=== PATIENT | female | born 1955 | race Caucasian/White ===

== ENCOUNTER 2017-07-11 07:23 | Day surgery (SDC) | payer BC ==
[~2017-07-11 07:23] MED LIST: LIDOCAINE 2% MDV 20 ML VIAL As Ordered; PROPOFOL 200 MG/20 ML VIAL As Ordered
[2017-07-11] MEDS: NS 1,000 ML IV (08:15)
[2017-07-11] MEDS ORDERED: PROPOFOL 200 MG/20 ML VIAL As Ordered ×2 (08:59)
== END 2017-07-11 09:45 | disposition home or self-care (01) ==
LOC: M OPP 07:23
DX: Z12.11 Encounter for screening for malignant neoplasm of colon (principal)
CPT/HCPCS: G0121

== ENCOUNTER → 2018-07-09 | Outpatient (CLI) | payer BC ==
[~2018-07-09] MED LIST changes: +CALCTAB29 PO; +ESTRCAP PO; +ESTRTAB10 PO; +FISH100049 PO; +GLUC1CAP10 PO; -LIDOCAINE 2% MDV 20 ML VIAL As Ordered; +MULTCAP11 PO; -PROPOFOL 200 MG/20 ML VIAL As Ordered
--- NOTE | 2018-07-09 10:43 | REPMRS ---
Patient History The patient states she had a clinical breast exam in June 2018. Patient is postmenopausal and is nulliparous. No known family history of cancer. 3D TOMOSYNTHESIS WAS PERFORMED. Digital Mammo Screening Bilat: July 09, 2018 - Exam #: [id number] Bilateral CC and MLO view(s) were taken. Technologist: Dione Matos, Technologist Prior study comparison: 2017, bilateral digital mammo screening bilat, performed at [facility]. FINDINGS: The breast tissue is heterogeneously dense. This may lower the sensitivity of mammography. There has been no change in the appearance of the mammogram from the prior studies. There is a moderate amount of residual fibroglandular tissue which is fairly symmetric. There is no interval development of dominant mass, areas of architectural distortion, or clustered microcalcification typical of malignancy. Assessment: BI-RADS/ACR category 1 mammogram. Negative Mammogram. Recommendation Routine screening mammogram in 1 year (for women over age 40). This mammogram was interpreted with the aid of an FDA-approved computer-aided dectection system. Electronically Signed By: Terry Mcleod MD 07/09/18 [id number]
== END ==
LOC: M RAD 09:07
PROVIDERS: ATTEND Internal Medicine
DX: Z12.31 Encounter for screening mammogram for malignant neoplasm of breast (principal); Z78.0 Asymptomatic menopausal state

== ENCOUNTER → 2018-08-13 | Outpatient (REF) | payer BC ==
[2018-08-13 16:33] LABS: BACTERIA, URINE AUTO NEGATIVE (NEGATIVE); RBC, URINE AUTO 4 /HPF (0-3); SQUAMOUS EPITHELIAL CELL UR AU 0 /HPF (0-6); WBC, URINE AUTO 1 /HPF (0-3)
== END ==
LOC: M LAB REF 16:18
PROVIDERS: ATTEND Internal Medicine
DX: R31.9 Hematuria, unspecified (principal)

== ENCOUNTER → 2018-09-03 | Outpatient (REF) | payer BC ==
[2018-09-03 14:31] LABS: APPEARANCE, URINE CLEAR (CLEAR); BACTERIA, URINE AUTO NEGATIVE (NEGATIVE); BILIRUBIN, URINE AUTO NEGATIVE (NEGATIVE); BLOOD, URINE BLOOD NEGATIVE (NEGATIVE); COLOR, URINE YELLOW (YELLOW); GLUCOSE, URINE (UA) AUTO NEGATIVE (NEGATIVE); KETONE, URINE AUTO NEGATIVE (NEGATIVE); LEUKOCYTE ESTERASE, URINE AUTO NEGATIVE (NEGATIVE); NITRITE, URINE AUTO NEGATIVE (NEGATIVE); PROTEIN, URINE AUTO NEGATIVE (NEGATIVE); RBC, URINE AUTO 0 /HPF (0-3); SPECIFIC GRAVITY URINE AUTO 1.012 (1.002-1.035); SQUAMOUS EPITHELIAL CELL UR AU 0 /HPF (0-6); UROBILINOGEN, URINE AUTO 0.2 mg/dL (0.0-2.0); WBC, URINE AUTO 0 /HPF (0-3)
== END ==
LOC: M SMT 13:33
PROVIDERS: ATTEND Nurse Practitioner Family
DX: R31.0 Gross hematuria (principal)

== ENCOUNTER → 2019-03-12 | Outpatient (REF) | payer BC ==
[2019-03-12 13:23] LABS: APPEARANCE, URINE CLEAR (CLEAR); BACTERIA, URINE AUTO NEGATIVE (NEGATIVE); BILIRUBIN, URINE AUTO NEGATIVE (NEGATIVE); BLOOD, URINE BLOOD NEGATIVE (NEGATIVE); COLOR, URINE STRAW (YELLOW); GLUCOSE, URINE (UA) AUTO NEGATIVE (NEGATIVE); KETONE, URINE AUTO NEGATIVE (NEGATIVE); LEUKOCYTE ESTERASE, URINE AUTO NEGATIVE (NEGATIVE); NITRITE, URINE AUTO NEGATIVE (NEGATIVE); PROTEIN, URINE AUTO NEGATIVE (NEGATIVE); RBC, URINE AUTO 0 /HPF (0-3); SPECIFIC GRAVITY URINE AUTO 1.004 (1.002-1.035); SQUAMOUS EPITHELIAL CELL UR AU 0 /HPF (0-6); UROBILINOGEN, URINE AUTO 0.2 mg/dL (0.0-2.0); WBC, URINE AUTO 0 /HPF (0-3)
== END ==
LOC: M SMT 13:00
PROVIDERS: ATTEND Nurse Practitioner Family
DX: R31.0 Gross hematuria (principal)

== ENCOUNTER → 2019-10-06 | Outpatient (CLI) | payer BC ==
--- NOTE | 2019-10-06 14:53 | REP ---
Clinical: Neoplasm. Technique: PA and lateral. Comparison: None. Findings: Diffuse left-sided parenchymal opacities and irregular pleural nodularity is suspicious for acute process including malignancy. Small right pleural effusion is also identified along with old healed right rib fracture. No cardiomegaly is suggested. Impression: Left sided opacities and pleural based lesions suspicious for pathology including neoplasm. Small right pleural effusion. Electronically Signed by Isael Inman MD 10/06/2019 02:44 P
== END ==
LOC: M RAD 14:21
PROVIDERS: ATTEND Internal Medicine
DX: D48.1 Neoplasm of uncertain behavior of connective and other soft tissue (principal); J90 Pleural effusion, not elsewhere classified

== ENCOUNTER → 2019-10-28 | Outpatient (REF) | payer BC ==
[~2019-10-28] MED LIST changes: +CALCD50TA PO; +FISH1000 PO; +MULTCAP PO; +XALK250C PO; +ZOFR8TAB24 PO
== END ==
LOC: M LAB REF 10:25
PROVIDERS: ATTEND Radiology Diagnostic Radiology
DX: N63.32 Unspecified lump in axillary tail of the left breast (principal)

== ENCOUNTER → 2019-10-29 | Outpatient (CLI) | payer BC ==
--- NOTE | 2019-12-03 15:47 | DEXA ---
AP SPINE L1 - L4 1.037 -1.3 0.3 LT FEMUR TOTAL 0.996 -0.1 1.0 LT NECK 0.923 -0.8 0.6 RT FEMUR TOTAL 1.007 0.0 1.1 RT NECK 0.943 -0.7 0.7 TOTAL BODY TOTAL OTHER COMMENTS:. Normal Bone Densitometry of the hips. There is low bone density of the spine, FOLLOW-UP: Recommendation for the next bone density exam: 2 years. YOUSIF
== END ==
LOC: M WHC 09:47
PROVIDERS: ATTEND Internal Medicine
DX: M81.8 Other osteoporosis without current pathological fracture (principal)

== ENCOUNTER → 2019-11-06 | Outpatient (CLI) | payer BC ==
[2020-01-25 15:45] LABS: GLUCOSE, FASTING SEE SEPARATE REPORT
== END ==
LOC: M LAB 09:26
PROVIDERS: ATTEND Physician Assistant
DX: R50.9 Fever, unspecified (principal); R19.7 Diarrhea, unspecified

== ENCOUNTER → 2019-11-06 | Outpatient (CLI) | payer BC | LOC: M LABSMTC 13:00 | PROVIDERS: ATTEND Pediatrics | DX: Z11.59 Encounter for screening for other viral diseases (principal); Z20.828 Contact with and (suspected) exposure to other viral communicable diseases ==

== ENCOUNTER → 2019-12-03 | Outpatient (CLI) | payer BC ==
--- NOTE | 2019-12-29 12:21 | REP ---
TOTAL BODY BONE SCAN REASON FOR EXAM: History of lung carcinoma. FINDINGS: After the intravenous administration of 22 mCi of Technetium-99m MDP, a total body bone scan was obtained. There is increased radionuclide accumulation seen in the thoracic spine particularly the upper thoracic level at the T2-T3 levels and at the T11 level. Increased radionuclide accumulation is also seen in the lumbar spine L2, L3, and L4. Increased radionuclide accumulation is seen with increased activity in multiple ribs, particularly right posterior first and second ribs, and right sixth rib along with left sixth, eighth, and ninth ribs posteriorly and the left fifth rib anteriorly. There is increased activity seen in the sacrum bilaterally and multifocally within the pelvis along the anterior superior iliac spine bilaterally and in the right acetabular region. Focal increased activity is seen in the proximal left femur and somewhat more subtly in the proximal right femur at the same level with a focal area of abnormal activity seen in the proximal right femoral diaphysis. 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 MTDD
== END ==
LOC: M RAD 07:54
PROVIDERS: ATTEND Internal Medicine Hematology & Oncology
DX: C34.90 Malignant neoplasm of unspecified part of unspecified bronchus or lung (principal); C79.51 Secondary malignant neoplasm of bone
CPT/HCPCS: 78306; A9503

== ENCOUNTER → 2019-12-04 | Outpatient (CLI) | payer BC ==
--- NOTE | 2019-12-04 14:33 | REPMRS ---
Patient History The patient states she has not had a clinical breast exam in over a year. No known family history of cancer. Digital Woman Screen Mammo: December 04, 2019 - Exam #: [id number] Bilateral CC and MLO view(s) were taken. Technologist: Enedina Harris, Technologist Prior study comparison: July 09, 2018, bilateral digital mammo screening bilat, performed at [facility]. 2017, bilateral digital mammo screening bilat, performed at [facility]. FINDINGS: The breast tissue is heterogeneously dense. This may lower the sensitivity of mammography. The Volpara volumetric breast density category is: C. There is a 10 mm new mass in the right breast axillary tail regoin. This merits further evaluation. There is a moderate amount of heterogeneously dense fibroglandular tissue which is fairly symmetric. There is no interval development of dominant mass, architectural distortion, or grouped microcalcification typical of malignancy. There has been no change in the appearance of the mammogram from the prior studies. 3-D tomosynthesis shows no additional findings. Assessment: BI-RADS/ACR category 0 mammogram, Incomplete: Need additional imaging evaluation and/or prior mammograms for comparison. Recommendation Ultrasound and special view mammogram of the right breast. This patient's Lifetime Breast Cancer RIsk is estimated at 8.0 %. This mammogram was interpreted with the aid of an FDA-approved computer-aided dectection system. Electronically Signed By: Jasbir Benavides MD 12/04/19 [id number]
--- NOTE | 2019-12-29 12:31 | REP ---
DIGITAL DIAGNOSTIC RIGHT BREAST MAMMOGRAPHY WITH CAD AND FOCUSED RIGHT BREAST SONOGRAPHY HISTORY: Screening mammography from earlier on this date with BI-RADS category 0 because of a nodular neodensity in the axillary tail region on the right. Diagnostic imaging was recommended. Comparison mammography is from July 09, 2018, and April 26, 2016. FINDINGS: Moderate scattered fibroglandular elements are seen. Magnified focal spot compression CC, true medial lateral, and MLO views confirm the presence of a fairly well circumscribed 10 mm spherical nodule in the axillary tail region of the right breast. No other mammographic finding. SONOGRAPHIC FINDINGS: Inferior to the axillary tail region there is a hypoechoic solid appearing lesion measuring 9 x 10 x 8 mm which is felt to correspond to the mammographic opacity. There is some enhanced through transmission. The lesion is superficial just under the skin. Also noted is a benign-appearing lymph node in the axilla with a thin cortical margin surrounding echogenic hilar fat. This measures 4.2 x 1.4 x 0.8 cm. IMPRESSION: BI-RADS category 4 suspicious right breast imaging. Nodular neodensity in the upper outer quadrant on the right breast mammographically corresponds to a solid appearing sonographic lesion. Ultrasound guided needle biopsy and marker clip placement is recommended with post clip placement unilateral right breast mammography. MTDD
== END ==
LOC: M WHC 11:54
PROVIDERS: ATTEND Internal Medicine
DX: N63.31 Unspecified lump in axillary tail of the right breast (principal); R92.2 Inconclusive mammogram
CPT/HCPCS: 76642; 77063; 77065; 77067; G0279

== ENCOUNTER → 2019-12-17 | Outpatient (CLI) | payer BC ==
[2019-12-17 17:19] VITALS: BP 122/64
--- NOTE | 2019-12-29 12:34 | REP ---
ULTRASOUND GUIDED RIGHT BREAST BIOPSY Dictated by SEJAL Hansen with Dr. Mcleod. The procedure was performed by SEJAL Hansen, under the direct supervision of Dr. Mcleod. The risks, benefits, and complications of the procedure were discussed with the patient prior to examination. An informed consent was obtained both written and verbally. Directly prior to the start of the procedure, a formal time-out was completed in the procedure room. The right breast was interrogated with ultrasound. An appropriate site was chosen for needle entry and this area was marked, prepped, and draped in a sterile fashion. Local and infiltrative anesthesia was achieved by using 10 mL of buffered Lidocaine. A skin mahendra was then made and through that skin mahendra, a 13-gauge co-axial needle was advanced to the mass under ultrasound guidance. Six core biopsy specimens were then obtained. The specimens were placed in formalin and will be sent to the lab for further evaluation. A marker clip was placed at the site of the biopsy. The biopsy device an co-axial needle were then removed and hemostasis was achieved and a soft dressing was applied to the entry site. The patient tolerated the procedure well and there were no immediate complications. The patient was given postcare instructions and discharged home. IMPRESSION: Uncomplicated ultrasound-guided right breast biopsy with microclip placement. [facility]
== END ==
LOC: M WHCPRO 14:41
PROVIDERS: ATTEND Internal Medicine
DX: C79.81 Secondary malignant neoplasm of breast (principal)

== ENCOUNTER → 2020-02-10 | Outpatient (CLI) | payer BC ==
[~2020-02-10] MED LIST changes: +GASTROGRAFIN SOLUTION 30ML (Q9963) As Ordered ONE; +ISOVUE-370 76% 100ML VIAL As Ordered ONE
--- NOTE | 2020-02-10 14:53 | REP ---
INDICATION: LUNG CA. COMPARISON: 10/08/2019 TECHNIQUE: Bolus 100 mL Isovue 370 scanning through the chest with coronal and sagittal reconstructions FINDINGS: There is dramatic improvement in the multiple parenchymal and pleural-based left lung mass is seen on the 10/08/2019 examination. There is pleural based soft tissue density remaining along the anterolateral aspect the left lung base involving the inferior segment of the lingula measuring 19 mm transverse by 6 mm thickness. Remainder of the upper lobe of pleural and parenchymal disease is no longer evident. In the lateral basal segment of the left lower lobe anteriorly sign other soft tissue dense area which has decreased in size now measuring about 3.6 by 1.5 cm, previously 4.9 x 4.1 cm at same level. Some linear fibro atelectatic changes in that same segment and also in the posterior basal segment with some nodular thickening. The right lung shows no definite infiltrates or masses. There is no pleural effusion today, the small right effusion on a previous abdomen CT study 11/17/2019 resolved. Heart is not enlarged there is no pericardial thickening or effusion the aorta is without aneurysm or dissection. Main, right and left pulmonary arteries are without filling defects in the mediastinum. There is no pathologic sized mediastinal or hilar adenopathy no axillary or supraclavicular mass. Bone windows show sclerotic focus anteriorly of the L1 vertebral body and at T2 and T3 sclerotic areas throughout those vertebral bodies consistent with bony metastatic disease endplate sclerosis seen at several levels and 1 focus of sclerosis in the T11 and T12 vertebral bodies as smaller hyperdense areas about 11 and 4 mm respectively. The T11 focus is slightly larger from the prior exam in the T12 focus was not seen. The L1 vertebral body is not in the field of view on the previous CT chest and the T2 and T3 findings are new. No compression fractures in the spine and the sternum, manubrium, clavicles, AC joints, scapulae as well as humeral heads and visualized ribs are grossly unremarkable. Please see CT abdomen report this date for discussion of the upper abdominal structures. There is a small hiatal hernia. IMPRESSION: A dramatic improvement in the of parenchymal and pleural based all lung masses on the left compared to the previous study in October. 2 areas persist as described above but both much smaller as discrete masses other curvilinear fibrotic changes noted with some thickening along their course which could also represent parenchymal disease from her lung malignancy. No findings in the left lung and overall a dramatic improvement. No effusion. Sclerotic lesions in multiple vertebral bodies as described <Electronically signed by Moo Sousa > 02/10/20 1657
--- NOTE | 2020-02-10 15:13 | REP ---
INDICATION: LUNG CA. COMPARISON: 11/17/2019 TECHNIQUE: Bolus of 100 mL Isovue 370 scanning through abdomen pelvis with coronal and sagittal reconstructions. Oral Gastrografin mixture per our bowel contrast protocol given. Delayed images through the abdomen. FINDINGS: CT abdomen: A dramatic improvement in the lesions in the right lung base as seen on chest CT the same day. See that report. Small hiatal hernia. There is 9 mm low-density focus in the right lobe of the liver that measured 15 mm on the previous CT. Posteriorly in the right hepatic lobe the ill-defined rim enhancing lesion on the previous study is much less well-defined and I cannot confidently identify it. Subtle left lobe lesion on the previous study is not identified today as well. There are no other liver findings or hepatomegaly. No biliary dilatation. Gallbladder grossly intact. No splenomegaly or focal lesion and no ascites in the upper abdomen. Pancreas was grossly intact. The aorta is without aneurysm. Nodular appearance of the left adrenal gland on previous study is also improved. I cannot measure a discrete nodule. Small bowel loops and colon in the abdominal portion of the scan are grossly intact. No perforation or free air. Bone windows show new prominent sclerotic focus at L2 with scattered sclerotic foci at T12, L1, L3-L4 and L5 with only the T12 and L2 lesions seen on the previous exam andmarginally larger today. About half the volume of L2 vertebral body is replaced by sclerotic metastatic disease. There also appears to be sclerosis and some thickening of the spinous process of L4 as a new metastatic finding. Visualized ribs grossly intact CT pelvis sacrum shows sclerotic focus in the right sacral ala and the right lamina. A sclerotic focus in right iliac bone posteriorly and another in the left with sclerosis in an area which was previously more lytic is also sclerosis in the left anterior superior iliac spine an area that was previously more lytic. The hips, intertrochanteric regions and proximal femoral shaft included unremarkable. There is 1 focus of sclerosis in the inferior pubic ramus on the right side. The uterus shows multiple calcified fibroids and irregular lobulated contour, enlarged but stable. No adnexal mass or pelvic free fluid. The colon is without colitis or diverticulitis. Small bowel loops in the distal ileum are unremarkable. Cecum shows no inflammatory changes and appendix is seen and normal. No ventral or inguinal hernia. IMPRESSION: 1. Progression of bony metastatic disease in the spine, sacrum pelvis and pubic bone as described. 2. Marked improvement in the right base lung and pleural masses, please see CT chest description for that finding. Clearing of the left effusion seen on the previous CT abdomen 11/17/2019. 3. Improvement in the metastatic lesions seen in the liver as described above. 4. Improvement in the nodular appearance of the left adrenal gland. <Electronically signed by Moo Sousa > 02/10/20 [id number]
== END ==
LOC: M RAD 11:25
PROVIDERS: ATTEND Internal Medicine Hematology & Oncology
DX: C34.90 Malignant neoplasm of unspecified part of unspecified bronchus or lung (principal)

== ENCOUNTER → 2020-02-17 | Outpatient (CLI) | payer BC ==
[~2020-02-17] MED LIST changes: -GASTROGRAFIN SOLUTION 30ML (Q9963) As Ordered ONE; -ISOVUE-370 76% 100ML VIAL As Ordered ONE
--- NOTE | 2020-02-17 16:13 | REP ---
INDICATION: TENDERNESS ? BAKERS CYST RT KNEE, HX LUNG CA. COMPARISON: None TECHNIQUE: Multiple ultrasonographic images of the deep venous structures of the right thigh were obtained from the level of the common femoral vein to the popliteal vein in the longitudinal and transverse scan planes along with Doppler interrogation and color flow Doppler imaging. FINDINGS: There is no abnormal echogenic material seen within any of the visualized deep venous structures that would suggest acute thrombosis. Coaptation is unremarkable throughout. Doppler interrogation shows an expected response to respiratory variability and augmentation. The color flow Doppler images show what appears to be a normal vascular pattern throughout. There is a 5.1 x 1.3 x 4.1 cm popliteal fossa cyst. IMPRESSION: There is no ultrasonographic evidence of deep venous thrombosis involving any of the visualized deep venous structures of the right thigh as described above. Popliteal fossa cyst measuring 5.1 x 4.1 x 1.3 cm. Accredited by the [employer] in Vascular Peripheral Ultrasound. <Electronically signed by Moo Sousa > 02/17/20 [id number]
== END ==
LOC: M RAD 15:45
PROVIDERS: ATTEND Internal Medicine Hematology & Oncology
DX: M71.21 Synovial cyst of popliteal space [Baker], right knee (principal); Z85.118 Personal history of other malignant neoplasm of bronchus and lung

== ENCOUNTER → 2020-05-16 | Outpatient (CLI) | payer BC ==
[~2020-05-16] MED LIST changes: +GASTROGRAFIN SOLUTION 30ML (Q9963) As Ordered ONE; +ISOVUE-370 76% 100ML VIAL As Ordered ONE; +MULT-90 PO
--- NOTE | 2020-05-17 07:55 | ECGEPIP ---
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
--- NOTE | 2020-05-17 08:17 | REP ---
INDICATION: F/U LUNG CA COMPARISON: 02/10/2020 TECHNIQUE: Axial contrast enhanced images from the thoracic inlet to the upper abdomen with 100 ml Isovue 370 intravenous contrast material followed by CT of the abdomen and pelvis. Coronal and sagittal reformations obtained. This CT examination was performed using the following dose reduction techniques: Automated exposure control, adjustment of mA and/or kv according to the patient's size, and use of iterative reconstruction technique. FINDINGS: Nodular areas of soft tissue at the left base along with linear fibro atelectatic changes primarily in the left lower lobe are again identified and essentially unchanged. The right hemithorax is clear. No new area of consolidation, nodule or mass lesion identified. No effusion. No pneumothorax. Tracheobronchial tree is patent. No significant adenopathy noted. Further evaluation of the mediastinum demonstrates stable appearance to the thoracic aorta, pulmonary vasculature, and heart/pericardium. No aortic aneurysm or dissection. No cardiomegaly or pericardial effusion. Skeletal structures again demonstrate scattered sclerotic changes in multiple thoracic vertebral bodies which are relatively similar to prior examination. IMPRESSION: 1. Nodular soft tissue and linear fibro atelectatic changes in the left lung base remains stable. 2. No new acute mediastinal or pleuroparenchymal process appreciated. 3. Scattered sclerotic foci within multiple thoracic and upper lumbar vertebral bodies similar to prior examination. <Electronically signed by Isael Inman > 05/17/20 0815
--- NOTE | 2020-05-17 08:25 | REP ---
INDICATION: F/U LUNG CA. COMPARISON: 02/10/2020 TECHNIQUE: Axial contrast-enhanced images from the lung bases to the pubic symphysis using oral and 100 cc Isovue 370 intravenous contrast material. . This CT examination was performed using the following dose reduction techniques: Automated exposure control, adjustment of mA and/or kv according to the patient's size, and the use of iterative reconstruction technique. FINDINGS: Liver, spleen, pancreas, gallbladder, bilateral adrenal glands and kidneys are normal. Previously noted hepatic lesions are not identifiable on current exam. Enteric system demonstrates small hiatal hernia and no evidence for bowel obstruction or acute inflammatory process. Normal terminal ileum and appendix are identified in the right lower quadrant. Pelvis demonstrates markedly enlarged heterogeneous myomatous uterus with dystrophic calcifications in a large degenerating fibroid. Bladder is normal. No ascites. No free air. No obvious adenopathy. No obvious solitary mass lesion. Abdominal aorta and vasculature normal. Skeletal structures demonstrate diffuse stable sclerotic metastatic foci unchanged from prior examination. IMPRESSION: 1. No obvious acute abdominopelvic pathology appreciated. No evidence for malignancy or metastatic disease. Previously noted hepatic lesions are not identifiable on current exam. 2. Enlarged uterus with dystrophic degenerating fibroid. 3. Small hiatal hernia. 4. Stable skeletal metastases. <Electronically signed by Isael Inman > 05/17/20 0868
== END ==
LOC: M RAD 08:03 → M EKG 08:03
PROVIDERS: ATTEND Internal Medicine Hematology & Oncology
DX: C34.00 Malignant neoplasm of unspecified main bronchus (principal)
CPT/HCPCS: 71260; 74177; 93005; Q9963; Q9967

== ENCOUNTER → 2020-08-31 | Outpatient (CLI) | payer MEDICARE, BC ==
[~2020-08-31] MED LIST changes: +COVI100V IM; -GASTROGRAFIN SOLUTION 30ML (Q9963) As Ordered ONE; -ISOVUE-370 76% 100ML VIAL As Ordered ONE
--- NOTE | 2020-08-31 14:07 | REPVR ---
PROCEDURE INFORMATION: Exam: CT Abdomen And Pelvis Without Contrast Exam date and time: 08/31/2020 12:59 PM Age: 65 years old Clinical indication: Condition or disease; Cancer; Other: Lung; Additional info: Lung CA TECHNIQUE: Imaging protocol: Computed tomography of the abdomen and pelvis without contrast. Radiation optimization: All CT scans at this facility use at least one of these dose optimization techniques: automated exposure control; mA and/or kV adjustment per patient size (includes targeted exams where dose is matched to clinical indication); or iterative reconstruction. COMPARISON: CT ABD PELVIS WITH CONTRAST 05/16/2020 9:57 AM FINDINGS: Liver: Normal. No mass. Gallbladder and bile ducts: Normal. No calcified stones. No ductal dilation. Pancreas: Normal. No ductal dilation. Spleen: Normal. No splenomegaly. Adrenal glands: Normal. No mass. Kidneys and ureters: Normal. No hydronephrosis. Stomach and bowel: Unremarkable. No obstruction. No mucosal thickening. Appendix: No evidence of appendicitis. Intraperitoneal space: Unremarkable. No free air. No significant fluid collection. Vasculature: Unremarkable. No abdominal aortic aneurysm. Lymph nodes: Unremarkable. No enlarged lymph nodes. Urinary bladder: Unremarkable as visualized. Reproductive: Fibroid uterus. Bones/joints: Metastatic disease to the lumbar spine appears stable. Metastatic disease is stable in the pelvis. Soft tissues: Unremarkable. Other findings: The chest will be discussed on a separate exam. IMPRESSION: No change. Electronically signed by: Cali Mcclain On 08/31/2020 14:07:00 PM
--- NOTE | 2020-08-31 14:18 | REPVR ---
PROCEDURE INFORMATION: Exam: CT Chest Without Contrast; Diagnostic Exam date and time: 08/31/2020 12:59 PM Age: 65 years old Clinical indication: Condition or disease; Lung condition and disease; Cancer of the lung; Bilateral; Unspecified; Additional info: Lung CA TECHNIQUE: Imaging protocol: Diagnostic computed tomography of the chest without contrast. Radiation optimization: All CT scans at this facility use at least one of these dose optimization techniques: automated exposure control; mA and/or kV adjustment per patient size (includes targeted exams where dose is matched to clinical indication); or iterative reconstruction. COMPARISON: CT Chest with contrast 05/16/2020 9:57 AM FINDINGS: Lungs: There is a stable density noted involving the left lower lobe adjacent to the left pericardial fat pad measuring 11.5 mm image 201/63. The right lung demonstrates minimal stable basilar scarring. Pleural spaces: Unremarkable. No pneumothorax. No pleural effusion. Heart: Unremarkable. Aorta: The ascending aorta is dilated to 38 mm. This is unchanged. Lymph nodes: There is no evidence of abnormal mediastinal hilar adenopathy given limitations of no intravenous contrast. Bones/joints: Stable metastatic disease is noted to the spine. Soft tissues: Unremarkable. Other findings: The abdomen and pelvis will be discussed in another dictation. The mild scarring is seen in the left base as well. IMPRESSION: No change. Limited mediastinal and hilar evaluation due to lack of intravenous contrast. Electronically signed by: Cali Mcclain On 08/31/2020 14:18:04 PM
== END ==
LOC: M RAD 12:44
PROVIDERS: ATTEND Internal Medicine Hematology & Oncology
DX: C34.90 Malignant neoplasm of unspecified part of unspecified bronchus or lung (principal); R91.8 Other nonspecific abnormal finding of lung field

== ENCOUNTER → 2020-12-05 | Outpatient (CLI) | payer MEDICARE, BC ==
[~2020-12-05] MED LIST changes: +TUMS500C PO
--- NOTE | 2020-12-07 06:06 | REPMRS ---
Patient History The patient states she had a clinical breast exam in September 2020. No known family history of cancer. Malignant US guided breast biopsy. of the right breast, December 17, 2019. No breast complaints today Patient signed the MRS sheet 1st covid vaccine 06/09/20-right arm-Moderna 2nd covid vaccine 07/07/20-right arm Priors on PACS Patient Identification Verified Digital Woman Screen Mammo: December 05, 2020 - Exam #: [id number] Bilateral CC and MLO view(s) were taken. Technologist: Dione Matos, Technologist Prior study comparison: December 04, 2019, bilateral digital woman screen mammo performed at [facility]. July 09, 2018, bilateral digital mammo screening bilat, performed at [facility]. 2017, bilateral digital mammo screening bilat, performed at [facility]. FINDINGS: The breast tissue is heterogeneously dense. This may lower the sensitivity of mammography. The Volpara volumetric breast density category is: C. There is a moderate amount of heterogeneously dense fibroglandular tissue which is fairly symmetric. There is no interval development of dominant mass, architectural distortion, or grouped microcalcification typical of malignancy. There has been no change in the appearance of the mammogram from the prior studies. 3-D tomosynthesis shows no additional findings. Assessment: BI-RADS/ACR category 1 mammogram. Negative Mammogram. Recommendation Routine screening mammogram of both breasts in 1 year (for women over age 40). This mammogram was interpreted with the aid of an FDA-approved computer-aided dectection system. Electronically Signed By: Jasbir Benavides MD 12/05/20 2832
== END ==
LOC: M WHC 10:49
PROVIDERS: ATTEND Internal Medicine
DX: Z12.31 Encounter for screening mammogram for malignant neoplasm of breast (principal)

== ENCOUNTER → 2020-12-13 | Outpatient (CLI) | payer MEDICARE, BC ==
[~2020-12-13] MED LIST changes: +GASTROGRAFIN SOLUTION 30ML (Q9963) As Ordered ONE; +ISOVUE-370 76% 100ML VIAL As Ordered ONE
--- NOTE | 2020-12-13 14:05 | REPVR ---
PROCEDURE INFORMATION: Exam: CT Neck With Contrast Exam date and time: 12/13/2020 1:34 PM Age: 65 years old Clinical indication: Condition or disease; Cancer; Other: Lung; Additional info: Lung CA TECHNIQUE: Imaging protocol: Computed tomography images of the neck with contrast. Radiation optimization: All CT scans at this facility use at least one of these dose optimization techniques: automated exposure control; mA and/or kV adjustment per patient size (includes targeted exams where dose is matched to clinical indication); or iterative reconstruction. Contrast material: ISOVUE 370; Contrast volume: 75 ml; Contrast route: INTRAVENOUS (IV); COMPARISON: CT Chest without contrast 08/31/2020 12:57 PM FINDINGS: Brain: Mild atrophic changes in the brain. Orbital cavity: The orbits are intact. Mastoid air cells: The mastoids are well aerated. Paranasal sinuses: No air-fluid levels in the paranasal sinuses. Nasopharynx: Unremarkable. Dental: Artifact from patient's dental hardware limits evaluation of the neck. Oropharynx: Unremarkable. No significant tonsillar enlargement. Hypopharynx: Unremarkable. Larynx: Unremarkable. Normal epiglottis. Retropharyngeal space: Unremarkable. Submandibular/Parotid glands: Normal. Glands are normal in size. Thyroid: 7 mm low-density lesion in the left thyroid lobe not requiring follow-up. Lymph nodes: No confluent lymphadenopathy. Trachea: Visualized trachea is unremarkable. Lungs: The included lung bases are clear. Bones/joints: No acute fracture. Age-appropriate degenerative changes without lytic or blastic disease. Vasculature: No venous thrombus. Soft tissues: Unremarkable. No significant soft tissue swelling. IMPRESSION: 1. No dominant mass or confluent lymphadenopathy. 2. Thyroid lesion not requiring follow-up. 3. Limited exam due to metallic streak artifact. COMMENTS: Consistent with the [employer]'s Incidental Findings Committee white paper (J [employer] Twin Radiol 2015): In patients aged 35 years and older with an incidental thyroid nodule equal to or greater than 1.[address], MRI or extrathyroidal US, further evaluation with dedicated thyroid US is recommended for patients with normal life expectancy and without comorbidities. For smaller nodules without suspicious features, no further evaluation or follow up is recommended. Electronically signed by: Sid Pratt On 12/13/2020 14:05:18 PM
--- NOTE | 2020-12-13 14:32 | REP ---
INDICATION: LUNG CA. COMPARISON: Multiple the latest 08/31/2020 TECHNIQUE: Standard helical technique after the intravenous administration of 100 cc Isovue 370 and oral bowel preparatory contrast administration. FINDINGS: The lung bases are unchanged. There is a nodular density in the cristina basal segment of the left lower lobe status quo. The liver, gallbladder, spleen, pancreas, adrenal glands, and kidneys are essentially unchanged the abdominal aorta and para-aortic regions are within normal limits. The bowel loops and the mesenteries are essentially unchanged there is no mass or adenopathy. There is no evidence of free fluid or free air. Calcific uterine myomatous changes status quo. No significant change in appearance of the osseous metastatic disease. IMPRESSION: No significant change. Findings as described above. <Electronically signed by Doni Carson > 12/13/20 [id number]
--- NOTE | 2020-12-13 14:45 | REP ---
INDICATION: LUNG CA COMPARISON: Multiple the latest 08/31/2020 noncontrast enhanced exam TECHNIQUE: Standard helical technique after the intravenous administration of 100 cc Isovue 370. FINDINGS: There is no significant change in appearance of the mediastinum or pulmonary sol. There is no evidence of a mass or adenopathy. There are no pleural or pericardial effusions. Evaluation of the osseous structures again shows skeletal metastatic disease status quo. Evaluation of the lung berkowitz shows a new pleural base nodule in the inferior lingula which measures 9 mm. There is an unchanged nodular density in the cristina basal segment of the left lower lobe. There is cylindrical bronchiectasis status quo. There is stable biapical pleuroparenchymal scarring. IMPRESSION: 1. There is a new pleural base nodule in the inferior lingula as described above. According to the revised Fleischner society criteria CT-PET is warranted. 2. Chronic lung field changes as described above. 3. Other findings as described above. <Electronically signed by Doni Carson > 12/13/20 [id number]
== END ==
LOC: M RAD 11:34
PROVIDERS: ATTEND Internal Medicine Hematology & Oncology
DX: C34.90 Malignant neoplasm of unspecified part of unspecified bronchus or lung (principal)
CPT/HCPCS: 70491; 71260; 74177; Q9963; Q9967

== ENCOUNTER → 2021-01-02 | Outpatient (CLI) | payer MEDICARE, BC ==
[~2021-01-02] MED LIST changes: -GASTROGRAFIN SOLUTION 30ML (Q9963) As Ordered ONE; -ISOVUE-370 76% 100ML VIAL As Ordered ONE
--- NOTE | 2021-01-02 17:43 | REP ---
INDICATION: RESTAGING LEFT LUNG CANCER C34.82. COMPARISON: Comparison CT study of the chest and abdomen pelvis 13 December 2020. TECHNIQUE: Fifty-four minutes following the intravenous injection of a 8.60 mCi dose of F-18 FDG, three-dimensional PET scintigraphy is acquired from the skull base to the proximal thighs. Triplanar noncontrast CT scanning is acquired through the same anatomic range for attenuation correction, and image registration with scan parameters optimized to minimize radiation exposure to the patient. PET scintigraphy and CT datasets were fused and displayed on a workstation with multiplanar and projection display capability. FINDINGS: Head and neck soft tissues are unremarkable. No axillary or supraclavicular adenopathy is seen. There is mildly hypermetabolic uptake in the recently identified new nodule in the lingular segment of the left upper lobe. Maximum standard uptake value is 2.80. There is discernible but non hypermetabolic uptake in a tiny pleural based nodule in the left lower lobe maximum SUV 1.43. There is some nodular soft tissue density in the left lateral pleural angle. One of these nodular areas is mildly hypermetabolic, 2.97. There is discernible but non hypermetabolic uptake in a tiny pleural based nodular density in the left apex, SUV 1.78. No other abnormal pulmonary parenchymal hypermetabolic uptake is seen. There is a hypermetabolic nodule in the left lobe of the liver consistent with metastasis. Maximum standard uptake value is 14.77. In addition, there is hypermetabolic periportal lymphadenopathy. Maximum standard uptake value in this location is 19.68. No other focal liver lesion is seen. No other abnormal hypermetabolic uptake is seen in the abdomen or pelvis. No abnormal skeletal uptake is seen. Calcifications associated with the uterine leiomyomas are seen in the pelvis. The uterus is not hypermetabolic. IMPRESSION: There is a lesion in the left lobe of the liver and periportal adenopathy in the upper abdomen which are both rather hypermetabolic. There are multiple foci of mildly increased uptake in the left chest, predominantly in a pleural based nodular pattern. Findings are consistent with metastatic disease. <Electronically signed by Jasbir Benavides > 01/02/21 [id number]
== END ==
LOC: M PLARAD 13:18
PROVIDERS: ATTEND Internal Medicine Hematology & Oncology
DX: C34.82 Malignant neoplasm of overlapping sites of left bronchus and lung (principal)
CPT/HCPCS: 78815; A9552

== ENCOUNTER → 2021-03-01 | Outpatient (CLI) | payer MEDICARE, BC ==
[~2021-03-01] MED LIST changes: +GASTROGRAFIN SOLUTION 30ML (Q9963) As Ordered ONE; +ISOVUE-370 76% 100ML VIAL As Ordered ONE
--- NOTE | 2021-03-01 16:19 | REP ---
INDICATION: MALIGNANT NEOPLASM OF OVRLP SITES OF UNSP BRONCHUS. COMPARISON: 12/13/2020 TECHNIQUE: Axial contrast-enhanced images from the lung bases to the pubic symphysis using oral and 100 cc Isovue 370 intravenous contrast material. Delayed images of the abdomen with coronal and sagittal reformations obtained. This CT examination was performed using the following dose reduction techniques: Automated exposure control, adjustment of mA and/or kv according to the patient's size, and the use of iterative reconstruction technique. FINDINGS: Lung bases are clear. Liver again demonstrates 1.6 cm lesion in the left lateral segment which may represent hemangioma versus malignancy/metastatic focus. Spleen, pancreas, gallbladder, bilateral adrenal glands and kidneys are normal. There is soft tissue in the sadia hepatis concerning for adenopathy (series 201; images 21-30). The enteric system including stomach, small, and large bowel appears normal. No evidence for obstruction or acute inflammatory process. Normal terminal ileum and appendix are identified in the right lower quadrant. Pelvis demonstrates normal bladder and enlarged myomatous uterus with degenerating calcified fibroids noted. No ascites. No free air. No intraperitoneal or retroperitoneal adenopathy. Abdominal aorta and vasculature appear normal. Skeletal structures demonstrate scattered sclerotic foci consistent with metastatic lesions. IMPRESSION: 1. 1.6 cm lesion in the left hepatic lobe concerning for metastatic disease given the patient's history. 2. Periportal adenopathy suspected inseparable from the adjacent pancreatic head and duodenum making measurements and further evaluation difficult. 3. Stable metastatic osseous lesions. <Electronically signed by Isael Inman > 03/01/21 [id number]
== END ==
LOC: M RAD 13:54
PROVIDERS: ATTEND Internal Medicine Medical Oncology
DX: C34.80 Malignant neoplasm of overlapping sites of unspecified bronchus and lung (principal); K76.89 Other specified diseases of liver
CPT/HCPCS: 74177; Q9963; Q9967

== ENCOUNTER → 2021-03-17 | Outpatient (CLI) | payer MEDICARE, BC ==
[~2021-03-17] MED LIST changes: -GASTROGRAFIN SOLUTION 30ML (Q9963) As Ordered ONE; -ISOVUE-370 76% 100ML VIAL As Ordered ONE; +PROL60SO SC
--- NOTE | 2021-03-17 12:44 | RADONC.CN ---
Radiation Oncology Hx/Consult Radiation Oncology Consult Date of Service: Mar 17, 2021 Pt Identifier Vicki Hernandez is a 65 year old female never smoker with a history of ROS1+ metastatic NSCLC diagnosed in 2019. She has been on crizotinib since diagnosis. She has had stable disease until PET-CT on 01/02/21 revealed progression in periportal adenopathy as well as a solitary lesion in segment 3 of the liver. She is seen today for consideration of palliative RT to these oligoprogressive lesions. Diagnosis/Treatment History Oncologic History As above Recent data: 03/01/21 CT abdomen pelvis 1. 1.6 cm lesion in the left hepatic lobe concerning for metastatic disease given the patient's history. 2. Periportal adenopathy suspected inseparable from the adjacent pancreatic head and duodenum making measurements and further evaluation difficult. 3. Stable metastatic osseous lesions. Interval History Vicki feels well. She is tolerating crizotinib without any discernible side effects. Recently transitioned to Dr. Perry @ [facility] for care. Recommended she stay on crizotinib. She has no diarrhea, no nausea, no abdominal pain. Appetite and weight are stable. Past Medical History: HPL HTN Past Surgical History: Trigger finger release Family History: No family cancer history Social History: Never smoker 1 drink per week Allergies / Meds Allergies: Coded Allergies: No Known Allergies (Unverified , 07/03/17) Home Meds Reported Medications Crizotinib (Xalkori) 250 Mg Capsule, 1 CAP PO BID for 30 Days, #60 CAP 03/17/21 Denosumab Injection (Prolia) 60 Mg/1 Ml Syringe, 60 MG SC, SYRINGE 03/17/21 Calcium Carbonate (Tums) 200 Mg Tab.chew, 1 TAB PO DAILY for cough and congestion for 7 Days, #56 TAB 09/28/20 Covid-19 Vacc,Mrna(Moderna)/Pf (Moderna Covid19 Vacc(Unapprov)) 100 Mcg/0.5 Ml Vial, 100 MCG IM, VIAL 07/27/20 Multivitamin (Multivitamin) 1 Each Tablet, 1 EACH PO DAILY, TAB 03/30/20 Calcium/Vitamin D (Calcium 500-Vit D3 200 Tablet) 1 Each Tablet, 1 TAB PO BID for 30 Days, #60 TAB 01/01/20 Soy Isofl/Blk Coh/Gr Tea/Yerba ([employer] Caplet) 1 Tab Tab, 1 TAB PO DAILY, TAB 3/28/18 Review of Systems Constitutional: Denies: Fatigue, Weight Loss, Normal appetite HEENT: Denies: Head Aches Pulmonary: Denies: Dyspnea, Cough Cardiovascular: Denies: Chest Pain, Edema Gastrointestinal: Denies: Abdominal Pain, Diarrhea Hematologic: Denies: Enlarged Lymph Nodes Neurological: Denies: Weakness, Numbness Psych: Reports: Mood Normal Vital Signs Ht 66" Wt 159 lbs BMI 25.7 T 99.3 P 63 RR 18 BP 120/75 O2 100% Pain 0 Fatigue 0 General Exam: Alert, Cooperative, No Acute Distress Eye Exam: PERRLA, EOMI ENT EXAM: Atraumatic Neck Exam: Supple Chest Exam: Clear to auscultation, Normal air movement Heart Exam: Rate Normal Abdomen Exam: Soft Extremity Exam: Negative: Edema Skin Exam: Nl turgor and temperature Neuro Exam: Normal Gait, Normal Speech, Cranial Nerves 3-12 NL Psych Exam: Mental status NL Diagnostic and Laboratory Diagnostic Review Radiologic images, relevant labs and pathology reports were personally reviewed and discussed with Ms. Hernandez. Assessment and Plan Impression Ms. Hernandez is a 65 year old female with a history of never smoker with a history of ROS1+ metastatic NSCLC diagnosed in 2019. She has been on crizotinib since diagnosis. She has had stable disease until PET-CT on 01/02/21 revealed progression in periportal adenopathy as well as a solitary lesion in segment 3 of the liver. She is seen today for consideration of palliative RT to these oligoprogressive lesions. Stage Left upper lobe NSCLC [id number] ROS1+ stage IVB Performance Status ECOG 0 Plan We had an extensive discussion with Ms. Hernandez regarding the diagnosis at hand and available therapeutic options. She is tolerating crizotinib well. She has oligoprogressive disease in liver segment 3 a 1.6 cm lesion, and a 4 cm aggregate of periportal LNs. Dr. Perry recommends she stat on this medication as the remainder of disease is quiescent. I recommend that we irradiate the lesions in question, I will give ~ 50 Gy in 10 fractions to each lesion, given this clinical scenario I will use expiration breath hold technique and daily CBCT to ensure accurate localization. I anticipate that the targets will have to be treated di-isocentrically, with DCA planning. We discussed the logistics of receiving radiation therapy in detail including the need for a 1-time planning session. This can occur in the coming week. I reviewed the side effects of treatment namely, fatigue, nausea, and diarrhea. I would obtain a response assessment CT abdomen and pelvis @ 3 months post- treatment. After discussing the risks, benefits and alternatives to radiation therapy, Ms. Hernandez was amenable to pursuing radiotherapy. All questions were answered to t he patient's satisfaction. We instructed the patient that if there were any questions,concerns or changes in clinical status in the interim to contact us. Recommendations RT to the periportal LNs, and segment 3 lesion ~50 Gy in 10 fractions Simulation in the coming week Billing Statement Total time of [52] minutes was spent preparing for the visit [4], obtaining HPI [8], examining the patient [3], reviewing diagnostic tests [10], discussing management options [15], coordinating care [3], and writing this note [9]. JEAN CARLOS NOVOA MD Mar 17, 2021 12:44
== END ==
LOC: M ONCR 09:50
PROVIDERS: ATTEND General Practice
DX: C34.90 Malignant neoplasm of unspecified part of unspecified bronchus or lung (principal); C78.7 Secondary malignant neoplasm of liver and intrahepatic bile duct; Z79.899 Other long term (current) drug therapy

== ENCOUNTER 2021-03-27 13:41 | Outpatient (RCR) | payer MEDICARE, BC ==
[2021-03-27] MEDS ORDERED: ONDA-83 PO (16:08)
== END 2021-04-07 ==
LOC: M ONCR 13:41
PROVIDERS: ATTEND General Practice
DX: C78.7 Secondary malignant neoplasm of liver and intrahepatic bile duct (principal)

== ENCOUNTER → 2021-04-20 | Outpatient (CLI) | payer MEDICARE, BC ==
[~2021-04-20] MED LIST changes: +ONDA-83 PO
[2021-04-20 13:25] LABS: BASO % 0.2 % (0.0-1.0); EOS # 0.1 10^3/uL (0.0-0.5); EOS % 1.6 % (0.0-3.0); HEMOGLOBIN 12.3 g/dl (12.0-15.5); LYMPH % 19.7 % (24.0-44.0); MEAN CORPUSCULAR HEMOGLOBIN 31.5 pg (27.0-33.0); MEAN CORPUSCULAR HGB CONC 32.4 g/dl (32.0-36.5); MEAN CORPUSCULAR VOLUME 97.2 fl (80.0-96.0); MONO # 0.7 10^3/uL (0.0-0.8); MONO % 13.9 % (2.0-8.0); NEUTROPHILS # 3.3 10^3/uL (1.5-8.5); PLATELET COUNT, AUTOMATED 340 10^3/uL (150-450); RED BLOOD COUNT 3.91 10^6/uL (4.00-5.40); WHITE BLOOD COUNT 5.1 10^3/uL (4.0-10.0)
[2021-04-20 13:54] LABS: ALBUMIN 3.4 GM/DL (3.2-5.2); ALT/SGPT 46 U/L (12-78); BILIRUBIN,TOTAL 0.3 MG/DL (0.2-1.0); BLOOD UREA NITROGEN 14 MG/DL (7-18); CALCIUM LEVEL 8.9 MG/DL (8.8-10.2); CARBON DIOXIDE LEVEL 30 MEQ/L (21-32); CHLORIDE LEVEL 104 MEQ/L (98-107); CREATININE FOR GFR 0.85 MG/DL (0.55-1.30); GLOMERULAR FILTRATION RATE > 60.0 (>45); GLUCOSE, FASTING 97 MG/DL (70-100); POTASSIUM SERUM 4.9 MEQ/L (3.5-5.1); SODIUM LEVEL 140 MEQ/L (136-145); TOTAL PROTEIN 6.9 GM/DL (6.4-8.2)
== END ==
LOC: M LAB 12:19
PROVIDERS: ATTEND Nurse Practitioner
DX: C34.80 Malignant neoplasm of overlapping sites of unspecified bronchus and lung (principal)

== ENCOUNTER → 2021-04-25 | Outpatient (CLI) | payer MEDICARE, BC ==
[~2021-04-25] MED LIST changes: +PROHANCE 279.3MG/ML 15ML VIAL As Ordered ONE
== END ==
LOC: M RAD 14:20
PROVIDERS: ATTEND Internal Medicine Hematology & Oncology
DX: R93.0 Abnormal findings on diagnostic imaging of skull and head, not elsewhere classified (principal); C78.00 Secondary malignant neoplasm of unspecified lung
CPT/HCPCS: 70553; A9576

== ENCOUNTER 2021-05-02 10:59 | Outpatient (RCR) | payer MEDICARE, BC ==
[~2021-05-02 10:59] MED LIST changes: -PROHANCE 279.3MG/ML 15ML VIAL As Ordered ONE
== END 2021-05-08 ==
LOC: M ONCR 10:59
PROVIDERS: ATTEND General Practice
DX: C78.7 Secondary malignant neoplasm of liver and intrahepatic bile duct (principal)

== ENCOUNTER → 2021-05-22 | Outpatient (CLI) | payer MEDICARE, BC ==
[~2021-05-22] MED LIST changes: +GASTROGRAFIN SOLUTION 30ML (Q9963) As Ordered ONE; +ISOVUE-370 76% 100ML VIAL As Ordered ONE
== END ==
LOC: M RAD 09:20
PROVIDERS: ATTEND Internal Medicine Hematology & Oncology
DX: C34.80 Malignant neoplasm of overlapping sites of unspecified bronchus and lung (principal); C79.51 Secondary malignant neoplasm of bone; R19.09 Other intra-abdominal and pelvic swelling, mass and lump
CPT/HCPCS: 71260; 74177; Q9963; Q9967

== ENCOUNTER → 2021-07-19 | Outpatient (CLI) | payer MEDICARE, BC ==
[~2021-07-19] MED LIST changes: -GASTROGRAFIN SOLUTION 30ML (Q9963) As Ordered ONE; -ISOVUE-370 76% 100ML VIAL As Ordered ONE
[2021-07-19 14:30] LABS: ALBUMIN 3.7 GM/DL (3.2-5.2); BILIRUBIN,TOTAL 0.4 MG/DL (0.2-1.0); CALCIUM LEVEL 9.2 MG/DL (8.8-10.2); CREATININE FOR GFR 1.03 MG/DL (0.55-1.30); GLOMERULAR FILTRATION RATE 57.3 (>45); POTASSIUM SERUM 3.9 MEQ/L (3.5-5.1); TOTAL PROTEIN 7.1 GM/DL (6.4-8.2)
== END ==
LOC: M ONCR 13:38
PROVIDERS: ATTEND General Practice
DX: C78.7 Secondary malignant neoplasm of liver and intrahepatic bile duct (principal)

== ENCOUNTER → 2021-07-26 | Outpatient (CLI) | payer MEDICARE, BC ==
[~2021-07-26] MED LIST changes: +PROHANCE 279.3MG/ML 5ML VIAL As Ordered ONE
== END ==
LOC: M RAD 14:44
PROVIDERS: ATTEND General Practice
DX: C78.7 Secondary malignant neoplasm of liver and intrahepatic bile duct (principal)
CPT/HCPCS: 74183; A9576

== ENCOUNTER → 2021-08-02 | Outpatient (CLI) | payer MEDICARE, BC ==
[~2021-08-02] MED LIST changes: -PROHANCE 279.3MG/ML 5ML VIAL As Ordered ONE
== END ==
LOC: M ONCR 14:36
PROVIDERS: ATTEND General Practice
DX: C78.4 Secondary malignant neoplasm of small intestine (principal); C34.12 Malignant neoplasm of upper lobe, left bronchus or lung; Z79.899 Other long term (current) drug therapy; Z92.3 Personal history of irradiation

== ENCOUNTER → 2021-08-11 | Outpatient (CLI) | payer MEDICARE, BC ==
[~2021-08-11] MED LIST changes: +ISOVUE-370 76% 100ML VIAL As Ordered ONE
== END ==
LOC: M RAD 09:14
PROVIDERS: ATTEND Internal Medicine Hematology & Oncology
DX: C34.80 Malignant neoplasm of overlapping sites of unspecified bronchus and lung (principal); K76.9 Liver disease, unspecified
CPT/HCPCS: 71260; Q9967

== ENCOUNTER → 2021-11-12 | Outpatient (CLI) | payer MEDICARE, BC ==
[~2021-11-12] MED LIST changes: -ISOVUE-370 76% 100ML VIAL As Ordered ONE
== END ==
LOC: M LABSMTC 09:17
PROVIDERS: ATTEND Internal Medicine Hematology & Oncology
DX: Z11.52 Encounter for screening for COVID-19 (principal); C34.80 Malignant neoplasm of overlapping sites of unspecified bronchus and lung

== ENCOUNTER → 2021-12-06 | Outpatient (CLI) | payer MEDICARE, BC | LOC: M ONCR 09:14 | PROVIDERS: ATTEND General Practice | DX: C34.12 Malignant neoplasm of upper lobe, left bronchus or lung (principal); C78.7 Secondary malignant neoplasm of liver and intrahepatic bile duct; Z79.899 Other long term (current) drug therapy; Z92.21 Personal history of antineoplastic chemotherapy; Z92.3 Personal history of irradiation; Z95.828 Presence of other vascular implants and grafts ==

== ENCOUNTER → 2022-01-09 | Outpatient (CLI) | payer MEDICARE, BC | LOC: M WHC 12:52 | PROVIDERS: ATTEND Internal Medicine | DX: R92.2 Inconclusive mammogram (principal); Z85.3 Personal history of malignant neoplasm of breast; Z92.21 Personal history of antineoplastic chemotherapy ==

== ENCOUNTER → 2022-01-19 | Outpatient (CLI) | payer MEDICARE, BC | LOC: M WHC 11:11 | PROVIDERS: ATTEND Internal Medicine | DX: R92.8 Other abnormal and inconclusive findings on diagnostic imaging of breast (principal) | CPT/HCPCS: 76642; 77065; G0279 ==

== ENCOUNTER → 2022-06-07 | Outpatient (CLI) | payer MEDICARE, BC | LOC: M ONCR 08:47 | PROVIDERS: ATTEND General Practice | DX: C34.12 Malignant neoplasm of upper lobe, left bronchus or lung (principal); C78.7 Secondary malignant neoplasm of liver and intrahepatic bile duct; Z63.4 Disappearance and death of family member; Z79.620 Long term (current) use of immunosuppressive biologic; Z79.899 Other long term (current) drug therapy; Z92.3 Personal history of irradiation ==

== ENCOUNTER → 2022-06-12 | Outpatient (REF) | payer MEDICARE, BC ==
[2022-06-12 18:00] LABS: ALBUMIN 3.4 G/DL (3.2-5.2); BILIRUBIN,TOTAL 0.3 MG/DL (0.3-1.2); CALCIUM LEVEL 8.5 MG/DL (8.3-10.6); CREATININE FOR GFR 1.05 MG/DL (0.55-1.30); GLOMERULAR FILTRATION RATE 55.8 (>45); POTASSIUM SERUM 4.3 MMOL/L (3.5-5.1); TOTAL PROTEIN 6.4 G/DL (5.7-8.2)
== END ==
LOC: M LABWUC 16:27
PROVIDERS: ATTEND General Practice
DX: C78.7 Secondary malignant neoplasm of liver and intrahepatic bile duct (principal)

== ENCOUNTER → 2022-12-14 | Outpatient (CLI) | payer MEDICARE, BC | LOC: M ONCR 10:28 | PROVIDERS: ATTEND General Practice | DX: C78.7 Secondary malignant neoplasm of liver and intrahepatic bile duct (principal); C34.91 Malignant neoplasm of unspecified part of right bronchus or lung; C34.92 Malignant neoplasm of unspecified part of left bronchus or lung; Z71.2 Person consulting for explanation of examination or test findings; Z79.899 Other long term (current) drug therapy; Z92.3 Personal history of irradiation ==

== ENCOUNTER → 2023-01-10 | Outpatient (CLI) | payer MEDICARE, BC | LOC: M WHC 07:26 | PROVIDERS: ATTEND Internal Medicine | DX: Z12.31 Encounter for screening mammogram for malignant neoplasm of breast (principal); M85.89 Other specified disorders of bone density and structure, multiple sites ==

== ENCOUNTER → 2023-01-22 | Outpatient (REF) | payer MEDICARE, BC | LOC: M LAB REF 17:55 | PROVIDERS: ATTEND Otolaryngology | DX: H60.8X2 Other otitis externa, left ear (principal) ==

== ENCOUNTER → 2023-03-15 | Outpatient (CLI) | payer MEDICARE, BC ==
[2023-03-15 13:49] LABS: ALBUMIN 3.3 G/DL (3.2-5.2); BILIRUBIN,TOTAL 0.3 MG/DL (0.3-1.2); CALCIUM LEVEL 8.7 MG/DL (8.3-10.6); CREATININE FOR GFR 1.18 MG/DL (0.55-1.30); GLOMERULAR FILTRATION RATE 48.6 (>45); POTASSIUM SERUM 4.2 MMOL/L (3.5-5.1); TOTAL PROTEIN 6.3 G/DL (5.7-8.2)
== END ==
LOC: M LAB 12:48
PROVIDERS: ATTEND Psychiatry & Neurology Neurology
DX: I63.30 Cerebral infarction due to thrombosis of unspecified cerebral artery (principal)

== ENCOUNTER → 2023-03-19 | Outpatient (CLI) | payer MEDICARE, BC ==
[~2023-03-19] MED LIST changes: +ISOVUE-370 76% 100ML VIAL As Ordered ONE
== END ==
LOC: M RAD 12:46
PROVIDERS: ATTEND Psychiatry & Neurology Neurology
DX: I63.30 Cerebral infarction due to thrombosis of unspecified cerebral artery (principal)
CPT/HCPCS: 70496; 70498; Q9967

== ENCOUNTER 2023-03-24 12:14 | Observation (INO) | payer MEDICARE, BC ==
[~2023-03-24] VITALS: Ht 167.6 cm; Wt 68.9 kg
[~2023-03-24 12:14] MED LIST changes: -ISOVUE-370 76% 100ML VIAL As Ordered ONE
[2023-03-24 12:42] LABS: HEMATOCRIT 36.4 % (36.0-47.0); HEMOGLOBIN 12.1 g/dl (12.0-15.5); MEAN CORPUSCULAR HEMOGLOBIN 36.1 pg (27.0-33.0); MEAN CORPUSCULAR HGB CONC 33.2 g/dl (32.0-36.5); MEAN CORPUSCULAR VOLUME 108.7 fl (80.0-96.0); PLATELET COUNT, AUTOMATED 277 10^3/uL (150-450); RED BLOOD COUNT 3.35 10^6/uL (4.00-5.40)
[2023-03-24] MEDS ORDERED: ENTR200C PO (12:46)
[2023-03-24] MEDS ORDERED: FOLI1TAB11 PO (12:47)
[2023-03-24] MEDS ORDERED: NS 500 ML IV ONE ×2 (13:05→14:25)
[2023-03-24 13:18] LABS: CK-MB VALUE MASS < 1.0 NG/ML (<3.6)
[2023-03-24 13:21] LABS: BLOOD UREA NITROGEN 26 MG/DL (9-23); CALCIUM LEVEL 8.7 MG/DL (8.3-10.6); CARBON DIOXIDE LEVEL 29 MMOL/L (20-31); CHLORIDE LEVEL 102 MMOL/L (98-107); CREATININE FOR GFR 1.26 MG/DL (0.55-1.30); GLOMERULAR FILTRATION RATE 45.1 (>45); GLUCOSE, FASTING 132 MG/DL (74-106); MAGNESIUM LEVEL 1.8 MG/DL (1.8-2.4); POTASSIUM SERUM 4.3 MMOL/L (3.5-5.1); SODIUM LEVEL 138 MMOL/L (136-145)
[2023-03-24 13:23] LABS: CPK CREATINE PHOSPHOKINASE 29 U/L (34-145); FREE T4 1.29 NG/DL (0.89-1.76); MB/CK RELATIVE INDEX 3.44 (< OR =4); RSV AMPLIFICATION NEGATIVE (NEGATIVE); THYROID STIMULATING HORMONE 2.434 uIU/ML (0.55-4.78)
[2023-03-24 13:26] LABS: ATYPICAL LYMPH 5 % (0-5); LYMPHOCYTES 3 % (16-44); NEUTROPHILS 92 % (28-66)
[2023-03-24 13:27] LABS: PLATELET ESTIMATE NORMAL (NORMAL)
[2023-03-24] MEDS ORDERED: NS 1,000 ML IV SCH (15:05)
[2023-03-24] MEDS ORDERED: ONDA-83 PO (17:02)
[2023-03-24] MEDS ORDERED: ASPI-226 PO (17:05)
[2023-03-24] MEDS ORDERED: XGEVINJ SC (17:05)
[2023-03-24] MEDS ORDERED: HOME MED LIST COMPLETE! XX SCH (17:10)
[2023-03-24] MEDS ORDERED: ONDANSETRON 4MG 2ML VIAL IV PRN (18:05)
[2023-03-24 20:41] VITALS: BP 106/72; TEMP 98.6; O2SAT 94
[2023-03-24] MEDS: CALCIUM/VITAMIN D 500 MG TAB PO SCH (21:19)
[2023-03-25 04:15] VITALS: BP 92/58; TEMP 97.2; O2SAT 100
[2023-03-25 04:28] VITALS: BP 108/78
[2023-03-25 05:55] LABS: HEMATOCRIT 31.1 % (36.0-47.0); HEMOGLOBIN 10.2 g/dl (12.0-15.5); MEAN CORPUSCULAR HEMOGLOBIN 35.8 pg (27.0-33.0); MEAN CORPUSCULAR HGB CONC 32.8 g/dl (32.0-36.5); MEAN CORPUSCULAR VOLUME 109.1 fl (80.0-96.0); PLATELET COUNT, AUTOMATED 231 10^3/uL (150-450); RED BLOOD COUNT 2.85 10^6/uL (4.00-5.40); WHITE BLOOD COUNT 2.9 10^3/uL (4.0-10.0)
[2023-03-25 06:09] LABS: ALBUMIN 2.8 G/DL (3.2-5.2); BILIRUBIN,TOTAL 0.7 MG/DL (0.3-1.2); CALCIUM LEVEL 7.8 MG/DL (8.3-10.6); CREATININE FOR GFR 1.05 MG/DL (0.55-1.30); GLOMERULAR FILTRATION RATE 55.7 (>45); POTASSIUM SERUM 4.2 MMOL/L (3.5-5.1); TOTAL PROTEIN 5.3 G/DL (5.7-8.2)
[2023-03-25] MEDS: CALCIUM/VITAMIN D 500 MG TAB PO SCH (08:03)
[2023-03-25] MEDS ORDERED: ASPIRIN 81MG ENTERIC TABLET PO SCH (09:00)
[2023-03-25] MEDS ORDERED: CALCIUM CARBONATE 500 MG CHEW U/D PO SCH (09:00)
[2023-03-25] MEDS ORDERED: FOLIC ACID 1MG TAB PO SCH (09:00)
== END 2023-03-25 12:20 | disposition home or self-care (01) ==
LOC: M ED 12:14 → M ED INP 12:15 → ENRESERV 19:48 → M MSPAV 20:41
PROVIDERS: ADMIT Internal Medicine Nephrology; ATTEND Internal Medicine Nephrology
DX: I95.1 Orthostatic hypotension (principal); E86.0 Dehydration; D72.819 Decreased white blood cell count, unspecified; C34.90 Malignant neoplasm of unspecified part of unspecified bronchus or lung; C79.31 Secondary malignant neoplasm of brain; C78.7 Secondary malignant neoplasm of liver and intrahepatic bile duct; C79.51 Secondary malignant neoplasm of bone; K44.9 Diaphragmatic hernia without obstruction or gangrene; N18.30 Chronic kidney disease, stage 3 unspecified; R31.9 Hematuria, unspecified; D41.4 Neoplasm of uncertain behavior of bladder; Z80.1 Family history of malignant neoplasm of trachea, bronchus and lung; Z82.49 Family history of ischemic heart disease and other diseases of the circulatory system; Z82.0 Family history of epilepsy and other diseases of the nervous system; Z79.899 Other long term (current) drug therapy; Z79.82 Long term (current) use of aspirin
CPT/HCPCS: 36415; 80048; 80053; 82550; 82553; 83605; 83735; 84439; 84443; 84484; 85025; 85027; 87631; 93005; 93041; 94760; 96360; 96361; 99285; G0378

== ENCOUNTER 2023-03-27 11:38 | Inpatient (IN) | payer MEDICARE, BC ==
[~2023-03-27] VITALS: Ht 167.6 cm; Wt 70.1 kg
[~2023-03-27 11:38] MED LIST changes: +ASPI-226 PO; +ENTR200C PO; +FOLI1TAB11 PO; +XGEVINJ SC
[2023-03-27] MEDS ORDERED: NS IV STA (12:56)
[2023-03-27] MEDS ORDERED: PIPERACILLIN/TAZOBACTAM SOD 4.5 GM in D5W MINI-BAG PLUS 50 ML IV ONE (13:00)
[2023-03-27] MEDS ORDERED: ACETAMINOPHEN TAB 650MG DOSE (2X325MG) PO ONE (13:00)
[2023-03-27 13:09] LABS: VENOUS BASE EXCESS -0.9 (-2.0-2.0); VENOUS HCO3 23.5 MMOL/L (23.0-27.0); VENOUS O2 SATURATION 89.4 % (60.0-80.0); VENOUS PARTIAL PRESSURE CO2 37.8 mmHg (38.0-50.0); VENOUS PARTIAL PRESSURE O2 58.5 mmHg (30.0-50.0); VENOUS PH 7.411 UNITS (7.330-7.430); VENOUS STANDARD HCO3 23.6 MMOL/L; VENOUS TOTAL CO2 24.6 MMOL/L (24.0-28.0)
[2023-03-27 13:17] LABS: BASO % 1.4 % (0.0-1.0); HEMATOCRIT 30.9 % (36.0-47.0); HEMOGLOBIN 10.4 g/dl (12.0-15.5); LYMPH # 0.2 10^3/uL (1.5-5.0); LYMPH % 32.4 % (24.0-44.0); MEAN CORPUSCULAR HEMOGLOBIN 35.7 pg (27.0-33.0); MEAN CORPUSCULAR HGB CONC 33.7 g/dl (32.0-36.5); MEAN CORPUSCULAR VOLUME 106.2 fl (80.0-96.0); MONO # 0.2 10^3/uL (0.0-0.8); MONO % 25.7 % (2.0-8.0); NEUTROPHILS % 32.4 % (36.0-66.0); PLATELET COUNT, AUTOMATED 121 10^3/uL (150-450); RED BLOOD COUNT 2.91 10^6/uL (4.00-5.40)
[2023-03-27 13:20] LABS: WHITE BLOOD COUNT 0.7 10^3/uL (4.0-10.0)
[2023-03-27 13:21] LABS: NEUTROPHILS # 0.2 10^3/uL (1.5-8.5)
[2023-03-27 13:39] LABS: AMYLASE 50 U/L (30-118)
[2023-03-27 13:40] LABS: ALBUMIN 2.9 G/DL (3.2-5.2); ALKALINE PHOSPHATASE 36 U/L (46-116); ALT/SGPT 25 U/L (7.0-40); AST/SGOT 32 U/L (<34); BILIRUBIN,DIRECT 0.2 MG/DL (<0.4); BILIRUBIN,TOTAL 0.5 MG/DL (0.3-1.2); BLOOD UREA NITROGEN 21 MG/DL (9-23); CALCIUM LEVEL 6.9 MG/DL (8.3-10.6); CARBON DIOXIDE LEVEL 26 MMOL/L (20-31); CHLORIDE LEVEL 101 MMOL/L (98-107); CK-MB VALUE MASS < 1.0 NG/ML (<3.6); CREATININE FOR GFR 1.13 MG/DL (0.55-1.30); GLOMERULAR FILTRATION RATE 51.1 (>45); GLUCOSE, FASTING 149 MG/DL (74-106); POTASSIUM SERUM 3.9 MMOL/L (3.5-5.1); SODIUM LEVEL 134 MMOL/L (136-145); TOTAL PROTEIN 5.5 G/DL (5.7-8.2)
[2023-03-27 13:51] LABS: CPK CREATINE PHOSPHOKINASE 205 U/L (34-145); MB/CK RELATIVE INDEX 0.48 (< OR =4)
[2023-03-27] MEDS ORDERED: ISOVUE-370 76% 100ML VIAL As Ordered ONE (14:15)
[2023-03-27 16:02] LABS: INR 1.34; PROTHROMBIN TIME 16.1 SECONDS (12.5-14.5)
[2023-03-27 16:03] LABS: PARTIAL THROMBOPLASTIN TIME 29.7 SECONDS (24.8-34.2)
[2023-03-27] MEDS ORDERED: ACETAMINOPHEN TAB 650MG DOSE (2X325MG) PO PRN (17:00)
[2023-03-27] MEDS ORDERED: MOM 30ML SUSPENSION UDC PO PRN (17:00)
[2023-03-27] MEDS ORDERED: MAALOX 30 ML SUSP *UDC PO PRN (17:00)
[2023-03-27] MEDS ORDERED: MED REC IN PROGRESS XX SCH (17:05)
[2023-03-27 17:39] LABS: MAGNESIUM LEVEL 1.6 MG/DL (1.8-2.4)
[2023-03-27 18:13] VITALS: BP 117/58; TEMP 98.1; O2SAT 96
[2023-03-27] MEDS ORDERED: HOME MED LIST COMPLETE! XX SCH (19:00)
[2023-03-27 20:05] VITALS: BP 120/69; TEMP 97.5; O2SAT 96
[2023-03-27] MEDS: NS 1,000 ML IV SCH (20:54)
[2023-03-27] MEDS: ENOXAPARIN 40MG/0.4ML SYRINGE (J1650 PER 10MG) SC SCH (20:54)
[2023-03-27] MEDS: PIPERACILLIN/TAZOBACTAM SOD 4.5 GM in D5W MINI-BAG PLUS 50 ML IV SCH (20:55)
[2023-03-27] MEDS: FILGRASTIM 480 MCG/0.8 ML SYRINGE **SC ADMINISTRATION ONLY SC SCH (22:24)
[2023-03-27 22:44] LABS: AMORPHOUS SEDIMENT SMALL (NEGATIVE); APPEARANCE, URINE CLOUDY (CLEAR); BACTERIA, URINE AUTO 1+ (NEGATIVE); BILIRUBIN, URINE AUTO NEGATIVE (NEGATIVE); BLOOD, URINE BLOOD 2+ (NEGATIVE); COLOR, URINE YELLOW (YELLOW); GLUCOSE, URINE (UA) AUTO NEGATIVE (NEGATIVE); KETONE, URINE AUTO NEGATIVE (NEGATIVE); LEUKOCYTE ESTERASE, URINE AUTO 3+ (NEGATIVE); NITRITE, URINE AUTO NEGATIVE (NEGATIVE); PROTEIN, URINE AUTO NEGATIVE (NEGATIVE); RBC, URINE AUTO 5 /HPF (0-3); SPECIFIC GRAVITY URINE AUTO 1.031 (1.002-1.035); SQUAMOUS EPITHELIAL CELL UR AU 0 /HPF (0-6); UROBILINOGEN, URINE AUTO 0.2 mg/dL (0.0-2.0); WBC, URINE AUTO 9 /HPF (0-3)
[2023-03-28] MEDS: PIPERACILLIN/TAZOBACTAM SOD 4.5 GM in D5W MINI-BAG PLUS 50 ML IV SCH ×4 (02:55→20:47)
[2023-03-28 05:40] VITALS: BP 107/59; TEMP 97.5; O2SAT 97
[2023-03-28 07:00] LABS: HEMATOCRIT 29.6 % (36.0-47.0); HEMOGLOBIN 9.9 g/dl (12.0-15.5); MEAN CORPUSCULAR HEMOGLOBIN 35.9 pg (27.0-33.0); MEAN CORPUSCULAR HGB CONC 33.4 g/dl (32.0-36.5); MEAN CORPUSCULAR VOLUME 107.2 fl (80.0-96.0); RED BLOOD COUNT 2.76 10^6/uL (4.00-5.40); WHITE BLOOD COUNT 1.7 10^3/uL (4.0-10.0)
[2023-03-28 07:09] LABS: PLATELET COUNT, AUTOMATED 84 10^3/uL (150-450)
[2023-03-28 07:46] LABS: CALCIUM LEVEL 5.8 MG/DL (8.3-10.6); GLOMERULAR FILTRATION RATE 58.9 (>45); MAGNESIUM LEVEL 1.8 MG/DL (1.8-2.4); POTASSIUM SERUM 3.1 MMOL/L (3.5-5.1)
[2023-03-28] MEDS ORDERED: MAG SULF 1GM/100ML (MAG RUN) 1 GM in IV 1 EA IV SCH (08:00)
[2023-03-28] MEDS ORDERED: CALCIUM GLUCONATE 1,000 MG in D5W MINI-BAG PLUS 100 ML IV ONE (08:00)
[2023-03-28 08:01] LABS: ATYPICAL LYMPH 1 % (0-5); EOSINOPHILS 2 % (0-3); LYMPHOCYTES 36 % (16-44); METAMYELOCYTES 2 % (0-0); MONOCYTES 10 % (0-5); NEUTROPHILS 45 % (28-66); PLATELET ESTIMATE DECREASED (NORMAL)
[2023-03-28 08:02] LABS: POLYCHROMASIA 1+
[2023-03-28] MEDS: NS 1,000 ML IV SCH ×2 (08:46→14:10)
[2023-03-28] MEDS: CALCITRIOL 0.25 MCG CAP (S0169) PO SCH (08:50)
[2023-03-28 09:04] LABS: TOTAL 25(OH) VITAMIN D 35.2 NG/ML (20.0-100.0)
[2023-03-28] MEDS: KCL 10MEQ/100ML SWI (KRUN) 10 MEQ in IV 1 EA IV SCH ×2 (17:33→18:38)
[2023-03-28] MEDS ORDERED: ONDANSETRON 4MG 2ML VIAL IV PRN (18:55)
[2023-03-28 19:50] VITALS: BP 108/98; TEMP 97.7; O2SAT 98
[2023-03-28] MEDS: FILGRASTIM 480 MCG/0.8 ML SYRINGE **SC ADMINISTRATION ONLY SC SCH (21:22)
[2023-03-28] MEDS: ENOXAPARIN 40MG/0.4ML SYRINGE (J1650 PER 10MG) SC SCH (21:22)
[2023-03-29] MEDS: NS 1,000 ML IV SCH ×3 (02:16→20:27)
[2023-03-29] MEDS: PIPERACILLIN/TAZOBACTAM SOD 4.5 GM in D5W MINI-BAG PLUS 50 ML IV SCH ×4 (02:16→20:27)
[2023-03-29 05:43] VITALS: BP 103/58; TEMP 97.2; O2SAT 96
[2023-03-29 06:18] LABS: HEMATOCRIT 25.7 % (36.0-47.0); HEMOGLOBIN 8.6 g/dl (12.0-15.5); MEAN CORPUSCULAR HEMOGLOBIN 36.1 pg (27.0-33.0); MEAN CORPUSCULAR HGB CONC 33.5 g/dl (32.0-36.5); RED BLOOD COUNT 2.38 10^6/uL (4.00-5.40); WHITE BLOOD COUNT 6.1 10^3/uL (4.0-10.0)
[2023-03-29 06:24] LABS: PLATELET COUNT, AUTOMATED 64 10^3/uL (150-450)
[2023-03-29] MEDS ORDERED: CALCIUM CHLORIDE 10% 1 GM in D5W 100 ML IV ONE (06:40)
[2023-03-29 06:45] LABS: BLOOD UREA NITROGEN 8 MG/DL (9-23); CALCIUM LEVEL 5.6 MG/DL (8.3-10.6); CARBON DIOXIDE LEVEL 23 MMOL/L (20-31); CHLORIDE LEVEL 109 MMOL/L (98-107); CREATININE FOR GFR 0.92 MG/DL (0.55-1.30); GLOMERULAR FILTRATION RATE > 60.0 (>45); GLUCOSE, FASTING 85 MG/DL (74-106); MAGNESIUM LEVEL 1.6 MG/DL (1.8-2.4); POTASSIUM SERUM 2.9 MMOL/L (3.5-5.1); SODIUM LEVEL 142 MMOL/L (136-145)
[2023-03-29 06:46] LABS: ATYPICAL LYMPH 5 % (0-5); EOSINOPHILS 3 % (0-3); LYMPHOCYTES 16 % (16-44); MONOCYTES 13 % (0-5); NEUTROPHILS 60 % (28-66); PLATELET ESTIMATE MARKED DECREASE (NORMAL)
[2023-03-29 06:51] LABS: DOHLE BODIES 1+; POLYCHROMASIA 1+
[2023-03-29 06:52] LABS: ANISOCYTOSIS 1+
[2023-03-29] MEDS: KCL 10MEQ/100ML SWI (KRUN) 10 MEQ in IV 1 EA IV SCH ×4 (07:58→15:55)
[2023-03-29] MEDS: CALCITRIOL 0.25 MCG CAP (S0169) PO SCH (08:02)
[2023-03-29] MEDS: CALCIUM CARBONATE 500 MG CHEW U/D PO SCH ×2 (08:02→20:27)
[2023-03-29] MEDS: POTASSIUM CHLORIDE 10MEQ SR TABLET PO SCH ×2 (08:02→20:27)
[2023-03-29] MEDS: FOLIC ACID 1MG TAB PO SCH (08:03)
[2023-03-29] MEDS ORDERED: CALCIUM GLUCONATE 1,000 MG in D5W MINI-BAG PLUS 100 ML IV ONE ×2 (11:00→16:00)
[2023-03-29] MEDS: CALCIUM GLUCONATE 1,000 MG in D5W MINI-BAG PLUS 100 ML IV SCH ×2 (12:00→12:12)
[2023-03-29 14:03] VITALS: BP 104/58; TEMP 97.9; O2SAT 98
[2023-03-29 18:50] LABS: BLOOD UREA NITROGEN < 5 MG/DL (9-23); CALCIUM LEVEL 6.4 MG/DL (8.3-10.6); CARBON DIOXIDE LEVEL 24 MMOL/L (20-31); CHLORIDE LEVEL 111 MMOL/L (98-107); CREATININE FOR GFR 0.81 MG/DL (0.55-1.30); GLOMERULAR FILTRATION RATE > 60.0 (>45); GLUCOSE, FASTING 117 MG/DL (74-106); SODIUM LEVEL 141 MMOL/L (136-145)
[2023-03-29 21:21] VITALS: BP 120/66; TEMP 97.5; O2SAT 96
[2023-03-30] MEDS: PIPERACILLIN/TAZOBACTAM SOD 4.5 GM in D5W MINI-BAG PLUS 50 ML IV SCH (02:30)
[2023-03-30 05:53] VITALS: BP 115/66; TEMP 98.4; O2SAT 94
[2023-03-30 07:18] LABS: HEMATOCRIT 26.3 % (36.0-47.0); HEMOGLOBIN 8.5 g/dl (12.0-15.5); MEAN CORPUSCULAR HEMOGLOBIN 34.7 pg (27.0-33.0); MEAN CORPUSCULAR HGB CONC 32.3 g/dl (32.0-36.5); MEAN CORPUSCULAR VOLUME 107.3 fl (80.0-96.0); RED BLOOD COUNT 2.45 10^6/uL (4.00-5.40)
[2023-03-30 07:27] LABS: PLATELET COUNT, AUTOMATED 62 10^3/uL (150-450)
[2023-03-30 07:53] LABS: ATYPICAL LYMPH 4 % (0-5); DOHLE BODIES 2+; LYMPHOCYTES 10 % (16-44); MONOCYTES 10 % (0-5); NEUTROPHILS 74 % (28-66)
[2023-03-30 07:54] LABS: PLATELET ESTIMATE DECREASED (NORMAL)
[2023-03-30] MEDS: CALCIUM CARBONATE 500 MG CHEW U/D PO SCH (08:05)
[2023-03-30] MEDS: FOLIC ACID 1MG TAB PO SCH (08:05)
[2023-03-30] MEDS: CALCITRIOL 0.25 MCG CAP (S0169) PO SCH (08:05)
[2023-03-30] MEDS: POTASSIUM CHLORIDE 10MEQ SR TABLET PO SCH (08:05)
[2023-03-30 08:24] LABS: BLOOD UREA NITROGEN < 5 MG/DL (9-23); CALCIUM LEVEL 6.4 MG/DL (8.3-10.6); CARBON DIOXIDE LEVEL 24 MMOL/L (20-31); CHLORIDE LEVEL 113 MMOL/L (98-107); CREATININE FOR GFR 0.76 MG/DL (0.55-1.30); GLOMERULAR FILTRATION RATE > 60.0 (>45); GLUCOSE, FASTING 93 MG/DL (74-106); MAGNESIUM LEVEL 1.9 MG/DL (1.8-2.4); POTASSIUM SERUM 4.1 MMOL/L (3.5-5.1); SODIUM LEVEL 142 MMOL/L (136-145)
[2023-03-30] MEDS ORDERED: CEFD1CAP9 PO (08:29)
[2023-03-30] MEDS ORDERED: FAMOTIDINE 20 MG TAB PO SCH (09:00)
== END 2023-03-30 14:15 | disposition home or self-care (01) | DRG 871 ==
LOC: M ED 11:38 → M ED INP 16:58 → M MS5PR 18:25
PROVIDERS: ADMIT Student in an Organized Health Care Education/Training Program; ATTEND Student in an Organized Health Care Education/Training Program
DX: A41.9 Sepsis, unspecified organism (principal); D61.810 Antineoplastic chemotherapy induced pancytopenia; C79.51 Secondary malignant neoplasm of bone; C79.31 Secondary malignant neoplasm of brain; C78.7 Secondary malignant neoplasm of liver and intrahepatic bile duct; A08.11 Acute gastroenteropathy due to Norwalk agent; C34.90 Malignant neoplasm of unspecified part of unspecified bronchus or lung; E87.6 Hypokalemia; K44.9 Diaphragmatic hernia without obstruction or gangrene; E83.51 Hypocalcemia; N18.30 Chronic kidney disease, stage 3 unspecified; D70.9 Neutropenia, unspecified; D69.6 Thrombocytopenia, unspecified; Z79.69 Long term (current) use of other immunomodulators and immunosuppressants; Z79.82 Long term (current) use of aspirin; Z79.899 Other long term (current) drug therapy; Z95.828 Presence of other vascular implants and grafts

== ENCOUNTER → 2023-06-04 | Outpatient (CLI) | payer MEDICARE, BC ==
[~2023-06-04] MED LIST changes: +CEFD1CAP9 PO; +PROHANCE 279.3MG/ML 15ML VIAL As Ordered ONE
== END ==
LOC: M RAD 14:51
PROVIDERS: ATTEND Internal Medicine Hematology & Oncology
DX: C34.90 Malignant neoplasm of unspecified part of unspecified bronchus or lung (principal); C79.31 Secondary malignant neoplasm of brain; C34.80 Malignant neoplasm of overlapping sites of unspecified bronchus and lung
CPT/HCPCS: 70553; A9576

== ENCOUNTER → 2023-06-14 | Outpatient (CLI) | payer MEDICARE, BC ==
[~2023-06-14] MED LIST changes: -PROHANCE 279.3MG/ML 15ML VIAL As Ordered ONE; +TOBRSUS39 OP
== END ==
LOC: M ONCR 11:14
PROVIDERS: ATTEND General Practice
DX: C78.7 Secondary malignant neoplasm of liver and intrahepatic bile duct (principal); Z85.118 Personal history of other malignant neoplasm of bronchus and lung; Z71.2 Person consulting for explanation of examination or test findings; Z79.82 Long term (current) use of aspirin; Z79.899 Other long term (current) drug therapy; Z92.21 Personal history of antineoplastic chemotherapy; Z92.3 Personal history of irradiation

== ENCOUNTER → 2023-07-25 | Outpatient (CLI) | payer MEDICARE, BC | LOC: M CARPUL 08:12 | PROVIDERS: ATTEND Internal Medicine | DX: R06.00 Dyspnea, unspecified (principal) ==

== ENCOUNTER 2023-12-25 10:53 | Emergency (ER) | payer MEDICARE, BC ==
[~2023-12-25] VITALS: Ht 167.6 cm; Wt 62.1 kg
[2023-12-25] MEDS ORDERED: PROP10TA56 PO (11:05)
[2023-12-25] MEDS ORDERED: MAGN64TASA PO (11:05)
[2023-12-25] MEDS ORDERED: DROX100C PO (11:05)
[2023-12-25] MEDS ORDERED: OMEP-173 PO (11:05)
[2023-12-25 12:09] LABS: BASO % 0.2 % (0.0-1.0); EOS % 0.7 % (0.0-3.0); HEMATOCRIT 33.5 % (36.0-47.0); HEMOGLOBIN 10.8 g/dl (12.0-15.5); LYMPH # 1.1 10^3/uL (1.5-5.0); LYMPH % 18.4 % (24.0-44.0); MEAN CORPUSCULAR HEMOGLOBIN 32.3 pg (27.0-33.0); MEAN CORPUSCULAR HGB CONC 32.2 g/dl (32.0-36.5); MEAN CORPUSCULAR VOLUME 100.3 fl (80.0-96.0); MONO # 0.8 10^3/uL (0.0-0.8); MONO % 13.6 % (2.0-8.0); NEUTROPHILS % 66.6 % (36.0-66.0); PLATELET COUNT, AUTOMATED 357 10^3/uL (150-450); RED BLOOD COUNT 3.34 10^6/uL (4.00-5.40)
[2023-12-25 12:34] LABS: ALBUMIN 2.5 G/DL (3.2-5.2); BILIRUBIN,DIRECT 0.1 MG/DL (<0.4); BILIRUBIN,TOTAL 0.3 MG/DL (0.3-1.2); CALCIUM LEVEL 7.7 MG/DL (8.3-10.6); CREATININE FOR GFR 1.26 MG/DL (0.55-1.30); POTASSIUM SERUM 4.4 MMOL/L (3.5-5.1); TOTAL PROTEIN 5.7 G/DL (5.7-8.2)
[2023-12-25] MEDS: NS 1,000 ML IV ONE (14:45)
[2023-12-25] MEDS: NS 500 ML IV ONE (15:58)
[2023-12-25 17:23] LABS: APPEARANCE, URINE HAZY (CLEAR); BACTERIA, URINE AUTO 1+ (NEGATIVE); BILIRUBIN, URINE AUTO NEGATIVE (NEGATIVE); BLOOD, URINE BLOOD NEGATIVE (NEGATIVE); COLOR, URINE YELLOW (YELLOW); GLUCOSE, URINE (UA) AUTO NEGATIVE (NEGATIVE); KETONE, URINE AUTO 1+ mg/dL (NEGATIVE); LEUKOCYTE ESTERASE, URINE AUTO 1+ (NEGATIVE); MUCUS, URINE SMALL (NEGATIVE); NITRITE, URINE AUTO NEGATIVE (NEGATIVE); PROTEIN, URINE AUTO NEGATIVE (NEGATIVE); RBC, URINE AUTO 1 /HPF (0-3); SPECIFIC GRAVITY URINE AUTO 1.009 (1.002-1.035); SQUAMOUS EPITHELIAL CELL UR AU 0 /HPF (0-6); UROBILINOGEN, URINE AUTO 0.2 mg/dL (0.0-2.0); WBC, URINE AUTO 6 /HPF (0-3)
[2023-12-25 17:51] LABS: CALCIUM LEVEL 6.9 MG/DL (8.3-10.6); CREATININE FOR GFR 1.11 MG/DL (0.55-1.30); POTASSIUM SERUM 4.4 MMOL/L (3.5-5.1)
[2023-12-25 18:15] VITALS: BP 122/63; TEMP 98; O2SAT 98
[2023-12-25] MEDS ORDERED: VANC1CAP6 PO (18:15)
[2023-12-25] MEDS: VANCOMYCIN 125MG CAPSULE PO ONE (18:48)
== END 2023-12-25 19:00 | disposition home or self-care (01) ==
LOC: M ED 10:53
DX: A04.72 Enterocolitis due to Clostridium difficile, not specified as recurrent (principal); G90.A Postural orthostatic tachycardia syndrome [POTS]; I95.9 Hypotension, unspecified; C34.90 Malignant neoplasm of unspecified part of unspecified bronchus or lung; Z86.73 Personal history of transient ischemic attack (TIA), and cerebral infarction without residual deficits; N18.30 Chronic kidney disease, stage 3 unspecified; Z20.822 Contact with and (suspected) exposure to COVID-19; Z79.82 Long term (current) use of aspirin; Z79.899 Other long term (current) drug therapy

== ENCOUNTER 2023-12-27 11:26 | Inpatient (IN) | payer MEDICARE, BC ==
[~2023-12-27] VITALS: Ht 167.6 cm; Wt 58.8 kg
[~2023-12-27 11:26] MED LIST changes: +DROX100C PO; +MAGN64TASA PO; +OMEP-173 PO; +PROP10TA56 PO; +VANC1CAP6 PO
[2023-12-27 12:45] LABS: BASO % 0.3 % (0.0-1.0); EOS # 0.1 10^3/uL (0.0-0.5); EOS % 0.8 % (0.0-3.0); HEMATOCRIT 33.8 % (36.0-47.0); HEMOGLOBIN 10.7 g/dl (12.0-15.5); LYMPH # 1.3 10^3/uL (1.5-5.0); MEAN CORPUSCULAR HEMOGLOBIN 32.2 pg (27.0-33.0); MEAN CORPUSCULAR HGB CONC 31.7 g/dl (32.0-36.5); MEAN CORPUSCULAR VOLUME 101.8 fl (80.0-96.0); MONO % 15.6 % (2.0-8.0); NEUTROPHILS # 4.2 10^3/uL (1.5-8.5); NEUTROPHILS % 63.4 % (36.0-66.0); PLATELET COUNT, AUTOMATED 312 10^3/uL (150-450); RED BLOOD COUNT 3.32 10^6/uL (4.00-5.40); WHITE BLOOD COUNT 6.6 10^3/uL (4.0-10.0)
[2023-12-27 13:05] LABS: ALBUMIN 2.4 G/DL (3.2-5.2); ALKALINE PHOSPHATASE 58 U/L (46-116); ALT/SGPT 14 U/L (7.0-40); AST/SGOT 17 U/L (<34); BILIRUBIN,TOTAL 0.3 MG/DL (0.3-1.2); BLOOD UREA NITROGEN 15 MG/DL (9-23); CALCIUM LEVEL 7.7 MG/DL (8.3-10.6); CARBON DIOXIDE LEVEL 18 MMOL/L (20-31); CHLORIDE LEVEL 108 MMOL/L (98-107); CREATININE FOR GFR 1.64 MG/DL (0.55-1.30); GLOMERULAR FILTRATION RATE 33.2 (>45); GLUCOSE, FASTING 79 MG/DL (74-106); MAGNESIUM LEVEL 1.9 MG/DL (1.8-2.4); POTASSIUM SERUM 4.1 MMOL/L (3.5-5.1); SODIUM LEVEL 137 MMOL/L (136-145); TOTAL PROTEIN 5.5 G/DL (5.7-8.2)
[2023-12-27 13:07] LABS: FREE T4 1.22 NG/DL (0.89-1.76)
[2023-12-27] MEDS: NS 1,000 ML IV ONE (13:07)
[2023-12-27 13:08] LABS: THYROID STIMULATING HORMONE 1.857 uIU/ML (0.55-4.78)
[2023-12-27] MEDS: NS 500 ML IV ONE (14:30)
[2023-12-27] MEDS: NS 1,000 ML IV SCH (15:22)
[2023-12-27] MEDS ORDERED: SYST0.3G OU (15:50)
[2023-12-27] MEDS ORDERED: VANC125C12 PO (15:50)
[2023-12-27] MEDS ORDERED: SYST1SOL4 OU (15:50)
[2023-12-27] MEDS ORDERED: HOME MED LIST COMPLETE! XX SCH (15:50)
[2023-12-27] MEDS ORDERED: ESTR1CAP2 PO (15:50)
[2023-12-27 17:06] LABS: PROCALCITONIN <0.04 ng/ml
[2023-12-27] MEDS ORDERED: ACETAMINOPHEN TAB 650MG DOSE (2X325MG) PO PRN (18:35)
[2023-12-27 20:23] VITALS: BP 119/61; TEMP 98.1; O2SAT 99
[2023-12-27] MEDS ORDERED: HYPROMELLOSE 0.3% 150DROP/10G BTL OU SCH (21:00)
[2023-12-27] MEDS: CALCIUM CARBONATE 500 MG CHEW U/D PO SCH (21:45)
[2023-12-27] MEDS: MAGNESIUM GLUCONATE 500 MG TAB PO SCH (21:46)
[2023-12-27] MEDS: PROPRANOLOL 10 MG TAB PO SCH (21:46)
[2023-12-27] MEDS: FIDAXOMICIN 200 MG TAB (DIFICID) PO SCH (21:47)
[2023-12-28] VITALS (14 sets, daily range): BP systolic 71–116; BP diastolic 46–63; TEMP 96.6–97.9; O2SAT 94–98
[2023-12-28 07:07] LABS: HEMATOCRIT 31.7 % (36.0-47.0); HEMOGLOBIN 9.8 g/dl (12.0-15.5); MEAN CORPUSCULAR HEMOGLOBIN 32.1 pg (27.0-33.0); MEAN CORPUSCULAR HGB CONC 30.9 g/dl (32.0-36.5); MEAN CORPUSCULAR VOLUME 103.9 fl (80.0-96.0); PLATELET COUNT, AUTOMATED 282 10^3/uL (150-450); RED BLOOD COUNT 3.05 10^6/uL (4.00-5.40); WHITE BLOOD COUNT 6.5 10^3/uL (4.0-10.0)
[2023-12-28 07:31] LABS: ALBUMIN 1.9 G/DL (3.2-5.2); ALKALINE PHOSPHATASE 45 U/L (46-116); ALT/SGPT 14 U/L (7.0-40); AST/SGOT 36 U/L (<34); BILIRUBIN,TOTAL < 0.2 MG/DL (0.3-1.2); BLOOD UREA NITROGEN 12 MG/DL (9-23); CALCIUM LEVEL 6.6 MG/DL (8.3-10.6); CARBON DIOXIDE LEVEL 11 MMOL/L (20-31); CHLORIDE LEVEL 113 MMOL/L (98-107); CREATININE FOR GFR 1.33 MG/DL (0.55-1.30); GLOMERULAR FILTRATION RATE 42.2 (>45); GLUCOSE, FASTING 61 MG/DL (74-106); MAGNESIUM LEVEL 1.8 MG/DL (1.8-2.4); POTASSIUM SERUM 5.5 MMOL/L (3.5-5.1); SODIUM LEVEL 140 MMOL/L (136-145); TOTAL PROTEIN 4.7 G/DL (5.7-8.2)
[2023-12-28] MEDS ORDERED: GLUCAGON INJ 1MG VIAL SC PRN (07:40)
[2023-12-28] MEDS ORDERED: DEXTROSE 50% 50ML SYRINGE IV PRN (07:40)
[2023-12-28] MEDS ORDERED: GLUCOSE 4 GM CHEW PO PRN (07:40)
[2023-12-28] MEDS: FOLIC ACID 1MG TAB PO SCH (08:01)
[2023-12-28] MEDS: ASPIRIN 81MG ENTERIC TABLET PO SCH (08:01)
[2023-12-28] MEDS: OMEPRAZOLE 20MG CAP PO SCH (08:01)
[2023-12-28] MEDS: HEPARIN SOD (PORCINE) 5000UNITS/ML 1ML VIAL/SYRINGE SQ SCH (08:01)
[2023-12-28] MEDS: DEXTROSE 50% 50ML SYRINGE IV STA (08:03)
[2023-12-28 08:12] LABS: ATYPICAL LYMPH 3 % (0-5); EOSINOPHILS 1 % (0-3); LYMPHOCYTES 23 % (16-44); MONOCYTES 8 % (0-5); NEUTROPHILS 63 % (28-66); PLATELET ESTIMATE NORMAL (NORMAL)
[2023-12-28 08:14] LABS: CRENATED RBC 1+; PLATELET CLUMPS SMALL AMT
[2023-12-28] MEDS: ALBUTEROL SULFATE 2.5MG/0.5ML INH NEB SOLN NEB STA (08:22)
[2023-12-28] MEDS: SODIUM BICARBONATE 8.4% INJ 50ML SYRINGE IV STA (09:16)
[2023-12-28] MEDS: SODIUM BICARBONATE 100 MEQ in D5W 1,000 ML IV SCH (10:04)
[2023-12-28] MEDS: HYPROMELLOSE 0.3% 150DROP/10G BTL OU SCH ×2 (11:37→20:58)
[2023-12-28] MEDS: FLUBLOK(EGGFREE) TRIVAL(24-25) VACCINE PF 0.5ML SYRINGE 18YRS & OLDER IM.IMMUN ONE (13:26)
[2023-12-28] MEDS: ARTIFICIAL TEARS DROPS 15ML BTL (VISINE DRY RELIEF) OU SCH (13:27)
[2023-12-28 14:42] LABS: CALCIUM LEVEL 6.5 MG/DL (8.3-10.6); CREATININE FOR GFR 1.39 MG/DL (0.55-1.30); GLOMERULAR FILTRATION RATE 40.1 (>45); POTASSIUM SERUM 3.8 MMOL/L (3.5-5.1)
[2023-12-28] MEDS: [UNRECOGNIZED DRUG - OTHER] PO SCH (20:54)
[2023-12-28] MEDS: DROXIDOPA 100 MG PO SCH (20:54)
[2023-12-28] MEDS ORDERED: HYPROMELLOSE 0.3% 150DROP/10G BTL OU SCH (21:00)
[2023-12-29] VITALS (27 sets, daily range): BP systolic 85–129; BP diastolic 54–68; TEMP 97–97.9; O2SAT 92–97
[2023-12-29 06:28] LABS: IONIZED CALCIUM 4.2 MG/DL (4.5-5.3)
[2023-12-29 06:54] LABS: HEMATOCRIT 30.8 % (36.0-47.0); HEMOGLOBIN 9.9 g/dl (12.0-15.5); MEAN CORPUSCULAR HEMOGLOBIN 32.1 pg (27.0-33.0); MEAN CORPUSCULAR HGB CONC 32.1 g/dl (32.0-36.5); PLATELET COUNT, AUTOMATED 281 10^3/uL (150-450); RED BLOOD COUNT 3.08 10^6/uL (4.00-5.40); WHITE BLOOD COUNT 5.6 10^3/uL (4.0-10.0)
[2023-12-29 06:58] LABS: CALCIUM LEVEL 6.7 MG/DL (8.3-10.6); CREATININE FOR GFR 1.16 MG/DL (0.55-1.30); GLOMERULAR FILTRATION RATE 49.5 (>45); MAGNESIUM LEVEL 1.7 MG/DL (1.8-2.4); POTASSIUM SERUM 3.4 MMOL/L (3.5-5.1)
[2023-12-29] MEDS: POTASSIUM CHLORIDE 10MEQ SR TABLET PO ONE (11:49)
[2023-12-29] MEDS: MAG SULF 1GM/100ML (MAG RUN) 1 GM in IV 1 EA IV SCH (11:50)
[2023-12-29] MEDS: LACTOBACILLUS ACIDOPHILUS CAP (BACID) PO SCH (13:02)
[2023-12-29] MEDS: METAMUCIL (PSYLLIUM) PACKET PO SCH (13:02)
[2023-12-29] MEDS: NS 1,000 ML IV ONE (13:06)
[2023-12-30] VITALS (18 sets, daily range): BP systolic 99–120; BP diastolic 60–69; TEMP 96.6–97.7; O2SAT 92–97
[2023-12-30 05:19] LABS: HEMATOCRIT 31.2 % (36.0-47.0); HEMOGLOBIN 10.2 g/dl (12.0-15.5); MEAN CORPUSCULAR HEMOGLOBIN 32.2 pg (27.0-33.0); MEAN CORPUSCULAR HGB CONC 32.7 g/dl (32.0-36.5); MEAN CORPUSCULAR VOLUME 98.4 fl (80.0-96.0); PLATELET COUNT, AUTOMATED 242 10^3/uL (150-450); RED BLOOD COUNT 3.17 10^6/uL (4.00-5.40); WHITE BLOOD COUNT 5.4 10^3/uL (4.0-10.0)
[2023-12-30 05:47] LABS: BLOOD UREA NITROGEN < 5 MG/DL (9-23); CALCIUM LEVEL 6.6 MG/DL (8.3-10.6); CARBON DIOXIDE LEVEL 20 MMOL/L (20-31); CHLORIDE LEVEL 114 MMOL/L (98-107); CREATININE FOR GFR 0.97 MG/DL (0.55-1.30); GLOMERULAR FILTRATION RATE > 60.0 (>45); GLUCOSE, FASTING 98 MG/DL (74-106); MAGNESIUM LEVEL 2.2 MG/DL (1.8-2.4); POTASSIUM SERUM 3.3 MMOL/L (3.5-5.1); SODIUM LEVEL 140 MMOL/L (136-145)
[2023-12-30] MEDS: KCL 10MEQ/100ML SWI (KRUN) 10 MEQ in IV 1 EA IV SCH (06:45)
[2023-12-30 13:38] LABS: BLOOD UREA NITROGEN < 5 MG/DL (9-23); CALCIUM LEVEL 6.8 MG/DL (8.3-10.6); CARBON DIOXIDE LEVEL 22 MMOL/L (20-31); CHLORIDE LEVEL 112 MMOL/L (98-107); CREATININE FOR GFR 0.97 MG/DL (0.55-1.30); GLOMERULAR FILTRATION RATE > 60.0 (>45); GLUCOSE, FASTING 91 MG/DL (74-106); POTASSIUM SERUM 4.2 MMOL/L (3.5-5.1); SODIUM LEVEL 139 MMOL/L (136-145)
[2023-12-31 04:00] VITALS: BP 93/61; TEMP 96.8; O2SAT 98
[2023-12-31 06:22] LABS: HEMOGLOBIN 10.2 g/dl (12.0-15.5); MEAN CORPUSCULAR HEMOGLOBIN 32.6 pg (27.0-33.0); MEAN CORPUSCULAR HGB CONC 32.9 g/dl (32.0-36.5); PLATELET COUNT, AUTOMATED 249 10^3/uL (150-450); RED BLOOD COUNT 3.13 10^6/uL (4.00-5.40); WHITE BLOOD COUNT 6.7 10^3/uL (4.0-10.0)
[2023-12-31 06:48] LABS: BLOOD UREA NITROGEN < 5 MG/DL (9-23); CARBON DIOXIDE LEVEL 20 MMOL/L (20-31); CHLORIDE LEVEL 114 MMOL/L (98-107); CREATININE FOR GFR 0.96 MG/DL (0.55-1.30); GLOMERULAR FILTRATION RATE > 60.0 (>45); GLUCOSE, FASTING 98 MG/DL (74-106); MAGNESIUM LEVEL 2.2 MG/DL (1.8-2.4); POTASSIUM SERUM 3.6 MMOL/L (3.5-5.1); SODIUM LEVEL 143 MMOL/L (136-145)
[2023-12-31 08:00] VITALS: BP 113/66; TEMP 97.9; O2SAT 96
[2023-12-31 09:00] VITALS: O2SAT 97
[2023-12-31 12:00] VITALS: BP 130/67; TEMP 96.8; O2SAT 99
[2023-12-31 16:00] VITALS: BP 108/65; TEMP 97.7; O2SAT 94
[2023-12-31 21:00] VITALS: O2SAT 96
[2024-01-01] VITALS (7 sets, daily range): BP systolic 92–127; BP diastolic 63–70; TEMP 96.3–99; O2SAT 90–97
[2024-01-01 06:14] LABS: BASO # 0.1 10^3/uL (0.0-0.2); BASO % 0.6 % (0.0-1.0); EOS % 0.3 % (0.0-3.0); HEMOGLOBIN 11.2 g/dl (12.0-15.5); LYMPH # 1.5 10^3/uL (1.5-5.0); LYMPH % 18.5 % (24.0-44.0); MEAN CORPUSCULAR HEMOGLOBIN 31.6 pg (27.0-33.0); MEAN CORPUSCULAR VOLUME 98.9 fl (80.0-96.0); NEUTROPHILS # 5.3 10^3/uL (1.5-8.5); NEUTROPHILS % 66.3 % (36.0-66.0); PLATELET COUNT, AUTOMATED 263 10^3/uL (150-450); RED BLOOD COUNT 3.54 10^6/uL (4.00-5.40)
[2024-01-01 06:22] LABS: CALCIUM LEVEL 7.6 MG/DL (8.3-10.6); CREATININE FOR GFR 1.09 MG/DL (0.55-1.30); GLOMERULAR FILTRATION RATE 53.1 (>45); MAGNESIUM LEVEL 2.2 MG/DL (1.8-2.4)
[2024-01-01] MEDS: SODIUM BICARBONATE 325 MG TAB PO SCH (09:16)
[2024-01-01] MEDS: SODIUM BICARBONATE 150 MEQ in D5W 1,000 ML IV SCH (12:03)
[2024-01-01] MEDS: methylPREDNISolone 125MG 2ML VIAL IV ONE (12:03)
[2024-01-02] VITALS (7 sets, daily range): BP systolic 95–125; BP diastolic 62–70; TEMP 97–97.7; O2SAT 96–98
[2024-01-02 05:57] LABS: BASO % 0.2 % (0.0-1.0); HEMATOCRIT 29.5 % (36.0-47.0); HEMOGLOBIN 9.8 g/dl (12.0-15.5); LYMPH # 1.5 10^3/uL (1.5-5.0); LYMPH % 17.2 % (24.0-44.0); MEAN CORPUSCULAR HEMOGLOBIN 31.6 pg (27.0-33.0); MEAN CORPUSCULAR HGB CONC 33.2 g/dl (32.0-36.5); MEAN CORPUSCULAR VOLUME 95.2 fl (80.0-96.0); MONO # 0.9 10^3/uL (0.0-0.8); NEUTROPHILS % 69.6 % (36.0-66.0); PLATELET COUNT, AUTOMATED 242 10^3/uL (150-450); WHITE BLOOD COUNT 8.6 10^3/uL (4.0-10.0)
[2024-01-02 06:32] LABS: BLOOD UREA NITROGEN 6 MG/DL (9-23); CALCIUM LEVEL 7.1 MG/DL (8.3-10.6); CARBON DIOXIDE LEVEL 28 MMOL/L (20-31); CHLORIDE LEVEL 109 MMOL/L (98-107); CREATININE FOR GFR 0.97 MG/DL (0.55-1.30); GLOMERULAR FILTRATION RATE > 60.0 (>45); GLUCOSE, FASTING 210 MG/DL (74-106); POTASSIUM SERUM 2.9 MMOL/L (3.5-5.1); SODIUM LEVEL 140 MMOL/L (136-145)
[2024-01-02] MEDS: PINK BISMUTH SUSP 524MG/30ML ORAL SYRINGE PO SCH (06:43)
[2024-01-02] MEDS: LOPERAMIDE 2 MG CAPLET PO SCH (06:43)
[2024-01-02] MEDS: POTASSIUM CHLORIDE 10MEQ SR TABLET PO ONE ×2 (09:04→11:44)
[2024-01-02] MEDS: POTASSIUM CHLORIDE INJ 40 MEQ in LR 1,000 ML IV SCH (11:07)
[2024-01-03] VITALS (12 sets, daily range): BP systolic 90–111; BP diastolic 56–71; TEMP 96.8–98.4; O2SAT 91–100
[2024-01-03 06:44] LABS: HEMOGLOBIN 10.4 g/dl (12.0-15.5); MEAN CORPUSCULAR HEMOGLOBIN 32.2 pg (27.0-33.0); MEAN CORPUSCULAR HGB CONC 33.5 g/dl (32.0-36.5); PLATELET COUNT, AUTOMATED 240 10^3/uL (150-450); RED BLOOD COUNT 3.23 10^6/uL (4.00-5.40); WHITE BLOOD COUNT 8.1 10^3/uL (4.0-10.0)
[2024-01-03 07:06] LABS: CALCIUM LEVEL 7.2 MG/DL (8.3-10.6); CREATININE FOR GFR 1.01 MG/DL (0.55-1.30); POTASSIUM SERUM 3.6 MMOL/L (3.5-5.1)
[2024-01-03] MEDS: POLYETHYLENE GLYCOL (MIRALAX) 238GM BOTTLE PO STA (12:59)
[2024-01-03] MEDS ORDERED: propofoL 200 MG/20 ML VIAL As Ordered ONE (17:34)
[2024-01-03] MEDS ORDERED: GLYCOPYRROLATE INJ 0.2 MG/ML 2 ML VIAL As Ordered ONE (17:48)
[2024-01-03] MEDS ORDERED: PHENYLephrine 500MCG 5ML (100MCG/ML) SYRINGE As Ordered ONE (17:49)
[2024-01-03] MEDS ORDERED: ePHEDrine SULFATE 25 MG/5 ML(5MG/ML) SYRINGE As Ordered ONE (17:49)
[2024-01-04 03:58] VITALS: BP 119/71; TEMP 98.6; O2SAT 97
[2024-01-04 06:04] LABS: HEMATOCRIT 34.3 % (36.0-47.0); HEMOGLOBIN 11.2 g/dl (12.0-15.5); MEAN CORPUSCULAR HEMOGLOBIN 32.6 pg (27.0-33.0); MEAN CORPUSCULAR HGB CONC 32.7 g/dl (32.0-36.5); MEAN CORPUSCULAR VOLUME 99.7 fl (80.0-96.0); PLATELET COUNT, AUTOMATED 235 10^3/uL (150-450); RED BLOOD COUNT 3.44 10^6/uL (4.00-5.40); WHITE BLOOD COUNT 7.6 10^3/uL (4.0-10.0)
[2024-01-04 06:32] LABS: CALCIUM LEVEL 7.8 MG/DL (8.3-10.6); CREATININE FOR GFR 0.99 MG/DL (0.55-1.30); GLOMERULAR FILTRATION RATE 59.4 (>45); POTASSIUM SERUM 3.5 MMOL/L (3.5-5.1)
[2024-01-04 08:00] VITALS: BP 119/80; TEMP 97.5; O2SAT 96
[2024-01-04 11:00] VITALS: BP_SYST 67; BP_SYST 89; BP_SYST 94; BP_DIAS 44; BP_DIAS 60; BP_DIAS 61
[2024-01-04] MEDS ORDERED: LR 1,000 ML IV SCH (11:15)
[2024-01-04] MEDS: POTASSIUM CHLORIDE 10MEQ SR TABLET PO ONE (11:37)
[2024-01-04] MEDS: LR 1,000 ML IV ONE (11:52)
[2024-01-04 12:00] VITALS: BP 108/60; TEMP 97.3; O2SAT 94
[2024-01-04] MEDS: predniSONE 20 MG TAB PO SCH (14:12)
[2024-01-04 16:00] VITALS: BP 109/62; TEMP 97.5; O2SAT 97
[2024-01-04 21:46] VITALS: BP 107/62; TEMP 97.9; O2SAT 96
[2024-01-05] VITALS (7 sets, daily range): BP systolic 103–118; BP diastolic 62–74; TEMP 96.8–98.1; O2SAT 97–100
[2024-01-05 06:00] LABS: HEMATOCRIT 31.9 % (36.0-47.0); HEMOGLOBIN 10.4 g/dl (12.0-15.5); MEAN CORPUSCULAR HGB CONC 32.6 g/dl (32.0-36.5); MEAN CORPUSCULAR VOLUME 98.2 fl (80.0-96.0); PLATELET COUNT, AUTOMATED 244 10^3/uL (150-450); RED BLOOD COUNT 3.25 10^6/uL (4.00-5.40); WHITE BLOOD COUNT 7.5 10^3/uL (4.0-10.0)
[2024-01-05 06:14] LABS: BLOOD UREA NITROGEN 8 MG/DL (9-23); CARBON DIOXIDE LEVEL 22 MMOL/L (20-31); CHLORIDE LEVEL 114 MMOL/L (98-107); CREATININE FOR GFR 0.94 MG/DL (0.55-1.30); GLOMERULAR FILTRATION RATE > 60.0 (>45); GLUCOSE, FASTING 163 MG/DL (74-106); POTASSIUM SERUM 4.1 MMOL/L (3.5-5.1); SODIUM LEVEL 141 MMOL/L (136-145)
[2024-01-06] VITALS: BP 101/63; TEMP 97.7; O2SAT 95
[2024-01-06 04:30] VITALS: BP 102/63; TEMP 98.4; O2SAT 99
[2024-01-06 05:30] LABS: HEMATOCRIT 31.4 % (36.0-47.0); HEMOGLOBIN 10.3 g/dl (12.0-15.5); MEAN CORPUSCULAR HGB CONC 32.8 g/dl (32.0-36.5); MEAN CORPUSCULAR VOLUME 97.5 fl (80.0-96.0); PLATELET COUNT, AUTOMATED 253 10^3/uL (150-450); RED BLOOD COUNT 3.22 10^6/uL (4.00-5.40); WHITE BLOOD COUNT 12.9 10^3/uL (4.0-10.0)
[2024-01-06 05:54] LABS: BLOOD UREA NITROGEN 9 MG/DL (9-23); CALCIUM LEVEL 6.6 MG/DL (8.3-10.6); CARBON DIOXIDE LEVEL 22 MMOL/L (20-31); CHLORIDE LEVEL 113 MMOL/L (98-107); CREATININE FOR GFR 0.94 MG/DL (0.55-1.30); GLOMERULAR FILTRATION RATE > 60.0 (>45); GLUCOSE, FASTING 125 MG/DL (74-106); POTASSIUM SERUM 3.8 MMOL/L (3.5-5.1); SODIUM LEVEL 141 MMOL/L (136-145)
[2024-01-06 08:00] VITALS: BP 104/63; TEMP 97.9; O2SAT 95
[2024-01-06 08:29] VITALS: BP 104/63
[2024-01-06] MEDS ORDERED: RISATAB3 PO (09:47)
[2024-01-06] MEDS ORDERED: LOPE2CA PO (09:47)
[2024-01-06] MEDS ORDERED: META1POW PO (09:47)
[2024-01-06] MEDS ORDERED: PRED20TA PO (09:47)
[2024-01-06 09:55] LABS: PROCALCITONIN 0.05 ng/ml
[2024-01-06] MEDS ORDERED: PINK BISMUTH SUSP 524MG/30ML ORAL SYRINGE PO PRN (12:00)
== END 2024-01-06 11:36 | disposition home or self-care (01) | DRG 394 ==
LOC: M ED 11:26 → M ED INP 11:27 → M MSPAV 20:24 → OBSVTOIN 12-30 11:01 → M MSPAV 12-31 10:57
PROVIDERS: ADMIT Student in an Organized Health Care Education/Training Program; ATTEND General Practice
PROC: 0DBB8ZX Excision of Ileum, Via Natural or Artificial Opening Endoscopic, Diagnostic (ICD-10-PCS; principal; 2024-01-03 17:00)
DX: K52.1 Toxic gastroenteritis and colitis (principal); N17.9 Acute kidney failure, unspecified; E87.20 Acidosis, unspecified; C78.7 Secondary malignant neoplasm of liver and intrahepatic bile duct; C79.31 Secondary malignant neoplasm of brain; C79.51 Secondary malignant neoplasm of bone; C34.90 Malignant neoplasm of unspecified part of unspecified bronchus or lung; I10 Essential (primary) hypertension; E78.5 Hyperlipidemia, unspecified; G90.A Postural orthostatic tachycardia syndrome [POTS]; E87.6 Hypokalemia; E86.0 Dehydration; D63.8 Anemia in other chronic diseases classified elsewhere; E16.2 Hypoglycemia, unspecified; T45.1X5A Adverse effect of antineoplastic and immunosuppressive drugs, initial encounter; H04.123 Dry eye syndrome of bilateral lacrimal glands; I95.1 Orthostatic hypotension; K64.8 Other hemorrhoids; K57.30 Diverticulosis of large intestine without perforation or abscess without bleeding; Z66 Do not resuscitate; Z79.82 Long term (current) use of aspirin; Z79.52 Long term (current) use of systemic steroids; Z79.899 Other long term (current) drug therapy

== ENCOUNTER 2024-01-31 13:34 | Observation (INO) | payer MEDICARE, BC ==
[~2024-01-31] VITALS: Ht 167.6 cm; Wt 60.0 kg
[~2024-01-31 13:34] MED LIST changes: +ESTR1CAP2 PO; +LOPE2CA PO; +META1POW PO; +PRED20TA PO; +RISATAB3 PO; +SYST0.3G OU; +SYST1SOL4 OU; +VANC125C12 PO
[2024-01-31 15:16] LABS: BASO % 0.4 % (0.0-1.0); EOS % 0.5 % (0.0-3.0); HEMATOCRIT 30.5 % (36.0-47.0); HEMOGLOBIN 9.8 g/dl (12.0-15.5); LYMPH # 1.7 10^3/uL (1.5-5.0); LYMPH % 20.2 % (24.0-44.0); MEAN CORPUSCULAR HEMOGLOBIN 30.2 pg (27.0-33.0); MEAN CORPUSCULAR HGB CONC 32.1 g/dl (32.0-36.5); MEAN CORPUSCULAR VOLUME 93.8 fl (80.0-96.0); MONO # 1.2 10^3/uL (0.0-0.8); MONO % 13.5 % (2.0-8.0); NEUTROPHILS # 5.4 10^3/uL (1.5-8.5); NEUTROPHILS % 63.2 % (36.0-66.0); PLATELET COUNT, AUTOMATED 377 10^3/uL (150-450); RED BLOOD COUNT 3.25 10^6/uL (4.00-5.40); WHITE BLOOD COUNT 8.6 10^3/uL (4.0-10.0)
[2024-01-31 15:39] LABS: ALBUMIN 1.9 G/DL (3.2-5.2); ALKALINE PHOSPHATASE 61 U/L (35-104); ALT/SGPT 25 U/L (7.0-40); AST/SGOT 38 U/L (<34); BILIRUBIN,DIRECT 0.2 MG/DL (<0.4); BILIRUBIN,TOTAL 0.4 MG/DL (0.3-1.2); BLOOD UREA NITROGEN 13 MG/DL (9-23); CALCIUM LEVEL 7.1 MG/DL (8.3-10.6); CARBON DIOXIDE LEVEL 26 MMOL/L (20-31); CHLORIDE LEVEL 106 MMOL/L (98-107); CK-MB VALUE MASS < 1.0 NG/ML (<3.6); CPK CREATINE PHOSPHOKINASE 41 U/L (34-145); CREATININE FOR GFR 1.01 MG/DL (0.55-1.30); GLUCOSE, FASTING 110 MG/DL (74-106); MAGNESIUM LEVEL 1.8 MG/DL (1.8-2.4); MB/CK RELATIVE INDEX 2.43 (< OR =4); POTASSIUM SERUM 4.9 MMOL/L (3.5-5.1); SODIUM LEVEL 136 MMOL/L (136-145)
[2024-01-31] MEDS ORDERED: ISOVUE-370 76% 100ML VIAL As Ordered ONE (15:56)
[2024-01-31] MEDS: NS 1,000 ML IV ONE (17:30)
[2024-01-31 18:27] LABS: CK-MB VALUE MASS < 1.0 NG/ML (<3.6); CPK CREATINE PHOSPHOKINASE 31 U/L (34-145); MB/CK RELATIVE INDEX 3.22 (< OR =4)
[2024-01-31 20:19] LABS: APPEARANCE, URINE CLEAR (CLEAR); BACTERIA, URINE AUTO NEGATIVE (NEGATIVE); BILIRUBIN, URINE AUTO NEGATIVE (NEGATIVE); BLOOD, URINE BLOOD NEGATIVE (NEGATIVE); COLOR, URINE YELLOW (YELLOW); GLUCOSE, URINE (UA) AUTO NEGATIVE (NEGATIVE); KETONE, URINE AUTO TRACE mg/dL (NEGATIVE); LEUKOCYTE ESTERASE, URINE AUTO NEGATIVE (NEGATIVE); NITRITE, URINE AUTO NEGATIVE (NEGATIVE); PROTEIN, URINE AUTO NEGATIVE (NEGATIVE); RBC, URINE AUTO 0 /HPF (0-3); SPECIFIC GRAVITY URINE AUTO 1.026 (1.002-1.035); SQUAMOUS EPITHELIAL CELL UR AU 0 /HPF (0-6); UROBILINOGEN, URINE AUTO 0.2 mg/dL (0.0-2.0); WBC, URINE AUTO 2 /HPF (0-3)
[2024-01-31] MEDS ORDERED: ACETAMINOPHEN 325 MG TAB PO PRN (21:10)
[2024-01-31] MEDS ORDERED: MAALOX 30 ML SUSP *UDC PO PRN (21:10)
[2024-01-31] MEDS ORDERED: MOM 30ML SUSPENSION UDC PO PRN (21:10)
[2024-01-31] MEDS: CEFEPIME HCL 1 GM in DEXTROSE 5% (D5W) ADV/MINI-BAG 50 ML IV SCH (22:28)
[2024-01-31] MEDS: VANCOMYCIN 125MG CAPSULE PO SCH (22:28)
[2024-01-31] MEDS ORDERED: RISATAB3 PO (22:39)
[2024-01-31] MEDS ORDERED: META28.32 PO (22:39)
[2024-01-31] MEDS ORDERED: DROX200C2 PO (22:39)
[2024-01-31] MEDS ORDERED: HOME MED LIST COMPLETE! XX SCH (22:50)
[2024-02-01 07:00] LABS: BLOOD UREA NITROGEN 11 MG/DL (9-23); CALCIUM LEVEL 6.8 MG/DL (8.3-10.6); CARBON DIOXIDE LEVEL 25 MMOL/L (20-31); CHLORIDE LEVEL 108 MMOL/L (98-107); CREATININE FOR GFR 0.84 MG/DL (0.55-1.30); GLOMERULAR FILTRATION RATE > 60.0 (>45); GLUCOSE, FASTING 95 MG/DL (74-106); MAGNESIUM LEVEL 1.7 MG/DL (1.8-2.4); POTASSIUM SERUM 4.6 MMOL/L (3.5-5.1); SODIUM LEVEL 138 MMOL/L (136-145)
[2024-02-01 07:38] VITALS: BP 114/61; TEMP 99.2; O2SAT 92
[2024-02-01 07:43] VITALS: O2SAT 92
[2024-02-01] MEDS: ASPIRIN 81MG ENTERIC TABLET PO SCH (08:47)
[2024-02-01] MEDS: FOLIC ACID 1MG TAB PO SCH (08:47)
[2024-02-01] MEDS: DOXYCYCLINE HYCLATE 100MG TABLET PO SCH (08:47)
[2024-02-01] MEDS: LACTOBACILLUS ACIDOPHILUS CAP (BACID) PO SCH (08:47)
[2024-02-01] MEDS: CALCIUM CARBONATE 500 MG CHEW U/D PO SCH (08:47)
[2024-02-01] MEDS: ENOXAPARIN 40MG/0.4ML SYRINGE (J1650 PER 10MG) SC SCH (08:48)
[2024-02-01] MEDS: CEFEPIME HCL 2 GM in DEXTROSE 5% (D5W) ADV/MINI-BAG 50 ML IV SCH (09:53)
[2024-02-01] MEDS: OMEPRAZOLE 20MG CAP PO SCH (09:53)
[2024-02-01] MEDS: guaiFENesin ER TABLET 600 MG TAB PO SCH (09:53)
[2024-02-01] MEDS: METAMUCIL (PSYLLIUM) PACKET PO SCH (09:54)
[2024-02-01] MEDS: CALCIUM/VITAMIN D 500 MG TAB PO SCH (10:18)
[2024-02-01 12:00] VITALS: BP 125/77; TEMP 97.9; O2SAT 93
[2024-02-01] MEDS: SODIUM CHLORIDE 0.9% INJ 10 ML SYR IV PRN (12:37)
[2024-02-01] MEDS: SODIUM CHLORIDE HYPERTONIC 3% 4ML NEB SOL INH SCH (14:32)
[2024-02-01 20:00] VITALS: BP 124/76; TEMP 97.9; O2SAT 94
[2024-02-01] MEDS: MAGNESIUM GLUCONATE 500 MG TAB PO SCH (21:04)
[2024-02-01] MEDS: HYPROMELLOSE 0.3% 150DROP/10G BTL OU SCH (21:19)
[2024-02-01 22:48] VITALS: O2SAT 95
[2024-02-02] VITALS (10 sets, daily range): BP systolic 96–120; BP diastolic 64–79; TEMP 97.5–100.1; O2SAT 9–92
[2024-02-02 07:57] LABS: BASO % 0.3 % (0.0-1.0); EOS # 0.1 10^3/uL (0.0-0.5); HEMATOCRIT 28.2 % (36.0-47.0); HEMOGLOBIN 9.1 g/dl (12.0-15.5); LYMPH # 1.1 10^3/uL (1.5-5.0); LYMPH % 16.5 % (24.0-44.0); MEAN CORPUSCULAR HEMOGLOBIN 30.7 pg (27.0-33.0); MEAN CORPUSCULAR HGB CONC 32.3 g/dl (32.0-36.5); MEAN CORPUSCULAR VOLUME 95.3 fl (80.0-96.0); MONO % 14.8 % (2.0-8.0); NEUTROPHILS # 4.1 10^3/uL (1.5-8.5); NEUTROPHILS % 62.1 % (36.0-66.0); PLATELET COUNT, AUTOMATED 344 10^3/uL (150-450); RED BLOOD COUNT 2.96 10^6/uL (4.00-5.40); WHITE BLOOD COUNT 6.5 10^3/uL (4.0-10.0)
[2024-02-02 08:26] LABS: BLOOD UREA NITROGEN 10 MG/DL (9-23); CALCIUM LEVEL 7.1 MG/DL (8.3-10.6); CARBON DIOXIDE LEVEL 25 MMOL/L (20-31); CHLORIDE LEVEL 110 MMOL/L (98-107); CREATININE FOR GFR 0.84 MG/DL (0.55-1.30); GLOMERULAR FILTRATION RATE > 60.0 (>45); GLUCOSE, FASTING 97 MG/DL (74-106); MAGNESIUM LEVEL 1.7 MG/DL (1.8-2.4); POTASSIUM SERUM 4.2 MMOL/L (3.5-5.1); SODIUM LEVEL 139 MMOL/L (136-145)
[2024-02-02] MEDS ORDERED: DROXIDOPA 200 MG PO SCH (21:00)
[2024-02-03] MEDS: ALBUTEROL SULFATE 2.5MG/0.5ML INH NEB SOLN NEB PRN (01:54)
[2024-02-03 04:10] VITALS: BP 123/70; TEMP 97.5; O2SAT 94
[2024-02-03 05:13] LABS: HEMOGLOBIN 9.6 g/dl (12.0-15.5); MEAN CORPUSCULAR HEMOGLOBIN 30.6 pg (27.0-33.0); MEAN CORPUSCULAR VOLUME 95.5 fl (80.0-96.0); PLATELET COUNT, AUTOMATED 361 10^3/uL (150-450); RED BLOOD COUNT 3.14 10^6/uL (4.00-5.40); WHITE BLOOD COUNT 8.2 10^3/uL (4.0-10.0)
[2024-02-03] MEDS: HEPARIN SOD (PORCINE) 5000UNITS/ML 1ML VIAL/SYRINGE SQ SCH (05:21)
[2024-02-03 09:24] VITALS: O2SAT 98
[2024-02-03] MEDS: SODIUM CHLORIDE 0.9% INJ 10 ML SYR IV SCH (09:27)
[2024-02-03 09:28] VITALS: O2SAT 95
[2024-02-03 09:36] VITALS: O2SAT 83; O2SAT 92
[2024-02-03 12:22] LABS: BASO % 0.4 % (0.0-1.0); EOS # 0.1 10^3/uL (0.0-0.5); EOS % 1.4 % (0.0-3.0); HEMATOCRIT 29.7 % (36.0-47.0); HEMOGLOBIN 9.5 g/dl (12.0-15.5); LYMPH # 1.2 10^3/uL (1.5-5.0); LYMPH % 16.9 % (24.0-44.0); MEAN CORPUSCULAR HEMOGLOBIN 30.7 pg (27.0-33.0); MEAN CORPUSCULAR VOLUME 96.1 fl (80.0-96.0); MONO # 0.9 10^3/uL (0.0-0.8); MONO % 11.7 % (2.0-8.0); NEUTROPHILS # 4.8 10^3/uL (1.5-8.5); NEUTROPHILS % 65.4 % (36.0-66.0); PLATELET COUNT, AUTOMATED 382 10^3/uL (150-450); RED BLOOD COUNT 3.09 10^6/uL (4.00-5.40); WHITE BLOOD COUNT 7.3 10^3/uL (4.0-10.0)
[2024-02-03 12:57] LABS: BLOOD UREA NITROGEN 11 MG/DL (9-23); CALCIUM LEVEL 7.4 MG/DL (8.3-10.6); CARBON DIOXIDE LEVEL 24 MMOL/L (20-31); CHLORIDE LEVEL 111 MMOL/L (98-107); CREATININE FOR GFR 0.81 MG/DL (0.55-1.30); GLOMERULAR FILTRATION RATE > 60.0 (>45); GLUCOSE, FASTING 113 MG/DL (74-106); POTASSIUM SERUM 4.7 MMOL/L (3.5-5.1); SODIUM LEVEL 139 MMOL/L (136-145)
[2024-02-03 17:36] VITALS: O2SAT 94
[2024-02-03] MEDS: methylPREDNISolone 125MG 2ML VIAL IV ONE (18:38)
[2024-02-03] MEDS: SODIUM CHLORIDE 0.9% INJ 10 ML SYR IV PRN (18:42)
[2024-02-03 20:00] VITALS: BP 113/70; TEMP 97.5; O2SAT 90
[2024-02-04 03:20] VITALS: BP 114/76; TEMP 97; O2SAT 93
[2024-02-04] MEDS: LevoFLOXacin 750 MG TABLET PO SCH (06:20)
[2024-02-04 08:09] VITALS: O2SAT 93
[2024-02-04 08:35] VITALS: BP 115/61; TEMP 98.1; O2SAT 93
[2024-02-04] MEDS: predniSONE 20 MG TAB PO SCH (08:52)
[2024-02-04] MEDS ORDERED: PRED20TA PO (10:52)
[2024-02-04] MEDS ORDERED: LEVO1TAB40 PO (10:52)
[2024-02-04] MEDS ORDERED: PROB250C PO (10:52)
[2024-02-04 19:11] LABS: URINE STREP PNEUMONIAE ANTIGEN NOT DETECTED (NOT DETECT)
[2024-02-05 20:13] LABS: MYCOPLASMA PNEUMONIAE IGG 1.25 (<=0.90)
== END 2024-02-04 13:46 | disposition home or self-care (01) ==
LOC: M ED 13:34 → M ED INP 13:35 → M MSPAV 02-01 10:41
PROVIDERS: ADMIT Student in an Organized Health Care Education/Training Program; ATTEND Internal Medicine
DX: J18.9 Pneumonia, unspecified organism (principal); J96.01 Acute respiratory failure with hypoxia; R42 Dizziness and giddiness; K59.00 Constipation, unspecified; J02.9 Acute pharyngitis, unspecified; J98.11 Atelectasis; A04.72 Enterocolitis due to Clostridium difficile, not specified as recurrent; K21.9 Gastro-esophageal reflux disease without esophagitis; G90.A Postural orthostatic tachycardia syndrome [POTS]; I10 Essential (primary) hypertension; E78.5 Hyperlipidemia, unspecified; D64.9 Anemia, unspecified; K52.1 Toxic gastroenteritis and colitis; T45.1X5A Adverse effect of antineoplastic and immunosuppressive drugs, initial encounter; C34.90 Malignant neoplasm of unspecified part of unspecified bronchus or lung; C78.7 Secondary malignant neoplasm of liver and intrahepatic bile duct; C79.31 Secondary malignant neoplasm of brain; C79.70 Secondary malignant neoplasm of unspecified adrenal gland; C79.51 Secondary malignant neoplasm of bone; C79.89 Secondary malignant neoplasm of other specified sites; Z82.49 Family history of ischemic heart disease and other diseases of the circulatory system; Z82.0 Family history of epilepsy and other diseases of the nervous system; Z82.3 Family history of stroke; Z79.899 Other long term (current) drug therapy
CPT/HCPCS: 36415; 70450; 71275; 74177; 80048; 80076; 81001; 82550; 82553; 83735; 84145; 84484; 85025; 85027; 86140; 86738; 87040; 87449; 87486; 87581; 87633; 87641; 87798; 87899; 93005; 94640; 96365; 96366; 96372; 96375; 96376; 97161; 97530; 99285; G0378; J0692; J1642; J1650; J2919; J7512; Q9967

== ENCOUNTER 2024-02-24 10:45 | Emergency (ER) | payer MEDICARE, BC ==
[~2024-02-24] VITALS: Ht 167.6 cm; Wt 60.4 kg
[~2024-02-24 10:45] MED LIST changes: +DROX200C2 PO; +LEVO1TAB40 PO; +META28.32 PO; +PROB250C PO; +SODIUM CHLORIDE 0.9% INJ 10 ML SYR IV SCH
[2024-02-24 11:54] VITALS: TEMP 98.9
[2024-02-24] MEDS: NS 500 ML IV ONE (12:05)
[2024-02-24 13:07] LABS: BLOOD UREA NITROGEN 10 MG/DL (9-23); CALCIUM LEVEL 7.6 MG/DL (8.3-10.6); CARBON DIOXIDE LEVEL 24 MMOL/L (20-31); CHLORIDE LEVEL 109 MMOL/L (98-107); CREATININE FOR GFR 0.94 MG/DL (0.55-1.30); GLOMERULAR FILTRATION RATE > 60.0 (>45); GLUCOSE, FASTING 80 MG/DL (74-106); MAGNESIUM LEVEL 1.9 MG/DL (1.8-2.4); SODIUM LEVEL 139 MMOL/L (136-145)
[2024-02-24] MEDS ORDERED: HEPARIN SOD (PORCINE) 5000UNITS/ML 1ML VIAL/SYRINGE IV ONE (15:00)
[2024-02-24 15:02] VITALS: BP 112/70; O2SAT 99
[2024-02-24] MEDS: SODIUM CHLORIDE 0.9% INJ 10 ML SYR IV PRN (15:32)
== END 2024-02-24 15:37 | disposition home or self-care (01) ==
LOC: M ED 10:45
DX: R19.7 Diarrhea, unspecified (principal); I10 Essential (primary) hypertension; E78.5 Hyperlipidemia, unspecified; C78.7 Secondary malignant neoplasm of liver and intrahepatic bile duct; C79.51 Secondary malignant neoplasm of bone; C79.31 Secondary malignant neoplasm of brain; C79.71 Secondary malignant neoplasm of right adrenal gland; C76.3 Malignant neoplasm of pelvis; Z92.21 Personal history of antineoplastic chemotherapy; Z92.25 Personal history of immunosuppression therapy; Z79.82 Long term (current) use of aspirin; Z79.899 Other long term (current) drug therapy
CPT/HCPCS: 80048; 82330; 83735; 96374; 99283; J1642

== ENCOUNTER 2024-02-26 16:27 | Emergency (ER) | payer MEDICARE, BC ==
[~2024-02-26] VITALS: Ht 167.6 cm; Wt 58.6 kg
[~2024-02-26 16:27] MED LIST changes: -SODIUM CHLORIDE 0.9% INJ 10 ML SYR IV SCH
[2024-02-26 18:21] LABS: BASO % 0.5 % (0.0-1.0); EOS # 0.1 10^3/uL (0.0-0.5); EOS % 0.9 % (0.0-3.0); HEMOGLOBIN 12.2 g/dl (12.0-15.5); LYMPH # 1.5 10^3/uL (1.5-5.0); LYMPH % 16.8 % (24.0-44.0); MEAN CORPUSCULAR HGB CONC 32.1 g/dl (32.0-36.5); MEAN CORPUSCULAR VOLUME 96.4 fl (80.0-96.0); NEUTROPHILS % 69.3 % (36.0-66.0); PLATELET COUNT, AUTOMATED 331 10^3/uL (150-450); RED BLOOD COUNT 3.94 10^6/uL (4.00-5.40); WHITE BLOOD COUNT 8.6 10^3/uL (4.0-10.0)
[2024-02-26 18:47] LABS: ALBUMIN 2.4 G/DL (3.2-5.2); ALKALINE PHOSPHATASE 88 U/L (35-104); ALT/SGPT 40 U/L (7.0-40); AST/SGOT 26 U/L (<34); BILIRUBIN,TOTAL 0.5 MG/DL (0.3-1.2); BLOOD UREA NITROGEN 9 MG/DL (9-23); CALCIUM LEVEL 8.2 MG/DL (8.3-10.6); CARBON DIOXIDE LEVEL 22 MMOL/L (20-31); CHLORIDE LEVEL 108 MMOL/L (98-107); CREATININE FOR GFR 0.89 MG/DL (0.55-1.30); GLOMERULAR FILTRATION RATE > 60.0 (>45); GLUCOSE, FASTING 95 MG/DL (74-106); POTASSIUM SERUM 4.2 MMOL/L (3.5-5.1); SODIUM LEVEL 138 MMOL/L (136-145); TOTAL PROTEIN 5.5 G/DL (5.7-8.2)
[2024-02-26 20:45] LABS: LIPASE 16 U/L (12-53)
[2024-02-26] MEDS ORDERED: SODIUM CHLORIDE 0.9% INJ 10 ML SYR IV PRN (22:20)
[2024-02-26] MEDS: METOCLOPRAMIDE INJ 10MG/2ML VIAL IV ONE (22:49)
[2024-02-26] MEDS: NS 1,000 ML IV ONE (22:49)
[2024-02-27 01:15] VITALS: TEMP 97.1; O2SAT 99
[2024-02-27 01:28] VITALS: BP 107/68
[2024-02-27] MEDS ORDERED: SODIUM CHLORIDE 0.9% INJ 10 ML SYR IV SCH (09:00)
== END 2024-02-27 01:46 | disposition home or self-care (01) ==
LOC: M ED 16:27
DX: R19.7 Diarrhea, unspecified (principal); E86.0 Dehydration; I10 Essential (primary) hypertension; E78.5 Hyperlipidemia, unspecified; Z85.118 Personal history of other malignant neoplasm of bronchus and lung; C79.31 Secondary malignant neoplasm of brain; G90.A Postural orthostatic tachycardia syndrome [POTS]; Z79.82 Long term (current) use of aspirin; Z79.899 Other long term (current) drug therapy
CPT/HCPCS: 80053; 81001; 83690; 85025; 87486; 87581; 87633; 87798; 93005; 96374; 96375; 99284; J1642; J2765

== ENCOUNTER 2024-03-01 14:20 | Emergency (ER) | payer MEDICARE, BC ==
[~2024-03-01] VITALS: Ht 167.6 cm; Wt 56.8 kg
[2024-03-01] MEDS ORDERED: PROP10TA56 (14:37)
[2024-03-01] MEDS ORDERED: FLUD0.1T (14:37)
[2024-03-01] MEDS ORDERED: SODIUM CHLORIDE 0.9% INJ 10 ML SYR IV PRN (15:05)
[2024-03-01 15:55] LABS: BASO % 0.4 % (0.0-1.0); EOS % 0.3 % (0.0-3.0); HEMATOCRIT 33.8 % (36.0-47.0); LYMPH # 1.7 10^3/uL (1.5-5.0); LYMPH % 16.9 % (24.0-44.0); MEAN CORPUSCULAR HEMOGLOBIN 30.9 pg (27.0-33.0); MEAN CORPUSCULAR HGB CONC 32.5 g/dl (32.0-36.5); MEAN CORPUSCULAR VOLUME 94.9 fl (80.0-96.0); MONO # 0.9 10^3/uL (0.0-0.8); MONO % 8.7 % (2.0-8.0); NEUTROPHILS # 7.1 10^3/uL (1.5-8.5); NEUTROPHILS % 71.7 % (36.0-66.0); PLATELET COUNT, AUTOMATED 298 10^3/uL (150-450); RED BLOOD COUNT 3.56 10^6/uL (4.00-5.40); WHITE BLOOD COUNT 9.9 10^3/uL (4.0-10.0)
[2024-03-01 16:22] LABS: ALBUMIN 1.9 G/DL (3.2-5.2); ALKALINE PHOSPHATASE 85 U/L (35-104); ALT/SGPT 44 U/L (7.0-40); AST/SGOT 46 U/L (<34); BILIRUBIN,DIRECT 0.2 MG/DL (<0.4); BILIRUBIN,TOTAL 0.5 MG/DL (0.3-1.2); BLOOD UREA NITROGEN 14 MG/DL (9-23); CALCIUM LEVEL 7.2 MG/DL (8.3-10.6); CARBON DIOXIDE LEVEL 22 MMOL/L (20-31); CHLORIDE LEVEL 104 MMOL/L (98-107); CREATININE FOR GFR 0.91 MG/DL (0.55-1.30); GLOMERULAR FILTRATION RATE > 60.0 (>45); GLUCOSE, FASTING 88 MG/DL (74-106); SODIUM LEVEL 135 MMOL/L (136-145); TOTAL PROTEIN 4.6 G/DL (5.7-8.2)
[2024-03-01] MEDS ORDERED: PROHANCE 279.3MG/ML 15ML VIAL As Ordered ONE (16:56)
[2024-03-01 19:00] VITALS: BP 114/66; TEMP 97.7; O2SAT 100
== END 2024-03-01 19:20 | disposition home or self-care (01) ==
LOC: M ED 14:20
DX: C34.90 Malignant neoplasm of unspecified part of unspecified bronchus or lung (principal); M35.9 Systemic involvement of connective tissue, unspecified; G63 Polyneuropathy in diseases classified elsewhere; E88.09 Other disorders of plasma-protein metabolism, not elsewhere classified; R26.0 Ataxic gait; G90.9 Disorder of the autonomic nervous system, unspecified; R13.10 Dysphagia, unspecified; D68.4 Acquired coagulation factor deficiency; G90.A Postural orthostatic tachycardia syndrome [POTS]; Z87.891 Personal history of nicotine dependence; C78.7 Secondary malignant neoplasm of liver and intrahepatic bile duct; C79.31 Secondary malignant neoplasm of brain; Z79.82 Long term (current) use of aspirin; Z79.899 Other long term (current) drug therapy
CPT/HCPCS: 70553; 80048; 80076; 85025; 96374; 99284; A9576; J1642

== ENCOUNTER 2024-03-09 10:39 | Inpatient (IN) | payer MEDICARE, BC ==
[~2024-03-09] VITALS: Ht 167.6 cm; Wt 50.5 kg
[~2024-03-09 10:39] MED LIST changes: +FLUD0.1T PO
[2024-03-09 13:28] LABS: BASO % 0.4 % (0.0-1.0); EOS % 0.1 % (0.0-3.0); HEMATOCRIT 41.3 % (36.0-47.0); HEMOGLOBIN 12.8 g/dl (12.0-15.5); LYMPH # 1.8 10^3/uL (1.5-5.0); LYMPH % 16.5 % (24.0-44.0); MEAN CORPUSCULAR HEMOGLOBIN 30.5 pg (27.0-33.0); MEAN CORPUSCULAR VOLUME 98.6 fl (80.0-96.0); MONO # 0.8 10^3/uL (0.0-0.8); MONO % 7.3 % (2.0-8.0); NEUTROPHILS # 7.9 10^3/uL (1.5-8.5); NEUTROPHILS % 74.5 % (36.0-66.0); PLATELET COUNT, AUTOMATED 258 10^3/uL (150-450); RED BLOOD COUNT 4.19 10^6/uL (4.00-5.40); WHITE BLOOD COUNT 10.6 10^3/uL (4.0-10.0)
[2024-03-09] MEDS ORDERED: E-Z-PAQUE 96% w/w SUSP 176GM BTL As Ordered ONE (13:38)
[2024-03-09] MEDS ORDERED: E-Z-GAS II EFFERVESCENT PACKET (SODIUM BICARB./CITRIC ACID/SIMETHICONE) As Ordered ONE (13:39)
[2024-03-09] MEDS ORDERED: E-Z-HD 98% w/w 340GM SUSP BTL As Ordered ONE (13:39)
[2024-03-09 14:03] LABS: PREALBUMIN 8.1 MG/DL (10.0-40.0)
[2024-03-09 14:04] LABS: BLOOD UREA NITROGEN 19 MG/DL (9-23); CALCIUM LEVEL 7.8 MG/DL (8.3-10.6); CARBON DIOXIDE LEVEL 27 MMOL/L (20-31); CHLORIDE LEVEL 102 MMOL/L (98-107); CREATININE FOR GFR 0.85 MG/DL (0.55-1.30); GLOMERULAR FILTRATION RATE > 60.0 (>45); GLUCOSE, FASTING 65 MG/DL (74-106); MAGNESIUM LEVEL 1.8 MG/DL (1.8-2.4); POTASSIUM SERUM 4.7 MMOL/L (3.5-5.1); SODIUM LEVEL 136 MMOL/L (136-145)
[2024-03-09 14:08] LABS: FREE T4 1.24 NG/DL (0.89-1.76); THYROID STIMULATING HORMONE 1.452 uIU/ML (0.55-4.78)
[2024-03-09 14:32] LABS: ALBUMIN 1.9 G/DL (3.2-5.2); ALKALINE PHOSPHATASE 109 U/L (35-104); ALT/SGPT 90 U/L (7.0-40); AST/SGOT 98 U/L (<34); BILIRUBIN,DIRECT 0.2 MG/DL (<0.4); BILIRUBIN,TOTAL 0.4 MG/DL (0.3-1.2); TOTAL PROTEIN 4.8 G/DL (5.7-8.2)
[2024-03-09] MEDS ORDERED: HOME MED LIST COMPLETE! XX SCH (16:25)
[2024-03-09] MEDS ORDERED: ISOVUE-370 76% 100ML VIAL As Ordered ONE (16:37)
[2024-03-09] MEDS ORDERED: GLUCAGON INJ 1MG VIAL SC PRN (17:30)
[2024-03-09] MEDS ORDERED: DEXTROSE 50% 50ML SYRINGE IV PRN (17:30)
[2024-03-09] MEDS ORDERED: GLUCOSE 4 GM CHEW PO PRN (17:30)
[2024-03-09] MEDS ORDERED: ACETAMINOPHEN 325 MG TAB PO PRN (17:35)
[2024-03-09] MEDS: THIAMINE 100 MG TAB PO ONE (18:59)
[2024-03-09] MEDS: D5W/0.9% SODIUM CHLORIDE 1,000 ML IV SCH (19:01)
[2024-03-09 20:10] VITALS: BP 121/57; TEMP 97; O2SAT 98
[2024-03-09 20:11] VITALS: BP 121/57; TEMP 98.2; O2SAT 95
[2024-03-09] MEDS: CALCIUM CARBONATE 500 MG CHEW U/D PO SCH (20:54)
[2024-03-09] MEDS: MAGNESIUM GLUCONATE 500 MG TAB PO SCH (20:54)
[2024-03-09] MEDS: LACTOBACILLUS ACIDOPHILUS CAP (BACID) PO SCH (20:54)
[2024-03-09] MEDS: METAMUCIL (PSYLLIUM) PACKET PO SCH (20:54)
[2024-03-09] MEDS: HYPROMELLOSE 0.3% 150DROP/10G BTL OU SCH (21:00)
[2024-03-09] MEDS: PROPRANOLOL 10 MG TAB PO SCH (21:00)
[2024-03-09] MEDS ORDERED: DROXIDOPA 200 MG PO SCH (21:00)
[2024-03-09 23:02] VITALS: BP 121/57; TEMP 98.2; O2SAT 95
[2024-03-10] VITALS (9 sets, daily range): BP systolic 101–115; BP diastolic 56–97; TEMP 96.6–98.1; O2SAT 95–97
[2024-03-10 06:38] LABS: HEMATOCRIT 33.4 % (36.0-47.0); HEMOGLOBIN 10.9 g/dl (12.0-15.5); MEAN CORPUSCULAR HEMOGLOBIN 31.1 pg (27.0-33.0); MEAN CORPUSCULAR HGB CONC 32.6 g/dl (32.0-36.5); MEAN CORPUSCULAR VOLUME 95.4 fl (80.0-96.0); PLATELET COUNT, AUTOMATED 245 10^3/uL (150-450); WHITE BLOOD COUNT 8.3 10^3/uL (4.0-10.0)
[2024-03-10 06:54] LABS: BLOOD UREA NITROGEN 16 MG/DL (9-23); CALCIUM LEVEL 7.4 MG/DL (8.3-10.6); CARBON DIOXIDE LEVEL 30 MMOL/L (20-31); CHLORIDE LEVEL 104 MMOL/L (98-107); CREATININE FOR GFR 0.78 MG/DL (0.55-1.30); GLOMERULAR FILTRATION RATE > 60.0 (>45); GLUCOSE, FASTING 109 MG/DL (74-106); MAGNESIUM LEVEL 1.7 MG/DL (1.8-2.4); SODIUM LEVEL 139 MMOL/L (136-145)
[2024-03-10] MEDS: FOLIC ACID 1MG TAB PO SCH (09:00)
[2024-03-10] MEDS: FLUDROCORTISONE ACETATE 0.1 MG TAB PO SCH (09:00)
[2024-03-10] MEDS: OMEPRAZOLE 20MG CAP PO SCH (09:00)
[2024-03-10] MEDS ORDERED: fentaNYL 100 MCG/2 ML INJECTION IV PRN (16:55)
[2024-03-10] MEDS ORDERED: oxyCODONE 5MG TAB PO PRN (16:55)
[2024-03-10] MEDS ORDERED: ONDANSETRON 4MG 2ML VIAL IV PRN (16:55)
[2024-03-10] MEDS ORDERED: HYDROMORPHONE HCL 0.5 MG/ 0.5 ML SYRINGE IV PRN (16:55)
[2024-03-11 04:00] VITALS: BP 101/62; TEMP 97.8; O2SAT 95
[2024-03-11 06:11] LABS: HEMATOCRIT 33.2 % (36.0-47.0); HEMOGLOBIN 10.9 g/dl (12.0-15.5); MEAN CORPUSCULAR HEMOGLOBIN 31.1 pg (27.0-33.0); MEAN CORPUSCULAR HGB CONC 32.8 g/dl (32.0-36.5); MEAN CORPUSCULAR VOLUME 94.9 fl (80.0-96.0); PLATELET COUNT, AUTOMATED 252 10^3/uL (150-450); WHITE BLOOD COUNT 7.5 10^3/uL (4.0-10.0)
[2024-03-11 06:39] LABS: BLOOD UREA NITROGEN 12 MG/DL (9-23); CALCIUM LEVEL 7.5 MG/DL (8.3-10.6); CARBON DIOXIDE LEVEL 30 MMOL/L (20-31); CHLORIDE LEVEL 104 MMOL/L (98-107); GLOMERULAR FILTRATION RATE > 60.0 (>45); GLUCOSE, FASTING 89 MG/DL (74-106); MAGNESIUM LEVEL 1.9 MG/DL (1.8-2.4); POTASSIUM SERUM 3.8 MMOL/L (3.5-5.1); SODIUM LEVEL 138 MMOL/L (136-145)
[2024-03-11 08:00] VITALS: BP 106/62; TEMP 97.9; O2SAT 96
[2024-03-11] MEDS: OMEPRAZOLE 20MG CAP PO SCH ×2 (08:35→21:25)
[2024-03-11] MEDS: ASPIRIN 81MG ENTERIC TABLET PO SCH (08:35)
[2024-03-11 12:00] VITALS: BP 122/68; TEMP 97.9; O2SAT 96
[2024-03-11] MEDS ORDERED: VARIBAR PUDDING 40% w/v 230ML TUBE As Ordered ONE (12:15)
[2024-03-11] MEDS ORDERED: VARIBAR NECTAR 40% w/v 240ML SUSP BTL As Ordered ONE (12:15)
[2024-03-11] MEDS ORDERED: BARIUM SULFATE 700 MG TABLET (E-Z-DISK) As Ordered ONE (12:16)
[2024-03-11 21:21] VITALS: BP 106/60; TEMP 97.2; O2SAT 97
[2024-03-11 22:10] VITALS: BP 106/60; TEMP 97.2; O2SAT 97
[2024-03-12 04:58] VITALS: BP 94/53; TEMP 97.9
[2024-03-12 07:24] LABS: HEMATOCRIT 32.3 % (36.0-47.0); HEMOGLOBIN 10.5 g/dl (12.0-15.5); MEAN CORPUSCULAR HEMOGLOBIN 30.7 pg (27.0-33.0); MEAN CORPUSCULAR HGB CONC 32.5 g/dl (32.0-36.5); MEAN CORPUSCULAR VOLUME 94.4 fl (80.0-96.0); PLATELET COUNT, AUTOMATED 226 10^3/uL (150-450); RED BLOOD COUNT 3.42 10^6/uL (4.00-5.40)
[2024-03-12 07:50] LABS: BLOOD UREA NITROGEN 10 MG/DL (9-23); CALCIUM LEVEL 7.3 MG/DL (8.3-10.6); CARBON DIOXIDE LEVEL 30 MMOL/L (20-31); CHLORIDE LEVEL 105 MMOL/L (98-107); CREATININE FOR GFR 0.88 MG/DL (0.55-1.30); GLOMERULAR FILTRATION RATE > 60.0 (>45); GLUCOSE, FASTING 94 MG/DL (74-106); MAGNESIUM LEVEL 1.7 MG/DL (1.8-2.4); POTASSIUM SERUM 3.8 MMOL/L (3.5-5.1); SODIUM LEVEL 138 MMOL/L (136-145)
[2024-03-12] MEDS: MAGNESIUM GLUCONATE 500 MG TAB PO SCH (08:19)
[2024-03-12 08:20] VITALS: BP 105/69
[2024-03-12] MEDS ORDERED: FAMO20TA PO (08:20)
[2024-03-12] MEDS ORDERED: OMEP40CA4 PO (08:20)
== END 2024-03-12 11:20 | disposition home or self-care (01) | DRG 391 ==
LOC: M ED 10:39 → M ED INP 17:27 → M MS5PR 20:08
PROVIDERS: ADMIT Student in an Organized Health Care Education/Training Program; ATTEND Internal Medicine Nephrology
PROC: 0DB18ZX Excision of Upper Esophagus, Via Natural or Artificial Opening Endoscopic, Diagnostic (ICD-10-PCS; principal; 2024-03-10 16:15)
DX: K21.9 Gastro-esophageal reflux disease without esophagitis (principal); E43 Unspecified severe protein-calorie malnutrition; C79.31 Secondary malignant neoplasm of brain; C79.70 Secondary malignant neoplasm of unspecified adrenal gland; C78.7 Secondary malignant neoplasm of liver and intrahepatic bile duct; C79.51 Secondary malignant neoplasm of bone; C34.90 Malignant neoplasm of unspecified part of unspecified bronchus or lung; Z68.1 Body mass index [BMI] 19.9 or less, adult; G90.A Postural orthostatic tachycardia syndrome [POTS]; I10 Essential (primary) hypertension; E83.42 Hypomagnesemia; E78.5 Hyperlipidemia, unspecified; R13.11 Dysphagia, oral phase; E16.2 Hypoglycemia, unspecified; Z66 Do not resuscitate; R13.12 Dysphagia, oropharyngeal phase; K44.9 Diaphragmatic hernia without obstruction or gangrene; D63.8 Anemia in other chronic diseases classified elsewhere; Z79.82 Long term (current) use of aspirin; Z79.899 Other long term (current) drug therapy

== ENCOUNTER 2024-03-29 16:06 | Observation (INO) | payer MEDICARE, BC ==
[~2024-03-29] VITALS: Ht 167.6 cm; Wt 57.6 kg
[~2024-03-29 16:06] MED LIST changes: +FAMO20TA PO; +OMEP40CA4 PO
[2024-03-29] MEDS: NS 500 ML IV ONE ×2 (16:55→17:40)
[2024-03-29 17:14] LABS: EOS % 0.1 % (0.0-3.0); HEMATOCRIT 35.7 % (36.0-47.0); HEMOGLOBIN 11.7 g/dl (12.0-15.5); LYMPH # 1.6 10^3/uL (1.5-5.0); LYMPH % 23.4 % (24.0-44.0); MEAN CORPUSCULAR HEMOGLOBIN 30.9 pg (27.0-33.0); MEAN CORPUSCULAR HGB CONC 32.8 g/dl (32.0-36.5); MEAN CORPUSCULAR VOLUME 94.2 fl (80.0-96.0); MONO # 0.7 10^3/uL (0.0-0.8); MONO % 10.5 % (2.0-8.0); NEUTROPHILS # 4.5 10^3/uL (1.5-8.5); NEUTROPHILS % 65.4 % (36.0-66.0); PLATELET COUNT, AUTOMATED 272 10^3/uL (150-450); RED BLOOD COUNT 3.79 10^6/uL (4.00-5.40); WHITE BLOOD COUNT 6.8 10^3/uL (4.0-10.0)
[2024-03-29] MEDS: NS (Normal Saline) 0.9% 1,000 ML IV SCH (19:00)
[2024-03-29] MEDS ORDERED: FAMO20TA PO (20:22)
[2024-03-29] MEDS ORDERED: IBUP200C33 PO (20:22)
[2024-03-29] MEDS ORDERED: MAGN200T PO (20:22)
[2024-03-29] MEDS ORDERED: MIDO10TA3 PO (20:22)
[2024-03-29] MEDS ORDERED: OMEP40CA5 PO (20:22)
[2024-03-29] MEDS ORDERED: HOME MED LIST COMPLETE! XX SCH (20:25)
[2024-03-29] MEDS ORDERED: GLUCAGON INJ 1MG VIAL SC PRN (21:10)
[2024-03-29] MEDS ORDERED: MOM 30ML SUSPENSION UDC PO PRN (21:10)
[2024-03-29] MEDS ORDERED: GLUCOSE 4 GM CHEW PO PRN (21:10)
[2024-03-29] MEDS ORDERED: DEXTROSE 50% 50ML SYRINGE IV PRN (21:10)
[2024-03-29 22:02] LABS: THYROID STIMULATING HORMONE 1.142 uIU/ML (0.55-4.78)
[2024-03-29 22:03] LABS: INR 1.13; PARTIAL THROMBOPLASTIN TIME 27.7 SECONDS (24.8-34.2); PROTHROMBIN TIME 14.9 SECONDS (12.5-14.5)
[2024-03-29 22:20] LABS: ALBUMIN 1.5 G/DL (3.2-5.2); BILIRUBIN,DIRECT 0.2 MG/DL (<0.4); BILIRUBIN,TOTAL 0.4 MG/DL (0.3-1.2); CALCIUM LEVEL 7.1 MG/DL (8.3-10.6); GLOMERULAR FILTRATION RATE 58.7 (>45); MAGNESIUM LEVEL 1.7 MG/DL (1.8-2.4); POTASSIUM SERUM 4.8 MMOL/L (3.5-5.1); THYROXINE (T4) 5.1 UG/DL (4.5-10.9); TOTAL PROTEIN 3.9 G/DL (5.7-8.2)
[2024-03-29 22:34] LABS: T UPTAKE 59.7 % (22.5-37.0)
[2024-03-29 23:30] VITALS: BP 122/59; TEMP 97.3; O2SAT 95
[2024-03-29] MEDS: MAGNESIUM OXIDE 400MG TAB (MAG-OX) PO SCH (23:42)
[2024-03-29] MEDS: FAMOTIDINE 20 MG TAB PO SCH (23:42)
[2024-03-30] VITALS (7 sets, daily range): BP systolic 80–115; BP diastolic 50–62; TEMP 97.4–99.1; O2SAT 95–99
[2024-03-30 06:27] LABS: HEMATOCRIT 33.7 % (36.0-47.0); HEMOGLOBIN 10.6 g/dl (12.0-15.5); MEAN CORPUSCULAR HEMOGLOBIN 29.9 pg (27.0-33.0); MEAN CORPUSCULAR HGB CONC 31.5 g/dl (32.0-36.5); MEAN CORPUSCULAR VOLUME 95.2 fl (80.0-96.0); PLATELET COUNT, AUTOMATED 195 10^3/uL (150-450); RED BLOOD COUNT 3.54 10^6/uL (4.00-5.40); WHITE BLOOD COUNT 5.2 10^3/uL (4.0-10.0)
[2024-03-30 06:45] LABS: ALBUMIN 1.3 G/DL (3.2-5.2); ALKALINE PHOSPHATASE 147 U/L (35-104); ALT/SGPT 105 U/L (7.0-40); AST/SGOT 81 U/L (<34); BILIRUBIN,TOTAL 0.3 MG/DL (0.3-1.2); BLOOD UREA NITROGEN 12 MG/DL (9-23); CALCIUM LEVEL 6.8 MG/DL (8.3-10.6); CARBON DIOXIDE LEVEL 28 MMOL/L (20-31); CHLORIDE LEVEL 108 MMOL/L (98-107); CREATININE FOR GFR 0.94 MG/DL (0.55-1.30); GLOMERULAR FILTRATION RATE > 60.0 (>45); GLUCOSE, FASTING 74 MG/DL (74-106); MAGNESIUM LEVEL 1.7 MG/DL (1.8-2.4); POTASSIUM SERUM 4.6 MMOL/L (3.5-5.1); SODIUM LEVEL 141 MMOL/L (136-145); TOTAL PROTEIN 3.7 G/DL (5.7-8.2)
[2024-03-30] MEDS: CALCIUM/VITAMIN D 500 MG TAB PO SCH (08:27)
[2024-03-30] MEDS: FLUDROCORTISONE ACETATE 0.1 MG TAB PO SCH (08:28)
[2024-03-30] MEDS: CALCIUM CARBONATE 500 MG CHEW U/D PO SCH (08:28)
[2024-03-30] MEDS: DOCUSATE SODIUM 100MG CAPSULE PO SCH (08:28)
[2024-03-30] MEDS: OMEPRAZOLE 20MG CAP PO SCH (08:28)
[2024-03-30] MEDS: MIDODRINE 5 MG TAB PO SCH (08:28)
[2024-03-30] MEDS: MULTIVITAMINS/MINERALS THERAP 1 TAB PO SCH (08:29)
[2024-03-30] MEDS: ASPIRIN 81MG ENTERIC TABLET PO SCH (08:29)
[2024-03-30] MEDS ORDERED: SYSTANE OU SCH (09:00)
[2024-03-30 09:23] LABS: CORTISOL AM 19.4 UG/DL (4.3-22.4)
[2024-03-31] VITALS (18 sets, daily range): BP systolic 80–109; BP diastolic 47–63; TEMP 97.7–99.1; O2SAT 95–99
[2024-03-31 09:23] LABS: CALCIUM LEVEL 7.2 MG/DL (8.3-10.6); GLOMERULAR FILTRATION RATE 58.7 (>45); MAGNESIUM LEVEL 1.8 MG/DL (1.8-2.4)
[2024-03-31 10:27] LABS: HEMATOCRIT 35.9 % (36.0-47.0); MEAN CORPUSCULAR HEMOGLOBIN 30.7 pg (27.0-33.0); MEAN CORPUSCULAR HGB CONC 33.4 g/dl (32.0-36.5); MEAN CORPUSCULAR VOLUME 91.8 fl (80.0-96.0); RED BLOOD COUNT 3.91 10^6/uL (4.00-5.40); WHITE BLOOD COUNT 3.2 10^3/uL (4.0-10.0)
[2024-03-31 10:30] LABS: PLATELET COUNT, AUTOMATED 4 10^3/uL (150-450)
[2024-03-31 12:09] LABS: BASO % 0.2 % (0.0-1.0); EOS % 0.5 % (0.0-3.0); HEMATOCRIT 33.6 % (36.0-47.0); HEMOGLOBIN 10.9 g/dl (12.0-15.5); LYMPH # 1.5 10^3/uL (1.5-5.0); MEAN CORPUSCULAR HEMOGLOBIN 30.8 pg (27.0-33.0); MEAN CORPUSCULAR HGB CONC 32.4 g/dl (32.0-36.5); MEAN CORPUSCULAR VOLUME 94.9 fl (80.0-96.0); MONO # 0.8 10^3/uL (0.0-0.8); NEUTROPHILS # 4.2 10^3/uL (1.5-8.5); NEUTROPHILS % 63.8 % (36.0-66.0); RED BLOOD COUNT 3.54 10^6/uL (4.00-5.40); WHITE BLOOD COUNT 6.6 10^3/uL (4.0-10.0)
[2024-03-31 12:13] LABS: PLATELET COUNT, AUTOMATED 254 10^3/uL (150-450)
[2024-03-31 15:49] LABS: HEPATITIS B SURFACE ANTIGEN NEGATIVE (NEGATIVE)
[2024-03-31] MEDS: NS (Normal Saline) 0.9% 500 ML IV SCH (15:51)
[2024-03-31 16:01] LABS: HIV SCREEN CENTAUR SOURCE NEGATIVE (NEGATIVE)
[2024-03-31 16:10] LABS: HEP C VIRUS AB INDEX SOURCE PT < 0.0 INDEX (0.0-0.8)
[2024-03-31] MEDS: DROXIDOPA 200 MG PO SCH (20:31)
[2024-04-01] VITALS (8 sets, daily range): BP systolic 82–131; BP diastolic 56–77; TEMP 97.5–98.8; O2SAT 95–100
[2024-04-01 05:57] LABS: HEMATOCRIT 29.5 % (36.0-47.0); HEMOGLOBIN 9.7 g/dl (12.0-15.5); MEAN CORPUSCULAR HEMOGLOBIN 30.8 pg (27.0-33.0); MEAN CORPUSCULAR HGB CONC 32.9 g/dl (32.0-36.5); MEAN CORPUSCULAR VOLUME 93.7 fl (80.0-96.0); PLATELET COUNT, AUTOMATED 218 10^3/uL (150-450); RED BLOOD COUNT 3.15 10^6/uL (4.00-5.40); WHITE BLOOD COUNT 5.5 10^3/uL (4.0-10.0)
[2024-04-01 06:21] LABS: BLOOD UREA NITROGEN 12 MG/DL (9-23); CALCIUM LEVEL 7.1 MG/DL (8.3-10.6); CARBON DIOXIDE LEVEL 28 MMOL/L (20-31); CHLORIDE LEVEL 108 MMOL/L (98-107); CREATININE FOR GFR 0.96 MG/DL (0.55-1.30); GLOMERULAR FILTRATION RATE > 60.0 (>45); GLUCOSE, FASTING 99 MG/DL (74-106); POTASSIUM SERUM 4.1 MMOL/L (3.5-5.1); SODIUM LEVEL 140 MMOL/L (136-145)
[2024-04-01] MEDS ORDERED: ENTER DRUG NAME HERE (PATIENT'S OWN MED) PO SCH (16:00)
[2024-04-01] MEDS: DROXIDOPA 200 MG PO SCH (20:34)
[2024-04-02 04:00] VITALS: BP 118/69; TEMP 97.2; O2SAT 99
[2024-04-02 05:59] LABS: HEMATOCRIT 32.9 % (36.0-47.0); HEMOGLOBIN 10.8 g/dl (12.0-15.5); MEAN CORPUSCULAR HEMOGLOBIN 30.7 pg (27.0-33.0); MEAN CORPUSCULAR HGB CONC 32.8 g/dl (32.0-36.5); MEAN CORPUSCULAR VOLUME 93.5 fl (80.0-96.0); PLATELET COUNT, AUTOMATED 227 10^3/uL (150-450); RED BLOOD COUNT 3.52 10^6/uL (4.00-5.40); WHITE BLOOD COUNT 5.8 10^3/uL (4.0-10.0)
[2024-04-02 06:28] LABS: BLOOD UREA NITROGEN 12 MG/DL (9-23); CALCIUM LEVEL 7.2 MG/DL (8.3-10.6); CARBON DIOXIDE LEVEL 31 MMOL/L (20-31); CHLORIDE LEVEL 106 MMOL/L (98-107); CREATININE FOR GFR 0.98 MG/DL (0.55-1.30); GLOMERULAR FILTRATION RATE > 60.0 (>45); GLUCOSE, FASTING 90 MG/DL (74-106); POTASSIUM SERUM 4.4 MMOL/L (3.5-5.1); SODIUM LEVEL 140 MMOL/L (136-145)
[2024-04-02 08:09] VITALS: BP_SYST 117; BP_SYST 118; BP_SYST 90; BP_SYST 99; BP_DIAS 65; BP_DIAS 66; BP_DIAS 75; BP_DIAS 76
[2024-04-02 11:22] VITALS: BP 125/80
[2024-04-02 12:10] VITALS: BP 114/70; TEMP 97.6; O2SAT 97
[2024-04-02] MEDS: DROXIDOPA 200 MG PO SCH (12:17)
[2024-04-02] MEDS: MAALOX 30 ML SUSP *UDC PO PRN (16:03)
[2024-04-02] MEDS: ACETAMINOPHEN 325 MG TAB PO PRN (16:04)
[2024-04-02 21:36] VITALS: BP 130/78; TEMP 97.7; O2SAT 97
[2024-04-03 03:40] VITALS: BP 103/69; TEMP 98.1; O2SAT 94
[2024-04-03 06:00] LABS: HEMATOCRIT 32.3 % (36.0-47.0); HEMOGLOBIN 10.6 g/dl (12.0-15.5); MEAN CORPUSCULAR HEMOGLOBIN 30.7 pg (27.0-33.0); MEAN CORPUSCULAR HGB CONC 32.8 g/dl (32.0-36.5); MEAN CORPUSCULAR VOLUME 93.6 fl (80.0-96.0); PLATELET COUNT, AUTOMATED 216 10^3/uL (150-450); RED BLOOD COUNT 3.45 10^6/uL (4.00-5.40); WHITE BLOOD COUNT 5.4 10^3/uL (4.0-10.0)
[2024-04-03 06:23] LABS: CALCIUM LEVEL 6.9 MG/DL (8.3-10.6); CREATININE FOR GFR 0.99 MG/DL (0.55-1.30); GLOMERULAR FILTRATION RATE 59.4 (>45); POTASSIUM SERUM 4.4 MMOL/L (3.5-5.1)
[2024-04-03 11:15] VITALS: BP_SYST 105; BP_SYST 112; BP_SYST 92; BP_DIAS 49; BP_DIAS 72; BP_DIAS 80
[2024-04-03 12:03] VITALS: BP 116/73; TEMP 97.9; O2SAT 98
[2024-04-03 19:56] VITALS: BP 140/89; TEMP 97.7; O2SAT 97
[2024-04-04 04:00] VITALS: BP 119/74; TEMP 97.2; O2SAT 96
[2024-04-04 05:49] LABS: HEMATOCRIT 32.4 % (36.0-47.0); HEMOGLOBIN 10.8 g/dl (12.0-15.5); MEAN CORPUSCULAR HEMOGLOBIN 30.7 pg (27.0-33.0); MEAN CORPUSCULAR HGB CONC 33.3 g/dl (32.0-36.5); PLATELET COUNT, AUTOMATED 220 10^3/uL (150-450); RED BLOOD COUNT 3.52 10^6/uL (4.00-5.40); WHITE BLOOD COUNT 5.7 10^3/uL (4.0-10.0)
[2024-04-04 06:12] LABS: BLOOD UREA NITROGEN 11 MG/DL (9-23); CALCIUM LEVEL 7.1 MG/DL (8.3-10.6); CARBON DIOXIDE LEVEL 27 MMOL/L (20-31); CHLORIDE LEVEL 106 MMOL/L (98-107); CREATININE FOR GFR 0.89 MG/DL (0.55-1.30); GLOMERULAR FILTRATION RATE > 60.0 (>45); GLUCOSE, FASTING 94 MG/DL (74-106); POTASSIUM SERUM 4.2 MMOL/L (3.5-5.1); SODIUM LEVEL 140 MMOL/L (136-145)
[2024-04-04] MEDS ORDERED: ONDANSETRON 4MG 2ML VIAL IV PRN (08:05)
[2024-04-04 08:45] VITALS: BP_SYST 100; BP_SYST 118; BP_SYST 75; BP_DIAS 51; BP_DIAS 59; BP_DIAS 72
[2024-04-04] MEDS: PANTOPRAZOLE 20 MG TAB PO SCH (09:22)
[2024-04-04 12:01] VITALS: BP 119/74; TEMP 97.7; O2SAT 97
[2024-04-04 20:23] VITALS: BP 116/73; TEMP 97.5; O2SAT 96
[2024-04-04] MEDS: PROPRANOLOL 10 MG TAB PO SCH (22:57)
[2024-04-05 04:00] VITALS: BP 118/74; TEMP 97.6; O2SAT 96
[2024-04-05 05:13] LABS: HEMOGLOBIN 10.6 g/dl (12.0-15.5); MEAN CORPUSCULAR HEMOGLOBIN 30.5 pg (27.0-33.0); MEAN CORPUSCULAR HGB CONC 33.1 g/dl (32.0-36.5); MEAN CORPUSCULAR VOLUME 92.2 fl (80.0-96.0); PLATELET COUNT, AUTOMATED 242 10^3/uL (150-450); RED BLOOD COUNT 3.47 10^6/uL (4.00-5.40); WHITE BLOOD COUNT 6.3 10^3/uL (4.0-10.0)
[2024-04-05 05:55] LABS: BLOOD UREA NITROGEN 11 MG/DL (9-23); CALCIUM LEVEL 7.3 MG/DL (8.3-10.6); CARBON DIOXIDE LEVEL 30 MMOL/L (20-31); CHLORIDE LEVEL 103 MMOL/L (98-107); CREATININE FOR GFR 0.87 MG/DL (0.55-1.30); GLOMERULAR FILTRATION RATE > 60.0 (>45); GLUCOSE, FASTING 95 MG/DL (74-106); POTASSIUM SERUM 4.1 MMOL/L (3.5-5.1); SODIUM LEVEL 138 MMOL/L (136-145)
[2024-04-05] MEDS: PROPRANOLOL 20 MG TAB PO SCH (08:34)
[2024-04-05 10:25] VITALS: BP_SYST 107; BP_SYST 74; BP_SYST 95; BP_DIAS 55; BP_DIAS 63; BP_DIAS 66
[2024-04-05 12:00] VITALS: BP 113/72; TEMP 97.9; O2SAT 97
[2024-04-05 16:39] VITALS: BP 114/72; TEMP 97.2; O2SAT 95
[2024-04-05 19:52] VITALS: BP 116/75; TEMP 97.7; O2SAT 96
[2024-04-06 03:30] VITALS: BP 102/68; TEMP 97.3; O2SAT 95
[2024-04-06 06:02] LABS: HEMATOCRIT 33.5 % (36.0-47.0); MEAN CORPUSCULAR HEMOGLOBIN 30.4 pg (27.0-33.0); MEAN CORPUSCULAR HGB CONC 32.8 g/dl (32.0-36.5); MEAN CORPUSCULAR VOLUME 92.5 fl (80.0-96.0); PLATELET COUNT, AUTOMATED 246 10^3/uL (150-450); RED BLOOD COUNT 3.62 10^6/uL (4.00-5.40)
[2024-04-06 06:27] LABS: BLOOD UREA NITROGEN 10 MG/DL (9-23); CALCIUM LEVEL 7.3 MG/DL (8.3-10.6); CARBON DIOXIDE LEVEL 29 MMOL/L (20-31); CHLORIDE LEVEL 105 MMOL/L (98-107); CREATININE FOR GFR 0.82 MG/DL (0.55-1.30); GLOMERULAR FILTRATION RATE > 60.0 (>45); GLUCOSE, FASTING 96 MG/DL (74-106); POTASSIUM SERUM 4.1 MMOL/L (3.5-5.1); SODIUM LEVEL 139 MMOL/L (136-145)
[2024-04-06 10:38] VITALS: BP_SYST 122; BP_SYST 129; BP_SYST 88; BP_DIAS 62; BP_DIAS 77; BP_DIAS 78
[2024-04-06 12:00] VITALS: BP 117/70; TEMP 97.8; O2SAT 96
[2024-04-06 12:20] VITALS: BP 136/86
[2024-04-06 16:49] VITALS: BP 137/83
[2024-04-06 20:00] VITALS: BP 137/82; TEMP 97.7; O2SAT 94
[2024-04-06] MEDS ORDERED: SODIUM CHLORIDE 0.9% INJ 10 ML SYR IV PRN (23:00)
[2024-04-07 04:00] VITALS: BP 111/67; TEMP 97.9; O2SAT 95
[2024-04-07 06:07] LABS: HEMATOCRIT 33.4 % (36.0-47.0); MEAN CORPUSCULAR HEMOGLOBIN 30.7 pg (27.0-33.0); MEAN CORPUSCULAR HGB CONC 32.9 g/dl (32.0-36.5); MEAN CORPUSCULAR VOLUME 93.3 fl (80.0-96.0); PLATELET COUNT, AUTOMATED 227 10^3/uL (150-450); RED BLOOD COUNT 3.58 10^6/uL (4.00-5.40); WHITE BLOOD COUNT 5.7 10^3/uL (4.0-10.0)
[2024-04-07 06:31] LABS: BLOOD UREA NITROGEN 10 MG/DL (9-23); CALCIUM LEVEL 7.1 MG/DL (8.3-10.6); CARBON DIOXIDE LEVEL 28 MMOL/L (20-31); CHLORIDE LEVEL 105 MMOL/L (98-107); CREATININE FOR GFR 0.88 MG/DL (0.55-1.30); GLOMERULAR FILTRATION RATE > 60.0 (>45); GLUCOSE, FASTING 85 MG/DL (74-106); SODIUM LEVEL 138 MMOL/L (136-145)
[2024-04-07 07:46] VITALS: BP_SYST 100; BP_SYST 114; BP_SYST 83; BP_DIAS 54; BP_DIAS 61; BP_DIAS 67
[2024-04-07 08:21] VITALS: BP 108/81
[2024-04-07] MEDS: SODIUM CHLORIDE 0.9% INJ 10 ML SYR IV SCH (08:22)
[2024-04-07 12:00] VITALS: BP 104/62; TEMP 97.7; O2SAT 97
[2024-04-07] MEDS ORDERED: [UNRECOGNIZED DRUG - CODE] PO (12:03)
[2024-04-07] MEDS ORDERED: PROP20TA PO (12:03)
[2024-04-07] MEDS ORDERED: OMEP40CA4 PO (12:03)
[2024-04-07] MEDS ORDERED: DROX200C2 PO (22:32)
== END 2024-04-07 14:52 | disposition home or self-care (01) ==
LOC: M ED 16:06 → M ED INP 21:10 → INTOOBSV 21:10 → M PCU 23:30 → M MSPAV 04-01 14:49
PROVIDERS: ADMIT Family Medicine; ATTEND Internal Medicine Nephrology
DX: I95.1 Orthostatic hypotension (principal); R64 Cachexia; C34.90 Malignant neoplasm of unspecified part of unspecified bronchus or lung; C79.31 Secondary malignant neoplasm of brain; C79.70 Secondary malignant neoplasm of unspecified adrenal gland; C78.7 Secondary malignant neoplasm of liver and intrahepatic bile duct; C79.89 Secondary malignant neoplasm of other specified sites; C79.51 Secondary malignant neoplasm of bone; Z92.21 Personal history of antineoplastic chemotherapy; Z92.25 Personal history of immunosuppression therapy; E43 Unspecified severe protein-calorie malnutrition; D64.9 Anemia, unspecified; G90.A Postural orthostatic tachycardia syndrome [POTS]; E87.8 Other disorders of electrolyte and fluid balance, not elsewhere classified; K21.9 Gastro-esophageal reflux disease without esophagitis; K44.9 Diaphragmatic hernia without obstruction or gangrene; I12.9 Hypertensive chronic kidney disease with stage 1 through stage 4 chronic kidney disease, or unspecified chronic kidney disease; E78.5 Hyperlipidemia, unspecified; E83.51 Hypocalcemia; K52.1 Toxic gastroenteritis and colitis; R00.1 Bradycardia, unspecified; N18.30 Chronic kidney disease, stage 3 unspecified; Z79.899 Other long term (current) drug therapy; Z79.82 Long term (current) use of aspirin; Z66 Do not resuscitate; Z11.59 Encounter for screening for other viral diseases
CPT/HCPCS: 36415; 70450; 71045; 80047; 80048; 80053; 80076; 82533; 82550; 82553; 83036; 83690; 83735; 84436; 84439; 84443; 84479; 84484; 85025; 85027; 85049; 85055; 85610; 85730; 86803; 87340; 87389; 93005; 93041; 93306; 94760; 96360; 96361; 97116; 97161; 97530; 97542; 99285; G0378; J1642

== ENCOUNTER 2024-04-07 17:42 | Emergency (ER) | payer MEDICARE, BC ==
[~2024-04-07] VITALS: Ht 167.6 cm; Wt 54.1 kg
[~2024-04-07 17:42] MED LIST changes: +IBUP200C33 PO; +MAGN200T PO; +MIDO10TA3 PO; +OMEP40CA5 PO; +PROP20TA PO; +[UNRECOGNIZED DRUG - CODE] PO
[2024-04-07 21:16] LABS: BASO % 0.1 % (0.0-1.0); HEMATOCRIT 38.5 % (36.0-47.0); HEMOGLOBIN 12.6 g/dl (12.0-15.5); LYMPH # 1.5 10^3/uL (1.5-5.0); LYMPH % 18.2 % (24.0-44.0); MEAN CORPUSCULAR HEMOGLOBIN 30.6 pg (27.0-33.0); MEAN CORPUSCULAR HGB CONC 32.7 g/dl (32.0-36.5); MEAN CORPUSCULAR VOLUME 93.4 fl (80.0-96.0); MONO # 0.7 10^3/uL (0.0-0.8); MONO % 8.1 % (2.0-8.0); NEUTROPHILS % 72.7 % (36.0-66.0); PLATELET COUNT, AUTOMATED 308 10^3/uL (150-450); RED BLOOD COUNT 4.12 10^6/uL (4.00-5.40); WHITE BLOOD COUNT 8.2 10^3/uL (4.0-10.0)
[2024-04-07 21:42] LABS: MB/CK RELATIVE INDEX 2.85 (< OR =4)
[2024-04-07 21:43] LABS: ALBUMIN 1.7 G/DL (3.2-5.2); BILIRUBIN,DIRECT 0.3 MG/DL (<0.4); BILIRUBIN,TOTAL 0.6 MG/DL (0.3-1.2); CALCIUM LEVEL 7.5 MG/DL (8.3-10.6); CREATININE FOR GFR 1.02 MG/DL (0.55-1.30); GLOMERULAR FILTRATION RATE 57.4 (>45); MAGNESIUM LEVEL 1.9 MG/DL (1.8-2.4); POTASSIUM SERUM 4.4 MMOL/L (3.5-5.1); TOTAL PROTEIN 4.6 G/DL (5.7-8.2)
[2024-04-07 21:45] LABS: FREE T4 1.22 NG/DL (0.89-1.76); THYROID STIMULATING HORMONE 1.868 uIU/ML (0.55-4.78)
[2024-04-07] MEDS: NS 500 ML IV ONE (22:15)
[2024-04-07] MEDS ORDERED: DROX200C2 PO (22:32)
[2024-04-07] MEDS ORDERED: HOME MED LIST COMPLETE! XX SCH (22:40)
[2024-04-08] MEDS: CALCIUM CARBONATE 500 MG CHEW U/D PO SCH (08:00)
[2024-04-08] MEDS: MIDODRINE 5 MG TAB PO SCH (08:00)
[2024-04-08] MEDS: ASPIRIN 81MG ENTERIC TABLET PO SCH (08:01)
[2024-04-08] MEDS: OMEPRAZOLE 20MG CAP PO SCH (08:01)
[2024-04-08] MEDS: MULTIVITAMINS/MINERALS THERAP 1 TAB PO SCH (08:01)
[2024-04-08] MEDS: CALCIUM/VITAMIN D 500 MG TAB PO SCH (08:55)
[2024-04-08] MEDS: FLUDROCORTISONE ACETATE 0.1 MG TAB PO SCH (08:55)
[2024-04-08 08:56] VITALS: BP 109/63
[2024-04-08] MEDS: PROPRANOLOL 20 MG TAB PO SCH (08:56)
[2024-04-08] MEDS ORDERED: SYSTANE OU SCH (09:00)
[2024-04-08] MEDS: DROXIDOPA 200 MG PO SCH (09:36)
[2024-04-08] MEDS: HYPROMELLOSE 0.3% 150DROP/10G BTL OU SCH (20:58)
[2024-04-08] MEDS: FAMOTIDINE 20 MG TAB PO SCH (20:59)
[2024-04-08] MEDS: MAGNESIUM OXIDE 400MG TAB (MAG-OX) PO SCH (20:59)
[2024-04-09 15:57] VITALS: BP 147/70; TEMP 96.7; O2SAT 99
== END 2024-04-09 16:01 | disposition home or self-care (01) ==
LOC: M ED 17:42
DX: I95.1 Orthostatic hypotension (principal); R53.1 Weakness; R74.01 Elevation of levels of liver transaminase levels; K21.9 Gastro-esophageal reflux disease without esophagitis; G90.A Postural orthostatic tachycardia syndrome [POTS]; D64.9 Anemia, unspecified; I10 Essential (primary) hypertension; E46 Unspecified protein-calorie malnutrition; C34.90 Malignant neoplasm of unspecified part of unspecified bronchus or lung; C79.31 Secondary malignant neoplasm of brain; C79.70 Secondary malignant neoplasm of unspecified adrenal gland; C78.7 Secondary malignant neoplasm of liver and intrahepatic bile duct; C79.51 Secondary malignant neoplasm of bone; Z92.3 Personal history of irradiation; Z92.21 Personal history of antineoplastic chemotherapy; Z79.82 Long term (current) use of aspirin; Z79.899 Other long term (current) drug therapy

== ENCOUNTER 2024-06-13 13:40 | Inpatient (IN) | payer MEDICARE, BC ==
[~2024-06-13] VITALS: Ht 167.6 cm; Wt 64.7 kg
[~2024-06-13 13:40] MED LIST changes: +DENO60SY2 SC; -PROL60SO SC
[2024-06-13 14:40] LABS: HEMATOCRIT 34.1 % (36.0-47.0); MEAN CORPUSCULAR HEMOGLOBIN 31.7 pg (27.0-33.0); MEAN CORPUSCULAR HGB CONC 32.3 g/dl (32.0-36.5); MEAN CORPUSCULAR VOLUME 98.3 fl (80.0-96.0); PLATELET COUNT, AUTOMATED 431 10^3/uL (150-450); RED BLOOD COUNT 3.47 10^6/uL (4.00-5.40); WHITE BLOOD COUNT 9.5 10^3/uL (4.0-10.0)
[2024-06-13 15:18] LABS: ALBUMIN 1.5 G/DL (3.2-5.2); ALKALINE PHOSPHATASE 200 U/L (35-104); ALT/SGPT 56 U/L (7.0-40); AST/SGOT 85 U/L (<34); BILIRUBIN,DIRECT 0.1 MG/DL (<0.4); BILIRUBIN,TOTAL 0.2 MG/DL (0.3-1.2); BLOOD UREA NITROGEN 14 MG/DL (9-23); CALCIUM LEVEL 7.5 MG/DL (8.3-10.6); CARBON DIOXIDE LEVEL 31 MMOL/L (20-31); CHLORIDE LEVEL 100 MMOL/L (98-107); CREATININE FOR GFR 0.91 MG/DL (0.55-1.30); GLOMERULAR FILTRATION RATE > 60.0 (>45); GLUCOSE, FASTING 126 MG/DL (74-106); MAGNESIUM LEVEL 1.8 MG/DL (1.8-2.4); POTASSIUM SERUM 3.9 MMOL/L (3.5-5.1); SODIUM LEVEL 136 MMOL/L (136-145); TOTAL PROTEIN 4.8 G/DL (5.7-8.2)
[2024-06-13] MEDS: SODIUM CHLORIDE 0.9% INJ 10 ML SYR IV SCH (15:34)
[2024-06-13] MEDS ORDERED: ISOVUE-370 76% 100ML VIAL As Ordered ONE (15:36)
[2024-06-13 15:54] LABS: VENOUS BASE EXCESS 1.9 (-2.0-2.0); VENOUS O2 SATURATION 80.8 % (60.0-80.0); VENOUS PARTIAL PRESSURE CO2 50.5 mmHg (38.0-50.0); VENOUS PARTIAL PRESSURE O2 48.1 mmHg (30.0-50.0); VENOUS PH 7.362 UNITS (7.330-7.430); VENOUS STANDARD HCO3 25.9 MMOL/L; VENOUS TOTAL CO2 29.6 MMOL/L (24.0-28.0)
[2024-06-13] MEDS: DROXIDOPA 300 MG PO SCH (16:00)
[2024-06-13] MEDS ORDERED: [UNRECOGNIZED DRUG - CODE] PO (16:13)
[2024-06-13] MEDS ORDERED: MELA3TAB30 PO (16:17)
[2024-06-13] MEDS ORDERED: CHEL100T4 PO (16:17)
[2024-06-13] MEDS ORDERED: OMEP40CA5 PO (16:17)
[2024-06-13] MEDS ORDERED: PROBCAP14 PO (16:17)
[2024-06-13] MEDS ORDERED: HOME MED LIST COMPLETE! XX SCH (16:20)
[2024-06-13] MEDS ORDERED: PRED20TA PO (16:20)
[2024-06-13] MEDS ORDERED: DOXY100C3 PO (16:20)
[2024-06-13 16:26] LABS: ABG HCO3 25.4 MMOL/L (22.0-26.0); ABG PARTIAL PRESSURE CO2 39.7 mmHg (35.0-45.0); ABG PARTIAL PRESSURE O2 90.2 mmHg (75.0-100.0); ABG STANDARD HCO3 25.3 MMOL/L. (22.0-26.0); ABG TOTAL CO2 26.6 MMOL/L (23.0-31.0); ABG pH (ARTERIAL) 7.424 UNITS (7.350-7.450)
[2024-06-13] MEDS: GASTROGRAFIN SOLUTION 30ML PO SCH (16:28)
[2024-06-13] MEDS ORDERED: KETOROLAC 30 MG/ML 1ML VIAL IV ONE (17:50)
[2024-06-13] MEDS ORDERED: ALBUTEROL SULFATE 2.5MG/0.5ML INH NEB SOLN INH SCH (20:00)
[2024-06-13] MEDS: IPRATROPIUM 0.5MG/ALBUTEROL 2.5MG INH SOL UD 3ML (DUONEB) INH SCH (20:00)
[2024-06-13] MEDS ORDERED: HYPROMELLOSE 0.3% 150DROP/10G BTL OU PRN (20:00)
[2024-06-13] MEDS: HEPARIN SOD (PORCINE) 5000UNITS/ML 1ML VIAL/SYRINGE SC SCH (21:02)
[2024-06-13] MEDS: ALBUTEROL SULFATE 2.5MG/0.5ML INH NEB SOLN INH PRN (21:29)
[2024-06-13] MEDS: DOXYCYCLINE HYCLATE 100MG TABLET PO SCH (21:36)
[2024-06-13] MEDS: PANTOPRAZOLE 40MG VIAL IV SCH (21:36)
[2024-06-13] MEDS: CALCIUM/VITAMIN D 500 MG TAB PO SCH (21:36)
[2024-06-13] MEDS: PROPRANOLOL 10 MG TAB PO SCH (21:36)
[2024-06-13] MEDS: methylPREDNISolone 125MG 2ML VIAL IV ONE (21:36)
[2024-06-13] MEDS: LACTULOSE 20GM/30ML SYRUP UDC PO SCH (21:37)
[2024-06-13] MEDS: guaiFENesin ER TABLET 600 MG TAB PO SCH (21:37)
[2024-06-13] MEDS: cefTRIAXone SOD 1 GM in DEXTROSE 5% (D5W) ADV/MINI-BAG 50 ML IV SCH (21:38)
[2024-06-13 23:00] VITALS: BP 152/75; TEMP 97.3; O2SAT 94
[2024-06-14] VITALS (12 sets, daily range): BP systolic 124–145; BP diastolic 69–82; TEMP 96.6–97.4; O2SAT 95–100
[2024-06-14 05:23] LABS: HEMATOCRIT 36.4 % (36.0-47.0); HEMOGLOBIN 11.7 g/dl (12.0-15.5); MEAN CORPUSCULAR HEMOGLOBIN 31.5 pg (27.0-33.0); MEAN CORPUSCULAR HGB CONC 32.1 g/dl (32.0-36.5); MEAN CORPUSCULAR VOLUME 97.8 fl (80.0-96.0); PLATELET COUNT, AUTOMATED 402 10^3/uL (150-450); RED BLOOD COUNT 3.72 10^6/uL (4.00-5.40); WHITE BLOOD COUNT 8.4 10^3/uL (4.0-10.0)
[2024-06-14] MEDS: methylPREDNISolone 125MG 2ML VIAL IV SCH (05:37)
[2024-06-14 05:46] LABS: ALBUMIN 1.4 G/DL (3.2-5.2); ALKALINE PHOSPHATASE 230 U/L (35-104); ALT/SGPT 70 U/L (7.0-40); AST/SGOT 123 U/L (<34); BILIRUBIN,TOTAL 0.2 MG/DL (0.3-1.2); BLOOD UREA NITROGEN 13 MG/DL (9-23); CALCIUM LEVEL 7.7 MG/DL (8.3-10.6); CARBON DIOXIDE LEVEL 31 MMOL/L (20-31); CHLORIDE LEVEL 99 MMOL/L (98-107); CREATININE FOR GFR 0.96 MG/DL (0.55-1.30); GLOMERULAR FILTRATION RATE > 60.0 (>45); GLUCOSE, FASTING 112 MG/DL (74-106); POTASSIUM SERUM 4.2 MMOL/L (3.5-5.1); SODIUM LEVEL 136 MMOL/L (136-145); TOTAL PROTEIN 4.7 G/DL (5.7-8.2)
[2024-06-14] MEDS ORDERED: VANCOMYCIN 125MG CAPSULE PO SCH (09:00)
[2024-06-14] MEDS ORDERED: UNRESOLVED PATIENT OWN MED ORDER XX SCH (09:00)
[2024-06-14] MEDS: SPIRONOLACTONE 50 MG TAB PO SCH (09:18)
[2024-06-14] MEDS: LACTOBACILLUS ACIDOPHILUS CAP (BACID) PO SCH (09:18)
[2024-06-14] MEDS: ASPIRIN 81MG ENTERIC TABLET PO SCH (09:18)
[2024-06-14] MEDS: MULTIVITAMINS/MINERALS THERAP 1 TAB PO SCH (09:19)
[2024-06-14] MEDS: OMEPRAZOLE 20MG CAP PO SCH (09:19)
[2024-06-14] MEDS: MIDODRINE 5 MG TAB PO SCH (09:20)
[2024-06-14] MEDS: FUROSEMIDE 40MG/4ML VIAL IV SCH ×2 (09:21→16:56)
[2024-06-14] MEDS: CALCIUM CARBONATE 500 MG CHEW U/D PO PRN (10:16)
[2024-06-14] MEDS: FLUDROCORTISONE ACETATE 0.1 MG TAB PO SCH (10:32)
[2024-06-14 11:57] LABS: INR 0.92; PROTHROMBIN TIME 12.7 SECONDS (12.5-14.5)
[2024-06-14] MEDS: LIDOCAINE 5% (LIDODERM) PATCH TD SCH (12:51)
[2024-06-14] MEDS: ONDANSETRON 4MG ORAL DISINTEGRATING TAB PO ONE (21:27)
[2024-06-14] MEDS: RAMELTEON 8 MG TAB (ROZEREM) PO SCH (21:28)
[2024-06-14] MEDS: FAMOTIDINE 20 MG TAB PO SCH (21:29)
[2024-06-14] MEDS: ENOXAPARIN 40MG/0.4ML SYRINGE (J1650 PER 10MG) SC SCH (21:30)
[2024-06-15] VITALS (12 sets, daily range): BP systolic 110–153; BP diastolic 59–80; TEMP 97.2–98.3; O2SAT 97–100
[2024-06-15 07:17] LABS: INR 0.9; PROTHROMBIN TIME 12.4 SECONDS (12.5-14.5)
[2024-06-15 07:36] LABS: HEMATOCRIT 33.2 % (36.0-47.0); MEAN CORPUSCULAR HEMOGLOBIN 32.4 pg (27.0-33.0); MEAN CORPUSCULAR HGB CONC 33.1 g/dl (32.0-36.5); MEAN CORPUSCULAR VOLUME 97.6 fl (80.0-96.0); PLATELET COUNT, AUTOMATED 416 10^3/uL (150-450); WHITE BLOOD COUNT 12.2 10^3/uL (4.0-10.0)
[2024-06-15 07:40] LABS: ALBUMIN 1.6 G/DL (3.2-5.2); BILIRUBIN,DIRECT 0.1 MG/DL (<0.4); BILIRUBIN,TOTAL 0.2 MG/DL (0.3-1.2); CALCIUM LEVEL 7.7 MG/DL (8.3-10.6); CREATININE FOR GFR 1.05 MG/DL (0.55-1.30); GLOMERULAR FILTRATION RATE 55.5 (>45); TOTAL PROTEIN 4.9 G/DL (5.7-8.2)
[2024-06-15 09:08] LABS: ERYTHROCYTE SEDIMENTATION RATE 13 mm/hr (0-30)
[2024-06-15 09:16] LABS: C REACTIVE PROTEIN QUANTITATIV 7.88 MG/DL (<1.0)
[2024-06-15 09:28] LABS: PROCALCITONIN 0.1 ng/ml
[2024-06-15 11:25] LABS: APPEARANCE, BODY FLUID CLEAR (CLEAR); ASCITES FL COLOR YELLOW (COLORLESS); SOURCE, BODY FLUID ASCITES
[2024-06-15 11:40] LABS: SOURCE, BODY FLUID ALBUMIN ASCITES
[2024-06-15 11:45] LABS: SOURCE, BODY FLUID GLUCOSE ASCITES
[2024-06-15 11:46] LABS: SOURCE, BODY FLUID TOT PROTEIN ASCITES; TOTAL PROTEIN, BODY FLUID 2.3 G/DL (NOT ESTABLISHED)
[2024-06-15] MEDS: SODIUM CHLORIDE 0.9% INJ 10 ML SYR IV PRN (17:10)
[2024-06-16] VITALS (15 sets, daily range): BP systolic 102–148; BP diastolic 54–70; TEMP 97–99; O2SAT 86–99
[2024-06-16 08:18] LABS: MEAN CORPUSCULAR HEMOGLOBIN 31.3 pg (27.0-33.0); MEAN CORPUSCULAR HGB CONC 33.1 g/dl (32.0-36.5); MEAN CORPUSCULAR VOLUME 94.7 fl (80.0-96.0); PLATELET COUNT, AUTOMATED 313 10^3/uL (150-450); RED BLOOD COUNT 2.81 10^6/uL (4.00-5.40); WHITE BLOOD COUNT 7.8 10^3/uL (4.0-10.0)
[2024-06-16 08:31] LABS: HEMATOCRIT 26.6 % (36.0-47.0); HEMOGLOBIN 8.8 g/dl (12.0-15.5)
[2024-06-16 08:32] LABS: INR 1.08; PROTHROMBIN TIME 14.3 SECONDS (12.5-14.5)
[2024-06-16 08:45] LABS: ALBUMIN 2.2 G/DL (3.2-5.2); ALKALINE PHOSPHATASE 196 U/L (35-104); ALT/SGPT 44 U/L (7.0-40); AST/SGOT 60 U/L (<34); BILIRUBIN,DIRECT 0.2 MG/DL (<0.4); BILIRUBIN,TOTAL 0.3 MG/DL (0.3-1.2); BLOOD UREA NITROGEN 13 MG/DL (9-23); CALCIUM LEVEL 7.5 MG/DL (8.3-10.6); CARBON DIOXIDE LEVEL 38 MMOL/L (20-31); CHLORIDE LEVEL 97 MMOL/L (98-107); CREATININE FOR GFR 0.92 MG/DL (0.55-1.30); GLOMERULAR FILTRATION RATE > 60.0 (>45); GLUCOSE, FASTING 95 MG/DL (74-106); POTASSIUM SERUM 2.8 MMOL/L (3.5-5.1); SODIUM LEVEL 141 MMOL/L (136-145); TOTAL PROTEIN 4.4 G/DL (5.7-8.2)
[2024-06-16] MEDS: POTASSIUM CHLORIDE 10MEQ SR TABLET PO ONE ×3 (10:23→21:09)
[2024-06-16 10:31] LABS: MAGNESIUM LEVEL 1.5 MG/DL (1.8-2.4)
[2024-06-16 13:33] LABS: BLOOD UREA NITROGEN 12 MG/DL (9-23); CALCIUM LEVEL 7.8 MG/DL (8.3-10.6); CARBON DIOXIDE LEVEL 36 MMOL/L (20-31); CHLORIDE LEVEL 95 MMOL/L (98-107); CREATININE FOR GFR 0.88 MG/DL (0.55-1.30); GLOMERULAR FILTRATION RATE > 60.0 (>45); GLUCOSE, FASTING 119 MG/DL (74-106); POTASSIUM SERUM 3.5 MMOL/L (3.5-5.1); SODIUM LEVEL 139 MMOL/L (136-145)
[2024-06-16] MEDS ORDERED: POTASSIUM CHLORIDE 10MEQ SR TABLET PO SCH (22:00)
[2024-06-17] VITALS (7 sets, daily range): BP systolic 113–146; BP diastolic 73–84; TEMP 97–97.8; O2SAT 83–100
[2024-06-17 08:40] LABS: HEMOGLOBIN 10.1 g/dl (12.0-15.5); MEAN CORPUSCULAR HEMOGLOBIN 31.4 pg (27.0-33.0); MEAN CORPUSCULAR HGB CONC 32.6 g/dl (32.0-36.5); MEAN CORPUSCULAR VOLUME 96.3 fl (80.0-96.0); PLATELET COUNT, AUTOMATED 370 10^3/uL (150-450); RED BLOOD COUNT 3.22 10^6/uL (4.00-5.40); WHITE BLOOD COUNT 8.1 10^3/uL (4.0-10.0)
[2024-06-17 09:10] LABS: IRON (FE) 20 UG/DL (50-170); PERCENT SATURATION 14.2 % (13.2-45.0); TOTAL IRON BINDING CAPACITY 141 UG/DL (250-425)
[2024-06-17 09:11] LABS: ALKALINE PHOSPHATASE 227 U/L (35-104); ALT/SGPT 50 U/L (7.0-40); AST/SGOT 61 U/L (<34); BILIRUBIN,DIRECT 0.2 MG/DL (<0.4); BILIRUBIN,TOTAL 0.3 MG/DL (0.3-1.2); BLOOD UREA NITROGEN 12 MG/DL (9-23); CALCIUM LEVEL 7.4 MG/DL (8.3-10.6); CARBON DIOXIDE LEVEL 38 MMOL/L (20-31); CHLORIDE LEVEL 99 MMOL/L (98-107); CREATININE FOR GFR 0.82 MG/DL (0.55-1.30); GLOMERULAR FILTRATION RATE > 60.0 (>45); GLUCOSE, FASTING 98 MG/DL (74-106); POTASSIUM SERUM 4.2 MMOL/L (3.5-5.1); SODIUM LEVEL 139 MMOL/L (136-145); TOTAL PROTEIN 4.6 G/DL (5.7-8.2)
[2024-06-17 09:12] LABS: FOLATE 14.61 NG/ML (>5.4)
[2024-06-17 09:15] LABS: VITAMIN B12 LEVEL 508 PG/ML (211-911)
[2024-06-17] MEDS: FUROSEMIDE 40MG/4ML VIAL IV ONE (13:41)
[2024-06-17 14:38] LABS: INR 1.07; PROTHROMBIN TIME 14.2 SECONDS (12.5-14.5)
[2024-06-17 15:06] LABS: HEPATITIS B SURFACE ANTIGEN NEGATIVE (NEGATIVE)
[2024-06-17 15:27] LABS: HEPATITIS C VIRUS ABY INDEX 0.02 INDEX (<0.8)
[2024-06-17 15:28] LABS: HEPATITIS B CORE ANTIBODY IGM NEGATIVE (NEGATIVE)
[2024-06-18 04:00] VITALS: BP 132/81; TEMP 97; O2SAT 99
[2024-06-18 06:07] LABS: HEMATOCRIT 28.7 % (36.0-47.0); HEMOGLOBIN 9.2 g/dl (12.0-15.5); MEAN CORPUSCULAR HEMOGLOBIN 31.1 pg (27.0-33.0); MEAN CORPUSCULAR HGB CONC 32.1 g/dl (32.0-36.5); PLATELET COUNT, AUTOMATED 357 10^3/uL (150-450); RED BLOOD COUNT 2.96 10^6/uL (4.00-5.40); WHITE BLOOD COUNT 7.3 10^3/uL (4.0-10.0)
[2024-06-18 06:21] LABS: INR 1.02; PROTHROMBIN TIME 13.7 SECONDS (12.5-14.5)
[2024-06-18 07:07] LABS: ALBUMIN 1.7 G/DL (3.2-5.2); ALKALINE PHOSPHATASE 248 U/L (35-104); ALT/SGPT 56 U/L (7.0-40); AST/SGOT 70 U/L (<34); BILIRUBIN,DIRECT 0.1 MG/DL (<0.4); BILIRUBIN,TOTAL 0.3 MG/DL (0.3-1.2); BLOOD UREA NITROGEN 11 MG/DL (9-23); CALCIUM LEVEL 7.2 MG/DL (8.3-10.6); CARBON DIOXIDE LEVEL 38 MMOL/L (20-31); CHLORIDE LEVEL 99 MMOL/L (98-107); CREATININE FOR GFR 0.77 MG/DL (0.55-1.30); GLOMERULAR FILTRATION RATE > 60.0 (>45); GLUCOSE, FASTING 102 MG/DL (74-106); SODIUM LEVEL 140 MMOL/L (136-145); TOTAL PROTEIN 4.4 G/DL (5.7-8.2)
[2024-06-18 08:00] VITALS: O2SAT 99
[2024-06-18 08:15] VITALS: O2SAT 99
[2024-06-18] MEDS: FUROSEMIDE 100MG/10ML VIAL IV ONE (11:28)
[2024-06-18 12:00] VITALS: BP 112/82; TEMP 97.7; O2SAT 93
[2024-06-18] MEDS: FERRIC CARBOXYMALTOSE INJ 750 MG, VIAL MATE ADAPTER 1 EACH in NS 100 ML IV ONE (12:40)
[2024-06-18 20:00] VITALS: BP 116/78; TEMP 97.7; O2SAT 90
[2024-06-18 21:00] VITALS: O2SAT 92
[2024-06-19 04:00] VITALS: BP 136/76; TEMP 97.7; O2SAT 92
[2024-06-19 06:38] LABS: HEMATOCRIT 34.2 % (36.0-47.0); HEMOGLOBIN 11.1 g/dl (12.0-15.5); MEAN CORPUSCULAR HEMOGLOBIN 31.7 pg (27.0-33.0); MEAN CORPUSCULAR HGB CONC 32.5 g/dl (32.0-36.5); MEAN CORPUSCULAR VOLUME 97.7 fl (80.0-96.0); PLATELET COUNT, AUTOMATED 377 10^3/uL (150-450); WHITE BLOOD COUNT 8.5 10^3/uL (4.0-10.0)
[2024-06-19 06:50] LABS: INR 0.93; PROTHROMBIN TIME 12.7 SECONDS (12.5-14.5)
[2024-06-19 07:18] LABS: ALBUMIN 2.1 G/DL (3.2-5.2); ALKALINE PHOSPHATASE 320 U/L (35-104); ALT/SGPT 72 U/L (7.0-40); AST/SGOT 89 U/L (<34); BILIRUBIN,DIRECT 0.1 MG/DL (<0.4); BILIRUBIN,TOTAL 0.2 MG/DL (0.3-1.2); BLOOD UREA NITROGEN 13 MG/DL (9-23); CALCIUM LEVEL 7.7 MG/DL (8.3-10.6); CARBON DIOXIDE LEVEL 36 MMOL/L (20-31); CHLORIDE LEVEL 98 MMOL/L (98-107); CREATININE FOR GFR 0.87 MG/DL (0.55-1.30); GLOMERULAR FILTRATION RATE > 60.0 (>45); GLUCOSE, FASTING 116 MG/DL (74-106); POTASSIUM SERUM 4.1 MMOL/L (3.5-5.1); SODIUM LEVEL 140 MMOL/L (136-145); TOTAL PROTEIN 5.2 G/DL (5.7-8.2)
[2024-06-19 08:37] VITALS: BP 129/91
[2024-06-19] MEDS: FUROSEMIDE 40 MG TAB PO SCH (08:42)
[2024-06-19] MEDS ORDERED: LASI40TA9 PO (09:35)
[2024-06-19 10:51] VITALS: O2SAT 94
== END 2024-06-19 14:43 | disposition home health service (06) | DRG 871 ==
LOC: M ED 13:40 → EDBD 13:40 → M ED INP 19:58 → M PCU 22:58 → M MSPAV 06-16 23:24
PROVIDERS: ADMIT Student in an Organized Health Care Education/Training Program; ATTEND Internal Medicine
PROC: 0W9G3ZZ Drainage of Peritoneal Cavity, Percutaneous Approach (ICD-10-PCS; 2024-06-15)
PROC: 30233J1 Transfusion of Nonautologous Serum Albumin into Peripheral Vein, Percutaneous Approach (ICD-10-PCS; principal; 2024-06-15 15:00)
DX: A41.9 Sepsis, unspecified organism (principal); J18.9 Pneumonia, unspecified organism; J96.01 Acute respiratory failure with hypoxia; C34.90 Malignant neoplasm of unspecified part of unspecified bronchus or lung; C79.31 Secondary malignant neoplasm of brain; C79.70 Secondary malignant neoplasm of unspecified adrenal gland; C78.7 Secondary malignant neoplasm of liver and intrahepatic bile duct; C79.51 Secondary malignant neoplasm of bone; R18.8 Other ascites; J98.11 Atelectasis; K76.6 Portal hypertension; E46 Unspecified protein-calorie malnutrition; E87.3 Alkalosis; J91.0 Malignant pleural effusion; I12.9 Hypertensive chronic kidney disease with stage 1 through stage 4 chronic kidney disease, or unspecified chronic kidney disease; N18.30 Chronic kidney disease, stage 3 unspecified; E78.5 Hyperlipidemia, unspecified; K44.9 Diaphragmatic hernia without obstruction or gangrene; K21.9 Gastro-esophageal reflux disease without esophagitis; D63.8 Anemia in other chronic diseases classified elsewhere; G90.A Postural orthostatic tachycardia syndrome [POTS]; K74.60 Unspecified cirrhosis of liver; E83.51 Hypocalcemia; I95.1 Orthostatic hypotension; D50.9 Iron deficiency anemia, unspecified; J20.5 Acute bronchitis due to respiratory syncytial virus; G47.00 Insomnia, unspecified; E87.6 Hypokalemia; Z92.21 Personal history of antineoplastic chemotherapy; Z66 Do not resuscitate; Z79.82 Long term (current) use of aspirin; Z79.2 Long term (current) use of antibiotics; Z79.52 Long term (current) use of systemic steroids; Z79.899 Other long term (current) drug therapy

== ENCOUNTER → 2024-11-09 | Outpatient (CLI) | payer MEDICARE, BC ==
[~2024-11-09] MED LIST changes: +CHEL100T4 PO; +DOXY100C3 PO; +FURO20TA2 PO; +GABA-1171 PO; +LASI40TA9 PO; +MAGN250T9 PO; +MELA3TAB30 PO; +PROBCAP14 PO; +SPIR50TA4 PO; +[UNRECOGNIZED DRUG - CODE] PO
[2024-11-09 11:36] LABS: BASO # 0.0 10^3/uL (0.0-0.2); BASO % 0.3 % (0.0-1.0); EOS # 0.1 10^3/uL (0.0-0.5); EOS % 1.0 % (0.0-3.0); LYMPH # 2.3 10^3/uL (1.5-5.0); LYMPH % 37.3 % (24.0-44.0); MONO # 0.7 10^3/uL (0.0-0.8); MONO % 10.4 % (2.0-8.0); NEUTROPHILS # 3.2 10^3/uL (1.5-8.5); NEUTROPHILS % 50.7 % (36.0-66.0); PLATELET COUNT, AUTOMATED 368 10^3/uL (150-450)
[2024-11-09 12:15] LABS: ALT/SGPT 33.0 U/L (7.0-40); AST/SGOT 39.0 U/L (<34); CALCIUM LEVEL 9.2 MG/DL (8.3-10.6); CARBON DIOXIDE LEVEL 28.0 MMOL/L (20-31); CHLORIDE LEVEL 104.0 MMOL/L (98-107); CREATININE FOR GFR 0.93 MG/DL (0.55-1.30); GLOMERULAR FILTRATION RATE 66.5 (>45); POTASSIUM SERUM 4.4 MMOL/L (3.5-5.1); SODIUM LEVEL 144.0 MMOL/L (136-145)
== END ==
LOC: M LAB 10:53
PROVIDERS: ATTEND Internal Medicine Hematology & Oncology
DX: C34.80 Malignant neoplasm of overlapping sites of unspecified bronchus and lung (principal); C34.90 Malignant neoplasm of unspecified part of unspecified bronchus or lung; R53.83 Other fatigue

== ENCOUNTER 2025-02-01 06:55 | Day surgery (SDC) | payer MEDICARE, BC ==
[~2025-02-01] VITALS: Ht 165.1 cm; Wt 64.0 kg
[~2025-02-01 06:55] MED LIST changes: +FAMO1TAB11 PO; +MIDAZOLAM INJ 2 MG/2 ML VIAL As Ordered ONE; +TOBR5DRO6 OP; -TOBRSUS39 OP
[2025-02-01] MEDS ORDERED: LR 1,000 ML IV SCH (07:00)
[2025-02-01] MEDS: FLURBIPROFEN 0.03% OPHTH SOLN 2.5 ML OD SCH (07:51)
[2025-02-01] MEDS: CYCLOPENTOLATE 1% OPHTH SOLN 2 ML BTL OD SCH (07:51)
[2025-02-01] MEDS: TETRACAINE 0.5% OPHTH SOLN 4ML OD SCH (07:51)
[2025-02-01] MEDS: PHENYLEPHRINE 2.5% OPHTH SOL 2ML OD SCH (07:51)
[2025-02-01] MEDS: CEFUROXIME 1 MG/0.1 ML INTRACAMERAL INJ As Ordered ONE (09:26)
[2025-02-01] MEDS: LIDOCAINE 1% SDV 5 ML VIAL As Ordered ONE (09:26)
[2025-02-01 09:45] VITALS: BP 120/71; TEMP 97.2; O2SAT 98
== END 2025-02-01 09:59 | disposition home or self-care (01) ==
LOC: M SDC 06:55
PROVIDERS: ATTEND Ophthalmology
DX: H25.11 Age-related nuclear cataract, right eye (principal); K21.9 Gastro-esophageal reflux disease without esophagitis; Z79.899 Other long term (current) drug therapy; Z79.82 Long term (current) use of aspirin; Z85.118 Personal history of other malignant neoplasm of bronchus and lung; Z85.830 Personal history of malignant neoplasm of bone; Z85.05 Personal history of malignant neoplasm of liver; Z85.841 Personal history of malignant neoplasm of brain; Z92.3 Personal history of irradiation; Z92.21 Personal history of antineoplastic chemotherapy
CPT/HCPCS: 66984; J0697; J2250; J3010; V2632